=== PATIENT | female | born 1970 | race Caucasian/White ===

== ENCOUNTER → 2019-05-21 09:34 | Outpatient (CLI) | payer OTHER, SELFPAY ==
[2019-05-21 12:57] LABS: Vitamin D,25 Hydroxy 31.2 ng/mL (29.95-100.01)
[2019-05-21 12:58] LABS: Anion Gap 5 (5-15); BUN 10 mg/dL (7-18); BUN/Creat Ratio 13.4 RATIO (10-20); Calcium,Total 8.9 mg/dL (8.5-10.1); Chloride 110 mmol/L (98-107); Cholesterol 126 mg/dL (200); Creatinine, Serum 0.74 mg/dL (0.55-1.02); EST Glomerular Filtration Rate 89 mL/min (>60); Est Glom Filt Rate - Afr Amer 107 mL/min (>60); Glucose 66 mg/dL (74-106); High Density Lipoprotein 37 mg/dL; Potassium 3.6 mmol/L (3.5-5.1); Sodium Level 142 mmol/L (136-145); Triglycerides 97 mg/dL; Very Low Density Lipoprotein 19 mg/dL (5-40)
== END ==
PROVIDERS: Family Provider Family Medicine; PCP Family Medicine; Referring Provider Family Medicine; Visit Provider Family Medicine
DX: Z00.00 Encounter for general adult medical examination without abnormal findings (principal)
CPT/HCPCS: 36415; 80048; 80061; 82306

== ENCOUNTER → 2019-07-19 11:11 | Outpatient (CLI) | payer OTHER, SELFPAY ==
--- NOTE | 2019-07-19 11:14 | BI_ITS ---
MAMMOGRAPHY - BILATERAL SCREENING REASON FOR EXAM: Female, 49 years old. Routine annual screening examination. PERTINENT HISTORY: Grandmother with breast cancer. TECHNIQUE: Digital bilateral breast mo (3D mammographic acquisition) in the CC and MLO projections. 2-D mediolateral oblique (MLO) and craniocaudad (CC) views of both breasts were obtained. CAD: Full Field Digital Mammography with Computer Added Detection was performed. COMPARISON: Comparison is made with prior study dated September 15, 2015 and January 29, 2012. FINDINGS: Breast Composition: The breasts are heterogeneously dense, which may obscure small masses. There are no dominant masses or suspicious calcifications. No other significant abnormalities are identified. There has been no significant change since the prior study. BI/SCREEN MAMM (CAD) W/MO BILAT IMPRESSION: Stable bilateral screening mammogram. Yearly follow-up mammogram recommended. (A) ASSESSMENT CATEGORY: BIRADS Category 1: Negative. A letter regarding these results will be sent to the patient by the facility within 30 days. Approximately 10% of breast cancers are not detected by mammography. A normal mammogram should not delay biopsy of a clinically suspicious abnormality. [id number] Electronically Signed: Yon Delacruz, at 14:24 EDT , Service support ,
== END ==
PROVIDERS: Family Provider Family Medicine; PCP Family Medicine; Referring Provider Family Medicine; Visit Provider Family Medicine
DX: Z12.31 Encounter for screening mammogram for malignant neoplasm of breast (principal)
CPT/HCPCS: 77063; 77067

== ENCOUNTER → 2019-10-20 07:02 | Outpatient (CLI) | payer OTHER, SELFPAY ==
[2019-10-20 10:06] LABS: Absolute Lymphocyte Count 2.42 X10^3/uL (0.83-4.51); Absolute Neutrophil Count 2.6 X10^3/uL (2.0-7.7); Basophil# 0.05 X10^3/uL; Basophil% 0.9 % (0-1); Eosinophil# 0.16 X10^3/uL; Eosinophils% 2.9 % (0-5); Hematocrit 43.7 % (37-47); Hemoglobin 14.1 g/dL (12.0-15.0); Lymphocyte # 2.42 X10^3/ul (4.0); Lymphocyte % 43.2 % (19-41); Mean Corp Hgb Conc 32.3 g/dL (32-36); Mean Corpuscular Hgb 30.4 pg (27.0-32.0); Mean Corpuscular Volume 94.2 fL (81-99); Mean Platelet Vol. 10.8 fl (6.2-12.0); Monocyte# 0.34 X10^3/uL; Monocyte% 6.1 % (0-10); NRBC Flagged by Analyzer 0 % (0-5); Neutrophil # 2.62 X10^3/uL (2.7-7.7); Neutrophil % 46.7 % (47-70); Platelet Count 322 K/mm3 (150-450); RBC Distribution Width CV 12.9 % (11.6-14.6); RBC Distribution Width SD 44.4 fl (35.1-43.9); Red Blood Count 4.64 M/mm3 (4.2-5.4); White Blood Count 5.6 K/mm3 (4.4-11.0)
[2019-10-20 10:33] LABS: AST(SGOT) 20 U/L (15-37); Alanine Aminotransfer ALT/SGPT 34 U/L (13-56); Albumin, Serum 3.8 g/dL (3.2-5.0); Alkaline Phosphatase 80 U/L (45-117); Anion Gap 4 (5-15); BUN 8 mg/dL (7-18); BUN/Creat Ratio 9.6 RATIO (10-20); Calcium,Total 9.1 mg/dL (8.5-10.1); Chloride 109 mmol/L (98-107); Creatinine, Serum 0.83 mg/dL (0.55-1.02); EST Glomerular Filtration Rate 78 mL/min (>60); Est Glom Filt Rate - Afr Amer 94 mL/min (>60); Globulin 3.9 g/dL (2.2-4.2); Glucose 98 mg/dL (74-106); Potassium 3.2 mmol/L (3.5-5.1); Protein, Total 7.7 g/dL (6.4-8.2); Sodium Level 140 mmol/L (136-145)
== END ==
PROVIDERS: Family Provider Family Medicine; PCP Family Medicine; Referring Provider Family Medicine; Visit Provider Family Medicine
DX: K59.00 Constipation, unspecified (principal)
CPT/HCPCS: 36415; 80053; 85025

== ENCOUNTER → 2019-10-25 14:11 | Outpatient (CLI) | payer OTHER, SELFPAY ==
--- NOTE | 2019-10-25 14:13 | CT_ITS ---
STUDY: CT ABDOMEN AND PELVIS WITH CONTRAST REASON FOR EXAM: Female, 49 years old. CONSTIPATION X 2 MONTHS RADIATION DOSAGE (If Supplied By Facility): CTDIvol = ( 9.97 ) mGy, DLP = ( 619.00 ) mGycm TECHNIQUE: Transaxial images were obtained from the dome of the diaphragm to the symphysis pubis without oral contrast. Oral and amp; IV Readi-CAT and amp; 100mL Isovue-300 was administered. Sagittal and coronal images were reconstructed. Individualized dose optimization techniques were used for this CT. COMPARISON: None. FINDINGS: The visualized lung bases are unremarkable. The visualized portions of the heart are within normal limits. Normal liver. There are surgical clips in the gallbladder fossa consistent with a prior cholecystectomy. Normal spleen. Normal pancreas. Normal bilateral adrenal glands. Normal right kidney. Normal left kidney. Normal visualized stomach. Normal small intestine. Increased fecal debris in the colon which may indicate constipation. The appendix is visualized and appears normal. Normal abdominal aorta. Normal inferior vena cava. Normal retroperitoneum. Normal urinary bladder. There is absence of the uterus consistent with a prior hysterectomy. Normal abdominal wall. Degenerative disease at L5-S1. CT/Abdomen/Pelvis WITH Contrast IMPRESSION: Constipation. No acute appendicitis or bowel obstruction. Status post cholecystectomy, remainder of abdominal viscera are unremarkable. Electronically Signed: Reina Stubbs MD at 4:21 EST , Service support ,
== END ==
PROVIDERS: PCP Family Medicine; Referring Provider Family Medicine; Visit Provider Family Medicine
DX: K59.00 Constipation, unspecified (principal)
CPT/HCPCS: 74177; Q9967

== ENCOUNTER → 2019-11-15 16:47 | Outpatient (CLI) | payer OTHER, SELFPAY ==
[2019-11-15 18:45] LABS: Anion Gap 4 (5-15); BUN 7 mg/dL (7-18); BUN/Creat Ratio 8.7 RATIO (10-20); Calcium,Total 9.1 mg/dL (8.5-10.1); Chloride 106 mmol/L (98-107); Creatinine, Serum 0.81 mg/dL (0.55-1.02); EST Glomerular Filtration Rate 81 mL/min (>60); Est Glom Filt Rate - Afr Amer 97 mL/min (>60); Glucose 93 mg/dL (74-106); Potassium 3.7 mmol/L (3.5-5.1); Sodium Level 138 mmol/L (136-145); T4 Total, Thyroxin 5.4 ug/dL (4.8-13.9); Thyroid Stim Hormone (TSH) 1.86 uIU/mL (0.358-3.74)
== END ==
PROVIDERS: PCP Family Medicine; Referring Provider Internal Medicine Gastroenterology; Visit Provider Internal Medicine Gastroenterology
DX: R19.4 Change in bowel habit (principal)
CPT/HCPCS: 36415; 80048; 84436; 84443

== ENCOUNTER → 2019-11-19 14:50 | Outpatient (CLI) | payer OTHER, SELFPAY ==
[2019-11-22 14:41] LABS: HSV 2 IgG 2.96 index (0.00-0.90)
== END ==
PROVIDERS: PCP Family Medicine; Referring Provider Family Medicine; Visit Provider Family Medicine
DX: Z20.828 Contact with and (suspected) exposure to other viral communicable diseases (principal)
CPT/HCPCS: 36415; 86695; 86696

== ENCOUNTER → 2019-11-25 08:03 | Outpatient (CLI) | payer OTHER, SELFPAY ==
--- NOTE | 2019-11-29 08:30 | RAD_ITS ---
STUDY: ABDOMINAL SERIES REASON FOR EXAM: Female, 49 years old. CONSTIPATION. COLONIC TRANSIT EXAM. 3 IMAGES RADIATION DOSAGE (If Supplied By Facility): CTDIvol = ( ) mGy, DLP = ( ) mGycm. Individualized dose optimization techniques were used for this CT.? FLUOROSCOPY TIME (if supplied): ( ) minutes/seconds TECHNIQUE: 3 separate abdominal studies were performed, second performed 10 minutes after the first, third 90 minutes after the first COMPARISON: None. FINDINGS: The initial study at 6:58 AM does not show any evidence of Sitzmarks markers. The bowel gas pattern is unremarkable. No free air or acute abnormalities noted. At 7:08 AM, there are approximately 30 markers along what would be the normal course of the descending colon, and approximately 15 markers along the course of what would be the descending colon, and 2 markers within the pelvis. At 8:31 AM, there are 5 markers left of the L2 vertebral body and approximately 34 markers on the right side of the abdomen likely within the ascending colon and approximately 10 and 6 markers in the pelvis likely within the sigmoid. RAD/Colonic Trans GI/w Mul Image IMPRESSION: No acute abdominal process Markers as described Electronically Signed: Jose Armando Hong MD at 9:29 EST , Service support ,
== END ==
PROVIDERS: PCP Family Medicine; Referring Provider Internal Medicine Gastroenterology; Visit Provider Internal Medicine Gastroenterology
DX: K59.00 Constipation, unspecified (principal)
CPT/HCPCS: 74248

== ENCOUNTER → 2019-11-29 08:17 | Outpatient (CLI) | payer OTHER, SELFPAY | PROVIDERS: PCP Family Medicine; Referring Provider Internal Medicine Gastroenterology; Visit Provider Internal Medicine Gastroenterology | DX: Z00.00 Encounter for general adult medical examination without abnormal findings (principal) ==

== ENCOUNTER → 2019-12-01 06:23 | Outpatient (CLI) | payer OTHER, SELFPAY | PROVIDERS: PCP Family Medicine; Referring Provider Internal Medicine Gastroenterology; Visit Provider Internal Medicine Gastroenterology | DX: Z00.00 Encounter for general adult medical examination without abnormal findings (principal) ==

== ENCOUNTER → 2019-12-03 06:47 | Outpatient (CLI) | payer OTHER, SELFPAY | PROVIDERS: PCP Family Medicine; Referring Provider Internal Medicine Gastroenterology; Visit Provider Internal Medicine Gastroenterology | DX: Z00.00 Encounter for general adult medical examination without abnormal findings (principal) ==

== ENCOUNTER → 2020-07-19 16:22 | Outpatient (CLI) | payer OTHER, SELFPAY ==
--- NOTE | 2020-07-19 16:26 | RAD_ITS ---
STUDY: X-RAY - PELVIS AND BILATERAL HIPS REASON FOR EXAM: Female, 50 years old. Left hip pain TECHNIQUE: AP view of the pelvis.? 2 views of the right hip, and 2 views of the left hip were obtained. COMPARISON: None. FINDINGS: There is a non-specific bowel gas pattern. Normal visualized soft tissue structures. Normal bilateral iliac wings, sacroiliac joints and visualized sacrum. Normal bilateral superior and inferior pubic rami. Normal pubic symphysis. Normal bilateral ischial tuberosities. Normal visualized right femoral head. There is osteoarthritic spur formation of the right acetabular rim. There is mild articular joint space narrowing of the right hip. Normal visualized left femoral head. Normal left acetabulum. Normal left hip joint. RAD/Hips B/L min 2 views w/ Pelvis IMPRESSION: Osteoarthritis of the right hip joint. Electronically Signed: Yon Delacruz, at 15:54 EDT , Service support ,
== END ==
LOC: MTLAB 16:24 → MTRAD 16:24
PROVIDERS: PCP Family Medicine; Referring Provider Family Medicine; Visit Provider Family Medicine
DX: M25.552 Pain in left hip (principal)
CPT/HCPCS: 73521

== ENCOUNTER → 2020-11-20 09:31 | Outpatient (CLI) | payer OTHER, SELFPAY ==
[2020-11-20 12:31] LABS: Vitamin D,25 Hydroxy 22.3 ng/mL
[2020-11-20 12:36] LABS: Anion Gap 6 (5-15); BUN 10 mg/dL (7-18); BUN/Creat Ratio 12.9 RATIO (10-20); Calcium,Total 9.1 mg/dL (8.5-10.1); Chloride 107 mmol/L (98-107); Cholesterol 140 mg/dL (200); Creatinine, Serum 0.78 mg/dL (0.55-1.02); EST Glomerular Filtration Rate 84 mL/min (>60); Est Glom Filt Rate - Afr Amer 102 mL/min (>60); Glucose 74 mg/dL (74-106); High Density Lipoprotein 34 mg/dL; Potassium 3.6 mmol/L (3.5-5.1); Sodium Level 139 mmol/L (136-145); Triglycerides 114 mg/dL; Very Low Density Lipoprotein 23 mg/dL (5-40)
== END ==
PROVIDERS: PCP Family Medicine; Visit Provider Family Medicine
DX: Z00.00 Encounter for general adult medical examination without abnormal findings (principal); R19.7 Diarrhea, unspecified
CPT/HCPCS: 36415; 80048; 80061; 82306

== ENCOUNTER → 2021-04-12 15:22 | Outpatient (CLI) | payer OTHER, SELFPAY ==
--- NOTE | 2021-04-12 15:27 | RAD_ITS ---
STUDY: X-RAY - LEFT CALCANEUS REASON FOR EXAM: Female, 51 years old. HEEL PAIN TECHNIQUE: 2 view(s) of the calcaneus were obtained. COMPARISON: None. FINDINGS: Normal visualized calcaneus. RAD/Calcaneus min 2 Views IMPRESSION: Normal x-ray examination of the calcaneus. Electronically Signed: Yon Delacruz MD at 15:53 EDT , Service support ,
== END ==
PROVIDERS: PCP Family Medicine; Referring Provider Family Medicine; Visit Provider Family Medicine
DX: M79.672 Pain in left foot (principal)
CPT/HCPCS: 73650

== ENCOUNTER → 2021-05-28 16:26 | Outpatient (CLI) | payer OTHER, SELFPAY ==
[2021-05-28 17:44] LABS: Absolute Lymphocyte Count 2.43 X10^3/uL (0.83-4.51); Basophil# 0.03 X10^3/uL; Basophil% 0.4 % (0-1); Eosinophils% 1.4 % (0-5); Hemoglobin 12.4 g/dL (12.0-15.0); Lymphocyte # 2.43 X10^3/ul (0.83-4.51); Lymphocyte % 34.3 % (19-41); Mean Corp Hgb Conc 32.6 g/dL (32-36); Mean Corpuscular Hgb 30.5 pg (27.0-32.0); Mean Corpuscular Volume 93.4 fL (81-99); Mean Platelet Vol. 10.9 fl (6.2-12.0); Monocyte# 0.53 X10^3/uL; Monocyte% 7.5 % (0-10); NRBC Flagged by Analyzer 0 % (0-5); Neutrophil # 3.98 X10^3/uL (2.7-7.7); Neutrophil % 56.1 % (47-70); Platelet Count 292 K/mm3 (150-450); RBC Distribution Width CV 12.5 % (11.6-14.6); Red Blood Count 4.07 M/mm3 (4.2-5.4); White Blood Count 7.1 K/mm3 (4.4-11.0)
[2021-05-28 18:05] LABS: Anion Gap 5 (5-15); BUN 12 mg/dL (7-18); BUN/Creat Ratio 17.5 RATIO (10-20); Calcium,Total 8.8 mg/dL (8.5-10.1); Chloride 105 mmol/L (98-107); Creatinine, Serum 0.68 mg/dL (0.55-1.02); EST Glomerular Filtration Rate 97 mL/min (>60); Est Glom Filt Rate - Afr Amer 117 mL/min (>60); Free T3 2.4 pg/mL (2.18-3.98); Glucose 90 mg/dL (74-106); Potassium 3.3 mmol/L (3.5-5.1); Sodium Level 137 mmol/L (136-145); T4 Total, Thyroxin 5.2 ug/dL (4.8-13.9); Thyroid Stim Hormone (TSH) 2.19 uIU/mL (0.358-3.74)
== END ==
PROVIDERS: PCP Family Medicine; Referring Provider Family Medicine; Visit Provider Family Medicine
DX: L65.9 Nonscarring hair loss, unspecified (principal); R53.83 Other fatigue
CPT/HCPCS: 36415; 80048; 84436; 84443; 84481; 85025

== ENCOUNTER → 2021-07-16 09:40 | Outpatient (CLI) | payer OTHER, SELFPAY ==
--- NOTE | 2021-07-16 09:44 | BI_ITS ---
MAMMOGRAPHY - BILATERAL SCREENING REASON FOR EXAM: Female, 51 years old. Routine annual screening examination. PERTINENT HISTORY: Mother with breast cancer. Grandmother with breast cancer. TECHNIQUE: Digital bilateral breast mo (3D mammographic acquisition) in the CC and MLO projections. 2-D mediolateral oblique (MLO) and craniocaudad (CC) views of both breasts were obtained. CAD: Full Field Digital Mammography with Computer Added Detection was performed. COMPARISON: Comparison is made with prior study 07/19/2019 and 09/15/2015. FINDINGS: Breast Composition: The breasts are heterogeneously dense, which may obscure small masses. There are no dominant masses or suspicious calcifications. Calcified nodules are seen in the upper outer aspect of the left breast. This is suggestive of calcifying fibroadenomas. No other significant abnormalities are identified. There has been no significant change since the prior study. BI/SCRN MAMM (CAD)W/MO BILAT IMPRESSION: Stable bilateral screening mammogram. Yearly follow-up mammogram recommended. (A) ASSESSMENT CATEGORY: BIRADS Category 2: Benign. A letter regarding these results will be sent to the patient by the facility within 30 days. Approximately 10% of breast cancers are not detected by mammography. A normal mammogram should not delay biopsy of a clinically suspicious abnormality. [id number] Electronically Signed: Yon Delacruz MD at 11:01 EDT , Service support ,
== END ==
PROVIDERS: PCP Family Medicine; Referring Provider Family Medicine; Visit Provider Family Medicine
DX: Z12.31 Encounter for screening mammogram for malignant neoplasm of breast (principal); Z80.3 Family history of malignant neoplasm of breast
CPT/HCPCS: 77063; 77067

== ENCOUNTER → 2022-01-25 | Outpatient (CLI) | payer OTHER, SELFPAY ==
--- NOTE | 2022-01-25 14:43 | RAD_ITS ---
INDICATION: PAIN EXAMINATION/TECHNIQUE: X-RAY - LEFT XR Shoulder Min 2 Views 4 VIEWS COMPARISON: None. FINDINGS: SOFT TISSUES: No soft tissue swelling or gas. No radiopaque foreign body. BONES/JOINTS: No acute fracture or subluxation.. Normal alignment. Preservation of the joint space.. No sclerotic or destructive changes observed. RAD/Shoulder min 2 Views IMPRESSION: No evidence of acute osseous abnormality is seen. Electronically Signed: Juan Henry MD at 16:05 EDT ,
[2022-01-25 17:36] LABS: Absolute Lymphocyte Count 2.61 X10^3/uL (0.83-4.51); Absolute Neutrophil Count 3.1 X10^3/uL (2.0-7.7); Basophil# 0.05 X10^3/uL; Basophil% 0.8 % (0-1); Eosinophil# 0.09 X10^3/uL; Eosinophils% 1.4 % (0-5); Hematocrit 40.9 % (37-47); Hemoglobin 13.1 g/dL (12.0-15.0); Lymphocyte # 2.61 X10^3/ul (0.83-4.51); Lymphocyte % 41.5 % (19-41); Mean Corpuscular Hgb 29.7 pg (27.0-32.0); Mean Corpuscular Volume 92.7 fL (81-99); Monocyte# 0.46 X10^3/uL; Monocyte% 7.3 % (0-10); NRBC Flagged by Analyzer 0 % (0-5); Neutrophil # 3.07 X10^3/uL (2.7-7.7); Neutrophil % 48.8 % (47-70); Platelet Count 341 K/mm3 (150-450); RBC Distribution Width CV 13.1 % (11.6-14.6); RBC Distribution Width SD 44.8 fl (35.1-43.9); Red Blood Count 4.41 M/mm3 (4.2-5.4); White Blood Count 6.3 K/mm3 (4.4-11.0)
[2022-01-25 17:52] LABS: Vitamin D,25 Hydroxy 27.3 ng/mL
[2022-01-25 17:56] LABS: ALB/GLOB Ratio 0.9 RATIO (0.9-2.4); AST(SGOT) 20 U/L (15-37); Alanine Aminotransfer ALT/SGPT 31 U/L (13-56); Albumin, Serum 3.9 g/dL (3.2-5.0); Alkaline Phosphatase 74 U/L (45-117); Anion Gap 4 (5-15); BUN 6 mg/dL (7-18); BUN/Creat Ratio 7.5 RATIO (10-20); Calcium,Total 8.8 mg/dL (8.5-10.1); Chloride 107 mmol/L (98-107); EST Glomerular Filtration Rate 81 mL/min (>60); Est Glom Filt Rate - Afr Amer 98 mL/min (>60); Globulin 4.2 g/dL (2.2-4.2); Glucose 85 mg/dL (74-106); Potassium 3.6 mmol/L (3.5-5.1); Protein, Total 8.1 g/dL (6.4-8.2); Sodium Level 139 mmol/L (136-145); Thyroid Stim Hormone (TSH) 1.83 uIU/mL (0.358-3.74)
== END | disposition home or self-care (01) ==
PROVIDERS: PCP Family Medicine; Referring Provider Family Medicine; Visit Provider Family Medicine
DX: R63.5 Abnormal weight gain (principal); R53.83 Other fatigue; M25.512 Pain in left shoulder
CPT/HCPCS: 36415; 73030; 80053; 82306; 84443; 85025

== ENCOUNTER → 2022-05-17 | Outpatient (CLI) | payer OTHER, SELFPAY ==
--- NOTE | 2022-05-17 08:45 | MRI_ITS ---
STUDY: MRI CERVICAL SPINE WITHOUT CONTRAST REASON FOR EXAM: Female, 52 years old. CERVICAL STENOSIS TECHNIQUE: Standardized fat and water weighted pulse sequences were obtained in the sagittal and axial planes. COMPARISON: None FINDINGS: Normal foramen magnum and brainstem-cervical cord junction. Normal craniovertebral junction. Normal anterior atlantoaxial articulation. Normal odontoid process. Normal cervical lordosis. Normal vertebral bodies and posterior osseous elements. C2-3: Normal endplates. Normal disc height, signal and morphology. Normal central canal and intervertebral neural foramina. C3-4: Normal endplates. Normal disc height, signal and morphology. Normal central canal and intervertebral neural foramina. C4-5: Normal endplates. Normal disc height, signal and morphology. Normal central canal and intervertebral neural foramina. C5-6: Normal endplates. Normal disc height, signal and morphology. Normal central canal and intervertebral neural foramina. C6-7: Normal endplates. Normal disc height, signal and morphology. Normal central canal and intervertebral neural foramina. Small perineural cyst in the right intervertebral neural foramen. C7-T1: Normal endplates. Normal disc height, signal and morphology. Normal central canal and intervertebral neural foramina. Small perineural cyst in both intervertebral neural foramina. T1-T2, T2-T3, T3-T4 and T4-T5: (Sagittal only). Normal endplates. Normal disc height, signal and morphology. Normal central canal and intervertebral neural foramina. Small perineural cysts in both T1-T2 intervertebral neural foramina. Small perineural cyst in the Right T2-T3 intervertebral neural foramen and left T4-T5 intervertebral neural foramen. Normal cervical cord. Normal included upper thoracic spinal cord. Normal included brainstem and cerebellum. Normal visualized soft tissue structures. MRI/Spine Cervical (Routine) IMPRESSION: Normal unenhanced MR examination of the cervical spine. Electronically Signed: Nathan Shearer MD at 10:41 EDT ,
== END | disposition home or self-care (01) ==
PROVIDERS: PCP Family Medicine; Referring Provider Family Medicine; Visit Provider Family Medicine
DX: M48.02 Spinal stenosis, cervical region (principal)
CPT/HCPCS: 72141

== ENCOUNTER → 2022-07-16 | Outpatient (CLI) | payer OTHER, SELFPAY ==
--- NOTE | 2022-07-16 10:09 | BI_ITS ---
MAMMOGRAPHY - BILATERAL SCREENING REASON FOR EXAM: Female, 52 years old. Routine annual screening examination. PERTINENT HISTORY: Mother with breast cancer. Grandmother with breast cancer. TECHNIQUE: Digital bilateral breast mo (3D mammographic acquisition) in the CC and MLO projections. 2-D mediolateral oblique (MLO) and craniocaudad (CC) views of both breasts were obtained. CAD: Full Field Digital Mammography with Computer Added Detection was performed. COMPARISON: Comparison is made with prior studies 07/16/2021 and 07/19/2019. FINDINGS: Breast Composition: The breasts are heterogeneously dense, which may obscure small masses. There is a 3 cm x 2.6 cm well-defined nodule in the upper lateral aspect of the left breast. Correlation with ultrasound is recommended. Stable calcified nodules in the upper outer quadrant of the left breast. No other significant abnormalities are identified. BI/SCRN MAMM (CAD)W/MO BILAT IMPRESSION: 3 cm x 2.6 cm well-defined nodule in the upper outer quadrant of the left breast. Correlation with ultrasound is recommended. ASSESSMENT CATEGORY: BIRADS Category 0: Incomplete. Need additional imaging evaluation. A letter regarding these results will be sent to the patient by the facility within 30 days. Approximately 10% of breast cancers are not detected by mammography. A normal mammogram should not delay biopsy of a clinically suspicious abnormality. [id number] Electronically Signed: Yon Delacruz MD at 11:35 EDT ,
== END | disposition home or self-care (01) ==
LOC: OPBI 10:08
PROVIDERS: PCP Family Medicine; Visit Provider Family Medicine
DX: Z12.31 Encounter for screening mammogram for malignant neoplasm of breast (principal); Z80.3 Family history of malignant neoplasm of breast; N63.21 Unspecified lump in the left breast, upper outer quadrant
CPT/HCPCS: 77063; 77067

== ENCOUNTER → 2022-07-17 | Outpatient (CLI) | payer OTHER, SELFPAY ==
--- NOTE | 2022-07-17 09:22 | US_ITS ---
STUDY: ULTRASOUND BREAST - LEFT REASON FOR EXAM: Female, 52 years old. Abnormal screening mammogram. TECHNIQUE: Axial and longitudinal images of the LEFT breast were performed with a high resolution ultrasound transducer. # OF IMAGES: 39 COMPARISON: Comparison is made with prior mammogram dated 07/16/2022. FINDINGS: LEFT Breast: Multiple cysts are seen. The largest cyst is at the 1 o''clock position of the breast at 3 cm from nipple measuring 2.5 cm x 2.9 cm x 1.5 cm. US/Breast Limited Unilateral IMPRESSION: Multiple cysts. ASSESSMENT CATEGORY: BIRADS Category 2: Benign. A letter regarding these results will be sent to the patient by the facility within 30 days. Electronically Signed: Yon Delacruz MD at 15:43 EDT ,
== END | disposition home or self-care (01) ==
LOC: OPUS 09:20
PROVIDERS: PCP Family Medicine; Visit Provider Family Medicine
DX: N63.20 Unspecified lump in the left breast, unspecified quadrant (principal)
CPT/HCPCS: 76642

== ENCOUNTER → 2023-01-03 | Outpatient (CLI) | payer OTHER, SELFPAY ==
[2023-01-03 13:58] LABS: Follicle Stimulating Hormone 42.6 mIU/mL; Luteinizing Hormone 41.9 mIU/mL; Thyroid Stim Hormone (TSH) 1.88 uIU/mL (0.358-3.74)
[2023-01-08 09:49] LABS: Estrogen, Total, Serum 49 pg/mL (.)
== END | disposition home or self-care (01) ==
LOC: MTLAB 10:18
PROVIDERS: PCP Family Medicine; Referring Provider Family Medicine; Visit Provider Family Medicine
DX: Z78.0 Asymptomatic menopausal state (principal)
CPT/HCPCS: 36415; 82672; 83001; 83002; 84443

== ENCOUNTER → 2023-06-25 | Outpatient (CLI) | payer OTHER, SELFPAY ==
[2023-06-25 11:18] LABS: Anion Gap 5 (5-15); BUN 9 mg/dL (7-18); BUN/Creat Ratio 9.8 RATIO (10-20); Calcium,Total 9.9 mg/dL (8.5-10.1); Chloride 99 mmol/L (98-107); Creatinine, Serum 0.92 mg/dL (0.55-1.02); EST Glomerular Filtration Rate 69 mL/min (>60); Est Glom Filt Rate - Afr Amer 83 mL/min (>60); Glucose 98 mg/dL (74-106); Potassium 3.4 mmol/L (3.5-5.1); Sodium Level 137 mmol/L (136-145)
== END | disposition home or self-care (01) ==
LOC: MFPLAB 08:52
PROVIDERS: PCP Family Medicine; Visit Provider Family Medicine
DX: R25.2 Cramp and spasm (principal)
CPT/HCPCS: 36415; 80048

== ENCOUNTER → 2023-09-12 | Outpatient (CLI) | payer OTHER, SELFPAY ==
--- NOTE | 2023-09-12 10:47 | BI_ITS ---
MAMMOGRAPHY - BILATERAL SCREENING REASON FOR EXAM: Female, 53 years old. Routine annual screening examination. PERTINENT HISTORY: Mother with breast cancer. TECHNIQUE: Digital bilateral breast mo (3D mammographic acquisition) in the CC and MLO projections. 2-D mediolateral oblique (MLO) and craniocaudad (CC) views of both breasts were obtained. CAD: Full Field Digital Mammography with Computer Added Detection was performed. COMPARISON: Comparison is made with prior study July 16, 2022 and July 16, 2021. FINDINGS: Breast Composition: The breasts are heterogeneously dense, which may obscure small masses. The previously seen nodular density in the upper outer aspect of the left breast in size. It presently measures 1.3 cm. Stable calcification at that site. No other significant abnormalities are identified. BI/SCRN MAMM (CAD)W/MO BILAT IMPRESSION: Stable bilateral screening mammogram. Yearly follow-up mammogram recommended. (A) ASSESSMENT CATEGORY: BIRADS Category 2: Benign. A letter regarding these results will be sent to the patient by the facility within 30 days. Approximately 10% of breast cancers are not detected by mammography. A normal mammogram should not delay biopsy of a clinically suspicious abnormality. [id number] Electronically Signed: Yon Delacruz MD at 12:33 EST ,
== END | disposition home or self-care (01) ==
LOC: OPBI 10:36
PROVIDERS: PCP Family Medicine; Referring Provider Family Medicine; Visit Provider Family Medicine
DX: Z12.31 Encounter for screening mammogram for malignant neoplasm of breast (principal)
CPT/HCPCS: 77063; 77067

== ENCOUNTER → 2023-11-24 | Outpatient (CLI) | payer BC, SELFPAY ==
[2023-11-24 18:25] LABS: Anion Gap 2 (5-15); BUN 8 mg/dL (7-18); Calcium,Total 8.7 mg/dL (8.5-10.1); Chloride 108 mmol/L (98-107); Creatinine, Serum 0.66 mg/dL (0.55-1.02); EST Glomerular Filtration Rate 99 mL/min (>60); Est Glom Filt Rate - Afr Amer 120 mL/min (>60); Glucose 83 mg/dL (74-106); Potassium 3.1 mmol/L (3.5-5.1); Sodium Level 141 mmol/L (136-145); Thyroid Stim Hormone (TSH) 2.31 uIU/mL (0.358-3.74)
== END | disposition home or self-care (01) ==
LOC: MTLAB 16:59
PROVIDERS: PCP Family Medicine; Referring Provider Family Medicine; Visit Provider Family Medicine
DX: R25.2 Cramp and spasm (principal); E66.9 Obesity, unspecified
CPT/HCPCS: 36415; 80048; 84443

== ENCOUNTER 2024-01-06 13:00 | Emergency (ER) | payer BC, SELFPAY ==
[2024-01-06 13:01] VITALS: BP 148/91; PULSE 79; RESP 16; TEMP 36.2; O2SAT 97; BMI 26.9
--- NOTE | 2024-01-06 13:25 | EDS_ITS ---
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 Patient reports she normally has fullness in her right ear. However she is having episodes of bilateral ear pressure and head pressure for the past 2 days. These episodes occur approximately every 15 minutes lasting for approximately 1 minute associated with nausea. She also has throat pressure associated with these episodes. She reports she does not drink alcohol, smoke, does not consume much caffeine, and limits her sodium intake. She was initially diagnosed in May 2023 with M?ni?re's. She reports she was last seen by Dr. Enrique Saldivar 09/27. At that time she was prescribed triamterene?HCTZ for which she says quit working at the end of October 2023. She also takes Claritin daily at the recommendation of Dr. Enrique Saldivar. She denies exacerbating events. She denies any recent illnesses. Denies recent travel. Prior similar symptoms: No Recent Illness/Hospitalization: No PFSH <Flor Valle RN - Last Filed: 01/06/24 13:41> [facility] Medical History FH: cholecystectomy Gallstones History of back problems IBS (irritable bowel syndrome) Seasonal allergies Home Medications dicyclomine 10 mg capsule 10 mg PO BID 05/24/22 [History Last Taken Unknown] fluticasone propionate 50 mcg/actuation nasal spray,suspension gm intranasal 05/24/22 [History Last Taken Unknown] Saccharomyces boulardii 250 mg capsule (Daily Probiotic (S. boulardii)) 250 mg PO BID 07/22/23 [History Last Taken Unknown] mirtazapine 15 mg tablet (Remeron) 7.5 mg PO DAILY 07/22/23 [History Last Taken Unknown] triamterene 37.5 mg-hydrochlorothiazide 25 mg capsule 1 cap PO DAILY 07/22/23 [History Last Taken Unknown] prednisone 10 mg tablet 10 mg PO UD #33 tabs 01/06/24 [Rx Last Taken Unknown] Allergy/AdvReac Type Severity Reaction Status Date / Time bupropion [From Wellbutrin] Allergy Mild Itching Verified 01/06/24 13:01 Family History Mother Breast cancer Arthritis Depression Hypertension High cholesterol Surgical History History of hysterectomy History of lumbar surgery Hx of section Social History Smoking Status: Former smoker alcohol intake: never substance use type: does not use ROS <Flor Valle RN - Last Filed: 01/06/24 13:41> ROS ED Constitutional Constitutional ED: Denies chills, fever(s) or sweats Eyes Eyes: Denies change in vision ENT ENT ED: Reports ear pain bilateral and other Details: Ear pressure. Also reports pressure in her throat. Cardiovascular Cardiovascular: Denies chest pain, orthopnea, palpitations or racing heartbeat Respiratory/Chest Respiratory/Chest: Denies cough, dyspnea or orthopnea Gastrointestinal Gastrointestinal: Reports nausea; Denies abdominal pain, diarrhea or vomiting Genitourinary Genitourinary ED: Denies dysuria, hematuria or urinary frequency Musculoskeletal Musculoskeletal: Denies arthralgias or myalgias Integumentary Denies rash Neurologic Neurologic: Reports other Details: Head pressure Psychiatric Psychiatric: Denies anxiety or depression EXAM <Flor Valle RN - Last Filed: 01/06/24 13:41> Physical Exam Narrative Exam Narrative: Patient is awake, alert, cooperative, good historian Const Vital Signs: 01/06/24 13:01 Temperature 97.1 F L Temperature Source Temporal Pulse Rate 79 Respiratory Rate 16 Blood Pressure 148/91 H Blood Pressure Mean 110 Pulse Ox 97 Oxygen Delivery Method Room Air Positive well nourished and well developed General Appearance ED: well developed and NAD HEENT Reports TM's clear and moist mucous membranes HEENT Narrative: Bilateral ear exam reveals shiny tympanic membrane. No bulging noted. No drainage noted. Negative for trauma Tympanic Membrane ED: Yes TM's clear bilateral Eyes PERRL and EOMs intact bilaterally Neck no lymphadenopathy, supple and no JVD Chest Wall inspection of chest normal and palpation of chest normal Resp normal respiratory effort and clear to auscultation bilaterally Auscultation: Negative for rales, rhonchi, wheezes or diminished lung sounds Cardio regular rate, regular rhythm, S1 normal heart sound and S2 normal heart sound GI normal to inspection, nondistended, normoactive bowel sounds and non-tender Palpation: soft Narrative: Denies dysuria, hematuria, and urinary frequency Extremity normal to inspection General Extremety ED: Negative for edema or tenderness General Extremity: Negative for edema Neuro oriented x3 Sensorium / Orientation: alert Motor Exam: strength 5/5 throughout Psych mental status grossly normal Skin no rashes or lesions noted, no wounds and skin turgor normal <Dr. Aleksandar Cason MD - Last Filed: 01/06/24 15:18> Physical Exam Const Vital Signs: 01/06/24 13:01 Temperature 97.1 F L Temperature Source Temporal Pulse Rate 79 Respiratory Rate 16 Blood Pressure 148/91 H Blood Pressure Mean 110 Pulse Ox 97 Oxygen Delivery Method Room Air MDM <Flor Valle RN - Last Filed: 01/06/24 13:41> [facility] Narrative Medical decision making narrative: Dr. Enrique Saldivar's office contacted regarding patient. I spoke with Trudi who spoke with Dr. Saldivar who recommended a course of prednisone and follow-up with his office for potential MRI. Patient updated on plan of care and agreeable. Patient to be discharged home. Differential Diagnosis Differential Diagnosis: Otitis media Differential Diagnosis: M?ni?re's disease Management Discussion w/another healthcare provider: Other (Dr. Cason, ED provider.) <Dr. Aleksandar Cason MD - Last Filed: 01/06/24 15:18> [facility] Narrative Medical decision making narrative: Dr. Enrique Saldivar's office contacted regarding patient. I spoke with Trudi who spoke with Dr. Saldivar who recommended a course of prednisone and follow-up with his office for potential MRI. Patient updated on plan of care and agreeable. Patient to be discharged home. I have personally performed a face to face assessment of the patient and have reviewed the JOHNSON Note. I performed a substantive portion of the visit including all aspects of the following. My sin findings include: History is remarkable for cochlear M?ni?re's disease. Patient presents with a pressure-like sensation and throbbing bilaterally. This been going on for some time. She has been following Dr. Enrique Saldivar for months. Patient denies double vision, blurred vision loss of vision. Trouble speech or swallowing. Denies paresthesia, anesthesia medics. 3 days ago she had some trouble with balance. This was transient. She denies cardiac respiratory symptoms. She denies black or maroon-colored stool. She denies urologic symptoms. Exam is unremarkable. Head is atraumatic, cephalic. Ears normal. TMs normal. Nares patent. Uvula midline. No deviation with protrusion. Neck supple. Trachea midline. There is no stridor. There is no carotid bruits. Heart is regular. Rate is normal. There is no murmur, gallop or rub. Lungs with auscultation. New Patient is alert orient x 3. There is no dysmetria. Motor is 5/5. Sensations intact. DTRs are 2+ at the bicep, brachialis, tricep, patella and ankle. There is no clonus Babinski sign noted. Medical Decision Making in light of patient's history and the fact that she is scheduled to see Dr. Enrique Saldivar this month's office was contacted. He agrees with administration of steroids. She is to call the office and he will have her seen this week and order outpatient MRI. Other additions or changes: None Discharge Plan Triage Chief Complaint: Ear Problem Other Complaint: Headache ED Provider: Aleksandar Cason Dx/Rx/DC Orders Clinical Impression: Meniere's disease Instructions: ED Meniere's Disease Prescriptions: New prednisone 10 mg tablet 10 mg PO UD Qty: 33 0RF Rx Instructions: Take 4 tablets daily for 3 days, then 3 daily for 3 days, then 2 daily for 3 days, then 1 a day for 3 days then 1 QOD for 3 doses. No Action dicyclomine 10 mg capsule 10 mg PO BID fluticasone propionate 50 mcg/actuation spray,suspension intranasal Patient Comments: USE 1 SPRAY IN THE NOSTRIL TWICE A DAY triamterene-hydrochlorothiazid 37.5-25 mg capsule 1 cap PO DAILY Saccharomyces boulardii [Daily Probiotic (S. boulardii)] 250 mg capsule 250 mg PO BID mirtazapine [Remeron] 15 mg tablet 7.5 mg PO DAILY Primary Care Provider: Dirk Hayes Referrals: Enrique Saldivar MD [Med Staff - Active Staff] - (Call office for follow-up) Dirk Hayes MD [Primary Care Provider] - Activity Restrictions/Additional Instructions: Take prednisone as prescribed. If feeling dizzy, sit or lay down to avoid injury. Call Dr. Saldivar's office for follow-up including possible MRI. Disposition Disposition: Home, Self Care Discharge Date/Time: 01/06/24 14:07
[2024-01-06] MEDS: predniSONE 20 MG Tablet 60 MG PO (14:00)
== END 2024-01-06 14:07 | disposition home or self-care (01) ==
PROVIDERS: Emergency Provider Emergency Medicine; PCP Family Medicine; Visit Provider Emergency Medicine
DX: H81.03 Meniere's disease, bilateral (principal); Z87.891 Personal history of nicotine dependence
CPT/HCPCS: 99283

== ENCOUNTER → 2024-01-12 | Outpatient (CLI) | payer BC, SELFPAY ==
[2024-01-12 15:43] LABS: Anion Gap 7 (5-15); BUN 13 mg/dL (7-18); BUN/Creat Ratio 12.5 RATIO (10-20); Calcium,Total 9.9 mg/dL (8.5-10.1); Chloride 97 mmol/L (98-107); Creatinine, Serum 1.04 mg/dL (0.55-1.02); EST Glomerular Filtration Rate 59 mL/min (>60); Est Glom Filt Rate - Afr Amer 72 mL/min (>60); Glucose 97 mg/dL (74-106); Potassium 3.2 mmol/L (3.5-5.1); Sodium Level 135 mmol/L (136-145)
== END | disposition home or self-care (01) ==
LOC: MFPLAB 11:23
PROVIDERS: PCP Family Medicine; Visit Provider Family Medicine
DX: E87.6 Hypokalemia (principal)
CPT/HCPCS: 36415; 80048

== ENCOUNTER → 2024-01-24 | Outpatient (CLI) | payer BC, SELFPAY ==
[2024-01-24 11:05] LABS: Anion Gap 7 (5-15); BUN 7 mg/dL (7-18); BUN/Creat Ratio 6.7 RATIO (10-20); Calcium,Total 9.2 mg/dL (8.5-10.1); Chloride 103 mmol/L (98-107); Creatinine, Serum 1.05 mg/dL (0.55-1.02); EST Glomerular Filtration Rate 59 mL/min (>60); Est Glom Filt Rate - Afr Amer 71 mL/min (>60); Glucose 107 mg/dL (74-106); Potassium 3.2 mmol/L (3.5-5.1); Sodium Level 140 mmol/L (136-145)
== END | disposition home or self-care (01) ==
LOC: LAB 10:12
PROVIDERS: PCP Family Medicine; Referring Provider Family Medicine; Visit Provider Family Medicine
DX: E87.6 Hypokalemia (principal)
CPT/HCPCS: 36415; 80048

== ENCOUNTER → 2024-01-29 | Outpatient (CLI) | payer BC, SELFPAY ==
--- NOTE | 2024-01-29 06:36 | MRI_ITS ---
STUDY: MRI BRAIN WITH AND WITHOUT CONTRAST (ATTENTION INTERNAL AUDITORY CANALS - I.A.C.''s) REASON FOR EXAM: Female, 53 years old. ASYMETRIC HEARING LOSS, RT TINNITUS TECHNIQUE: Standardized multiplanar fat and water weighted pulse sequences were obtained. IV 15ml clariscan was administered for the contrast portion of the examination. COMPARISON: None. FINDINGS: Normal bilateral temporal bones. Normal bilateral internal auditory canals. There is no demonstrated intracanalicular or cisternal vestibular schwannoma (acoustic neuroma). There is no enhancement of the bilateral VIIth or VIIIth cranial nerves. Normal bilateral cochlea, vestibules and semicircular canals. Normal size of the ventricles and extra-axial spaces for the patient''s age. Normal white matter tracts of the supratentorial brain. There is no evidence for recent intracranial ischemia or other cause of cytotoxic edema on diffusion weighted imaging (DWI). Normal bilateral basal ganglia. Normal thalami. Normal flow voids within the major intracranial circulation suggesting patency by spin echo criteria. Normal venous enhancement. There is no enhancing intra-axial or extra-axial abnormality. There is no extra-axial fluid accumulation. Normal sella turcica, pituitary gland, infundibular stalk, optic chiasm and hypothalamus. Normal tectal plate and pineal gland. Normal midbrain, arcelia and medulla. Normal cerebellum. Normal basal cisterns. No demonstrated orbital abnormality, within the constraints of a routine brain study. Normal visualized paranasal sinuses. Normal calvarium and skull base. Normal visualized soft tissue structures. Normal visualized upper cervical spine. MRI/Brain W/WO Contrast IMPRESSION: Normal unenhanced and enhanced MRI of the bilateral internal auditory canals (I.A.C''s). Electronically Signed: Juan Harris MD at 21:37 EDT ,
== END | disposition home or self-care (01) ==
PROVIDERS: PCP Family Medicine; Referring Provider Otolaryngology; Visit Provider Otolaryngology
DX: H90.41 Sensorineural hearing loss, unilateral, right ear, with unrestricted hearing on the contralateral side (principal); H93.11 Tinnitus, right ear
CPT/HCPCS: 70553; A9575

== ENCOUNTER → 2024-03-24 | Outpatient (CLI) | payer BC, SELFPAY ==
[2024-03-24 10:33] LABS: Erythrocyte Sedimentation Rate 8 mm/hr (0-30)
[2024-03-24 11:32] LABS: Anion Gap 10 (5-15); BUN 14 mg/dL (7-18); BUN/Creat Ratio 14.4 RATIO (10-20); Chloride 104 mmol/L (98-107); Creatinine, Serum 0.97 mg/dL (0.55-1.02); EST Glomerular Filtration Rate 64 mL/min (>60); Est Glom Filt Rate - Afr Amer 77 mL/min (>60); Glucose 96 mg/dL (74-106); Magnesium 2.3 mg/dL (1.6-2.6); Potassium 3.1 mmol/L (3.5-5.1); Rheumatoid Factor < 10.0 IU/mL (<15); Sodium Level 140 mmol/L (136-145)
[2024-03-25 14:11] LABS: ANTINUCLEAR ANTIBODIES DIRECT Negative (Negative)
== END | disposition home or self-care (01) ==
LOC: MFPLAB 09:01
PROVIDERS: PCP Family Medicine; Visit Provider Family Medicine
DX: H81.09 Meniere's disease, unspecified ear (principal); M25.50 Pain in unspecified joint
CPT/HCPCS: 36415; 80048; 83735; 85652; 86038; 86431

== ENCOUNTER → 2024-04-17 | Outpatient (CLI) | payer BC, SELFPAY ==
[2024-04-17 12:41] LABS: Anion Gap 7 (5-15); BUN 10 mg/dL (7-18); BUN/Creat Ratio 11.1 RATIO (10-20); Calcium,Total 9.6 mg/dL (8.5-10.1); Chloride 104 mmol/L (98-107); EST Glomerular Filtration Rate 70 mL/min (>60); Est Glom Filt Rate - Afr Amer 85 mL/min (>60); Glucose 104 mg/dL (74-106); Potassium 2.8 mmol/L (3.5-5.1); Sodium Level 139 mmol/L (136-145)
== END | disposition home or self-care (01) ==
PROVIDERS: PCP Family Medicine; Referring Provider Family Medicine; Visit Provider Family Medicine
DX: E87.6 Hypokalemia (principal)
CPT/HCPCS: 36415; 80048

== ENCOUNTER → 2024-05-13 | Outpatient (CLI) | payer BC, SELFPAY ==
[2024-05-13 18:11] LABS: Anion Gap 4 (5-15); BUN 7 mg/dL (7-18); Calcium,Total 9.2 mg/dL (8.5-10.1); Chloride 107 mmol/L (98-107); EST Glomerular Filtration Rate 93 mL/min (>60); Est Glom Filt Rate - Afr Amer 112 mL/min (>60); Glucose 92 mg/dL (74-106); Potassium 3.9 mmol/L (3.5-5.1); Sodium Level 139 mmol/L (136-145)
== END | disposition home or self-care (01) ==
LOC: MFPLAB 16:25
PROVIDERS: PCP Family Medicine; Visit Provider Family Medicine
DX: H81.09 Meniere's disease, unspecified ear (principal)
CPT/HCPCS: 36415; 80048

== ENCOUNTER → 2024-06-24 | Outpatient (CLI) | payer BC, SELFPAY ==
[2024-06-24 11:03] LABS: Anion Gap 7 (5-15); BUN 9 mg/dL (7-18); BUN/Creat Ratio 10.8 RATIO (10-20); Calcium,Total 9.6 mg/dL (8.5-10.1); Chloride 108 mmol/L (98-107); Creatinine, Serum 0.83 mg/dL (0.55-1.02); EST Glomerular Filtration Rate 76 mL/min (>60); Est Glom Filt Rate - Afr Amer 92 mL/min (>60); Glucose 84 mg/dL (74-106); Potassium 3.7 mmol/L (3.5-5.1); Sodium Level 141 mmol/L (136-145)
== END | disposition home or self-care (01) ==
LOC: MFPLAB 08:53
PROVIDERS: PCP Family Medicine; Visit Provider Family Medicine
DX: E87.6 Hypokalemia (principal)
CPT/HCPCS: 36415; 80048

== ENCOUNTER 2024-06-28 17:30 | Outpatient (RCR) | payer BC, SELFPAY ==
--- NOTE | 2024-06-09 19:10 | HP.PTEVAL ---
Patient's Visit Information Visit Information Visit Information: MARVIN MARIANO is a 54 year old F referred to Physical Therapy by Dr. Pepe Garcia MD with a diagnosis of L Impingement Syndrome. Date of Evaluation: 06/09/24 Physical Therapist: CARMEN Mcneal Visit Plan Frequency: 2x /Week Duration: 6 Weeks Plan: 2X/ week for 4-6 weeks for AAROM, scapular and RC strength, postural exercises with HEP HEP: mid rows green, supine wand flexion, scapular retraction Subjective Subjective: Pt does not have much pain now since the injection. She still has occ discomfort occ. She was on vacation all last week. She got the injection about 1 month ago. She can lay on that shoulder now. She does find that in the morning she is achy but it goes away. She feels like her L shoulder is weak. She is L handed. She has no N&T. She did an x-ray and it showed nothing. This is her 3rd injection and she gets a year out of them. She will get an MRI once done with PT. She is R handed. 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 R AROM 170 flexion and 180 ABD. Full IR B shoulders B UE MMT: R shoulder flex 9.9 and L 8.9 R shoulder ABD 9.9 and L 8.9 R shoulder ER 12.2 and L 13.6 R shoulder IR 11.7 and L 12.2 +HK on the L Bicep reflex B 2+/3 PROM L shoulder painful at end range Balance/Special Test Scores Quick DASH Score: 11.3625 Goals Goal 1:: I HEP Goal Time Frame: 4-6 Weeks Goal 2:: Full shoulder flexion and abd with no pain Goal Time Frame: 4-6 Weeks Goal 3:: Sit with more upright posture during treatment sessions Rehabilitation Potential Rehabilitation Potential: Good Anticipated Interventions Patient/Client Instruction: Educate patient on: Condition and Plan of Care For the Purpose of:: To decrease pain, To increase ROM, To improve nutrient delivery to tissue, To improve muscle performance and motor function, To improve ability to perform ADL's, To increase tolerance to activity/condition/position, To improve performance and independence with ADL's, To decrease level of supervision to perform tasks, To improve health of tissue, To decrease soft tissue restriction and To increase flexibility/ROM Therapeutic Exercise to Include: Strength training, Postural training, Flexibilty training, Passive ROM, Active ROM and Scapular Strength/Stabilization For the Purpose of:: To decrease pain, To decrease swelling/inflammation, To increase ROM, To improve nutrient delivery to tissue, To increase oxygenation perfusion, To improve muscle performance and motor function, To improve ability to perform ADL's, To increase tolerance to activity/condition/position, To improve performance and independence with ADL's, To decrease level of supervision to perform tasks, To improve ability of physical actions for home/community/work/leisure, To improve gait and locomotor functions, To improve health of tissue, To decrease soft tissue restriction and To increase flexibility/ROM Manual Therapy Techniques to Include: Soft tissue mobilization For the Purpose of:: To increase ROM Cryotherapy (ice pack, ice massage): Yes Thermo therapy (hot pack): Yes Ultrasound (thermal/non thermal): Yes For the Purpose of:: To decrease pain, To decrease swelling/inflammation, To improve muscle performance and motor function and To improve ability to perform ADL's Text: Thank you for the opportunity to evaluate your patient. For Medicare and Medicare HMO plans, please review the plan of care and approve it. It will need to be FAXED BACK to us at [phone] for Medicare purposes. For Medicare only, by signing this I certify the plan of care. Please let me know if there are questions or concerns regarding this plan of care. Physician Signature: Date:
--- NOTE | 2024-08-10 07:24 | HP.PTDCSUM ---
Discharge Summary D/C summary: It has been my pleasure to treat MARVIN MARIANO referred by Dr. Pepe Garcia MD, with the diagnosis of L Impingement Syndrome for a total of 5 visit(s). Discharge Date: 08/10/24 Please see the following information for a summary of their discharge status. Subjective Subjective: Patient reports she reached for something behind her in the car and had sharp pain in her anterior shoulder. Does not feel therapy has been helpful, plans to call Dr about getting a MRI. Pain L shoulder pain: Pain Intensity (Out of 10): 0 Objective Objective/Function: Patient plans to call the Dr tomorrow about lack of improvement and trying to get a MRI scheduled. Progressed a few exercises to HEP wiht pics. Goals Goal 1:: I HEP Goal 2:: Full shoulder flexion and abd with no pain Goal 3:: Sit with more upright posture during treatment sessions Plan Plan: DC PT 2X/ week for 4-6 weeks for AAROM, scapular and RC strength, postural exercises with HEP D/C Information Discharge Comments: DC PT d/c sentence: If there are questions or concerns regarding this patient's physical therapy, please feel free to call me at [phone]. Thank you for the referral of this patient. Sincerely, Shy Miller, MPT Balance/Gait/Functional tests Balance/Special Test Scores Quick DASH Score: 11.3628
== END 2024-06-28 19:00 | disposition home or self-care (01) ==
LOC: PT 17:30
PROVIDERS: PCP Family Medicine; Referring Provider Orthopaedic Surgery Sports Medicine; Visit Provider Orthopaedic Surgery Sports Medicine
DX: M75.42 Impingement syndrome of left shoulder (principal)
CPT/HCPCS: 97110; 97161

== ENCOUNTER → 2024-07-28 | Outpatient (CLI) | payer BC, SELFPAY ==
--- NOTE | 2024-07-28 16:17 | MRI_ITS ---
EXAM: MR LEFT UPPER EXTREMITY WITHOUT INTRAVENOUS CONTRAST, SHOULDER CLINICAL INDICATION: pain TECHNIQUE: Multiplanar and multisequence MR images of the left shoulder without intravenous contrast. COMPARISON: July 27, 2022 FINDINGS: TENDONS: SUPRASPINATUS: Low to moderate grade partial-thickness articular sided tearing of the anterior fibers of supraspinatus tendon with failure at the footprint. INFRASPINATUS: Unremarkable. Intact. SUBSCAPULARIS: Unremarkable. Intact. TERES MINOR: Unremarkable. Intact. BICEPS BRACHII, LONG HEAD: Unremarkable. The extra-articular biceps tendon is in the bicipital groove. The intra-articular biceps tendon is normal. LIGAMENTS: GLENOHUMERAL: Unremarkable. Intact. MUSCLES: Unremarkable. No rotator cuff muscle atrophy. FLUID: Small amount of fluid in the subacromial subdeltoid is compatible with bursitis. No joint effusion. CARTILAGE: Unremarkable. Articular cartilage intact. GLENOID LABRUM: Unremarkable. Intact, limited evaluation on non-arthrographic exam. BONES/JOINTS: Moderate hypertrophic degenerative changes acromioclavicular joint. Type I acromion with flat undersurface. No subacromial enthesophyte or os acromiale. No fracture. No abnormal bone marrow signal. OTHER SOFT TISSUES: Unremarkable. No rotator interval edema. MRI/Upper Ext Joint Only(Routine) IMPRESSION: Low to moderate grade partial-thickness articular sided tearing of the anterior fibers of supraspinatus tendon with failure at the footprint. Subacromial/subdeltoid bursitis. Low-grade partial-thickness tearing involving the supraspinatus tendon. Electronically Signed: Vikram Drew MD at 22:50 EDT ,
== END | disposition home or self-care (01) ==
LOC: MRI 15:18
PROVIDERS: PCP Family Medicine; Referring Provider Orthopaedic Surgery Sports Medicine; Visit Provider Orthopaedic Surgery Sports Medicine
DX: M75.42 Impingement syndrome of left shoulder (principal)
CPT/HCPCS: 73221

== ENCOUNTER → 2024-08-16 | Outpatient (CLI) | payer BC, SELFPAY | END | disposition home or self-care (01) | PROVIDERS: PCP Family Medicine; Referring Provider Family Medicine; Visit Provider Family Medicine | DX: Z00.00 Encounter for general adult medical examination without abnormal findings (principal) ==

== ENCOUNTER → 2024-08-17 | Outpatient (CLI) | payer BC, SELFPAY ==
--- NOTE | 2024-08-16 14:54 | LES_PTH ---
PATIENT: MARVIN MARIANO LOC: [facility] U#:[id number] AGE/SX: 54/F ROOM: RE08/17/[address]: Dr. Dirk Hayes MD : 1970 BED: DIS: 08/17/2024 SPEC #: [id number] RECD: 08/17/24 10:01 STATUS: HARI RYAN #: [id number] JOSE: 08/16/24 14:[address]: Dirk Hayes DEPT: SURGICAL PATHOLOGY RECD BY: Clarice Eng Tissues: Skin of leg, NOS Procedures: Surgery Specimen Level IV HEADER OPERATION: Neoplasm of right inner calf PRE-OP DIAGNOSIS: Right inner calf TISSUE SUBMITTED: Punch biopsy - 4mm MICROSCOPIC DIAGNOSIS Right inner calf lesion, punch biopsy: Suggestive of lentigo. Dermal fibrosis. Negative for malignancy. See comment. 08/18/2024 COMMENT Excision of the lesion is suggested, if clinically indicated. Case has been reviewed in consultation with Dr. Campbell who concurs with the above diagnosis. IDC:AM MICROSCOPIC DESCRIPTION Slides are reviewed. GROSS DESCRIPTION Received is one container labeled with the patient's name and not further designated. The specimen consists of a punch biopsy of santiago-white skin measuring 0.4 cm in diameter and 0.3 cm in length. The entire specimen is submitted in one cassette. 08/17/2024 TC:5 CPT:50351
== END | disposition home or self-care (01) ==
LOC: LABSPEC 09:47
PROVIDERS: PCP Family Medicine; Referring Provider Family Medicine; Visit Provider Family Medicine
DX: D49.9 Neoplasm of unspecified behavior of unspecified site (principal)
CPT/HCPCS: 88305

== ENCOUNTER → 2024-10-25 | Outpatient (CLI) | payer BC, SELFPAY ==
--- NOTE | 2024-10-25 09:11 | BI_ITS ---
MAMMOGRAPHY - BILATERAL SCREENING REASON FOR EXAM: Female, 54 years old. Routine annual screening examination. PERTINENT HISTORY: Mother with breast cancer. TECHNIQUE: Digital bilateral breast mo (3D mammographic acquisition) in the CC and MLO projections. 2-D mediolateral oblique (MLO) and craniocaudad (CC) views of both breasts were obtained. CAD: Full Field Digital Mammography with Computer Added Detection was performed. COMPARISON: Comparison is made with prior study of September 12, 2023 and July 16, 2022. FINDINGS: Breast Composition: The breasts are heterogeneously dense, which may obscure small masses. There are no dominant masses or suspicious calcifications. Stable 1.3 cm calcified nodule in the upper outer aspect of the left breast. No other significant abnormalities are identified. There has been no significant change since the prior study. BI/SCRN MAMM (CAD)W/MO BILAT IMPRESSION: Stable bilateral screening mammogram. Yearly follow-up mammogram recommended. (A) ASSESSMENT CATEGORY: BIRADS Category 2: Benign. A letter regarding these results will be sent to the patient by the facility within 30 days. Approximately 10% of breast cancers are not detected by mammography. A normal mammogram should not delay biopsy of a clinically suspicious abnormality. [id number] Electronically Signed: Yon Delacruz MD at 10:30 EST ,
== END | disposition home or self-care (01) ==
LOC: OPBI 09:10
PROVIDERS: PCP Family Medicine; Referring Provider Family Medicine; Visit Provider Family Medicine
DX: Z12.31 Encounter for screening mammogram for malignant neoplasm of breast (principal)
CPT/HCPCS: 77063; 77067

== ENCOUNTER → 2024-12-22 | Outpatient (CLI) | payer BC, SELFPAY ==
[2024-12-22 19:06] LABS: Anion Gap 12 (5-15); BUN 11 mg/dL (4-19); BUN/Creat Ratio 15.5 RATIO (10-20); Calcium,Total 9.6 mg/dL (7.6-11.0); Carbon Dioxide 22.7 mmol/L (21.0-32.0); Chloride 101 mmol/L (98-108); EST Glomerular Filtration Rate 104 (>60); Glucose 73 mg/dL (70-99); Magnesium 2.1 mg/dL (1.5-2.2); Sodium Level 136 mmol/L (133-145)
== END | disposition home or self-care (01) ==
LOC: MFPLAB 16:50
PROVIDERS: PCP Family Medicine; Referring Provider Family Medicine; Visit Provider Family Medicine
DX: E87.6 Hypokalemia (principal)
CPT/HCPCS: 36415; 80048; 83735

== ENCOUNTER → 2025-06-15 | Outpatient (CLI) | payer BC, SELFPAY ==
--- OUTSIDE RECORDS SUMMARY | 2025-06-15 06:59 | XMS RPT_ITS | CCD ---
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 [address] [place] [address] Result Comment: Vanna mated Glomerular Filtration Rate (eGFR) is calculated using the 2020 CKD-EPI creatinine equation. This equation utilizes serum creatinine, sex, and age as parameters. The creatinine assay has traceable calibration to isotope dilution-mass spectrometry. Refer to KDIGO guidelines for clinical interpretation. In patients with unstable renal function, e.g. those with acute kidney injury, the eGFR may not accurately reflect actual GFR. Performed By: #### 2 4321-2 #### [facility] CLIA [id number] [address] [place] [address] [place] Glucose [Mass/Vol] 73 mg/dL Low 74-99 [facility] Comment on above: Order Comment: Codie waldron Type: BLOOD SPECIMEN Ordering Facility: [facility] Address: [address] [place] [address] Result Comment: The [place] Diabetes [employer] (ADA) provides guidance for cutoff values for fasting glucose and random glucose. The ADA defines fasting as no caloric intake for at least 8 hours. Fasting plasma glucose results between 100 to 125 mg/dL indicate increased risk for diabetes (prediabetes). Fasting plasma glucose results greater than or equal to 126 mg/dL meet the criteria for diagnosis of diabetes. In the absence of unequivocal hyperglycemia, results should be confirmed by repeat testing. In a patient with classic symptoms of hyperglycemia or hyperglycemic crisis, random plasma glucose results greater than or equal to 200 mg/dL meet the criteria for diagnosis of diabetes. Reference: Standards of Medical Care in Diabetes 2016, [place] [employer] Association. Diabetes Care. 2016.39(Suppl 1). Performed By: #### 2 4321-2 #### [facility] CLIA [id number] [address] [place] [address] [place] Potassium [Moles/Vol] 4.4 mmol/L Normal 3.7-5.1 [facility] Comment on above: Order Comment: Codie waldron Type: BLOOD SPECIMEN Ordering Facility: [facility] Address: [address] [place] [address] Performed By: #### 2 4321-2 #### [facility] CLIA [id number] [address] [place] [address] [place] Sodium [Moles/Vol] 137 mmol/L Normal 136-144 [facility] Comment on above: Order Comment: Codie waldron Type: BLOOD SPECIMEN Ordering Facility: [facility] Address: [address] [place] [address] Performed By: #### 2 4321-2 #### [facility] CLIA [id number] [address] [place] [address] [place] Urea nitrogen [Mass/Vol] 9 mg/dL Normal 7-21 [facility] Comment on above: Order Comment: Codie waldron Type: BLOOD SPECIMEN Ordering Facility: [facility] Address: [address] [place] [address] Performed By: #### 2 4321-2 #### [facility] CLIA [id number] [address] [place] [address] OF [place]ET Pedro 03-21-2025 JIMY Telephone (OTFGFL) MARVIN MARIANO ([id number]) 1970 F Date Time Provider Department 03/21/25 CIPRIANO WONG OTFGFL During your visit today, we recorded the following information about you: Faizan Zheng MA 03/21/2025 9:24 AM Signed Patient called in stating that she has been having cramping in her legs since increasing her spironolactone medication, she is not sure if her potassium is dropping, she states she has noticed a little improvement with the Meniere's but not much. ASHLEY Ocampo Bruce M, MD 03/21/2025 11:24 AM Signed She may drop back to the 75 mg spironolactone daily. I ordered a BMP so that we can check to see if her potassium is low. Ideally she can get that before she drops the spironolactone dose. Faizan Zheng MA 03/21/2025 11:29 AM Signed Relayed message to patient. She voiced verbal understanding and had no further questions or concerns at this time. ASHLEY Ocampo Nancy 03/22/2025 9:02 AM Signed March 22, 2025 9:00 AM Patient advised that BMP is within normal results. Patient will continue higher dose of rx for another week as her Meniere's symptoms are improving at higher dose. Then she will try to reduce rx doseage and see how she does and if leg cramping continues or comes back She will call and update us in one week Velma Moore Allergies As of Date: 03/21/2025 Noted Allergy Reaction BUPROPION HCL 12/22/2018 9 - Itching Date Reviewed: 03/02/2025 Reviewed by: Cipriano Wong MD - Fully Assessed Reason for Visit: Patient Update [1234] Visit Diagnosis:Hypokalemia [E87.6] Order(s):BASIC METABOLIC PANEL [SQBMP] Order #: [id number] FUTURE Prescriptions as of 03/22/2025 - spironolactone (ALDACTONE) 50 mg tablet Take 1.5 tablets by mouth once daily. - zolpidem (AMBIEN) 5 mg tablet - potassium chloride 20 mEq TbER - meclizine (ANTIVERT) 25 mg tab - ALLERGY RELIEF D-24HR 10-240 mg Tb24 Take 1 tablet by mouth every afternoon. Problem List As Of Date 03/21/2025 Noted Resolved Meniere's disease, right [H81.01] 04/26/2023 Encounter Status:Closed by FAIZAN ZHENG on 03/21/25 [facility] Orthopedic Visit Reporton Orthopedic Visit Report [facility] [address] [place] [address] [address] [place] [address] OFFICE VISIT Date of Service: 03/03/25 MR#: [id number] Acct: [id number] Name: MARVIN MARIANO Rep #: [id number] : 1970 Provider: Dr. Pepe chinchilla MD Age/Sex: 55/F Location: [facility] Status: Signed with Addenda ADDENDUM by ASHLEY Ortiz on 03/03/25 at 1137 Office Procedure Documentation entered by Tess Ortiz MA 03/03/25 11:37: Ortho Injections Injections Yes Subacromial Injection Left Is this a patient provided medication?: No Details: Obtained consent for injection. Under sterile conditions, injected the patients left shoulder with 2cc Kenalog, and 4cc Bupivacaine. The patient tolerated the injection well without any noted complication. Patient should call our office if redness develops, pain worsens or if they have any concerns. Office Meds Kenalog 40 mg/mL suspension for injection Performing Provider: Pepe Garcia MD Performing Location: [facility] Administered by: Pepe Garcia MD on 03/03/25 11:35 Dose Route Admin Location Dispensed Lot Number Expiration Date NDC Man ufacturer 40 mg intra-articular Left Shoulder 1 mL [id number] 05/06/27 1247-4256-83 [facility] Date cc: * Signed Intake Vital Signs 01/06/24 13:01 Height 5 ft 6 in Intake Visit Reasons: LEFT SHOULDER Chief Complaint: left shoulder Accompanied by: Self Is patient in pain?: Yes (aching pain) Pain scale (1-10): 4 Allergies bupropion (From Wellbutrin) Allergy (Mild, Verified 03/03/25 10:57) Itching Medications ???Medication ???Instructions ???Recorded ???Confirmed ???Type fluticasone propionate 50 gm intranasal 05/24/22 03/03/25 Hi story mcg/actuation nasal spray,suspension prednisone 10 mg tablet 10 mg PO UD #33 tabs 01/06/2402/04 Rx zolpidem 5 mg tablet 5 mg PO DAILY Insomnia 05/20/24 History potassium chloride 20 mEq 20 meq PO ONCE Hypokalemia 4 03/03/25 History tablet,extended release 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 0 03/03/25 03/03/25 History PFSH Medical History Left rotator cuff tear FH: cholecystectomy IBS (irritable bowel syndrome) Gallstones History of back problems Seasonal allergies Surgical History History of lumbar surgery Hx of section History of hysterectomy Family History Mother Breast cancer Arthritis Depression Hypertension High cholesterol Social History Smoking Status: Former smoker alcohol intake: never substance use type: does not use HPI LEFT SHOULDER Details: This documentation accurately reflects the service provided and the decisions made by me, Dr. Pepe Garcia MD 03/03/25 0894. Part of today???s visit was documented by [ ], acting as scribe. MARVIN MARIANO is a 55 year old F here today for follow-up left shoulder pain and rotator cuff tear had a cortisone injection 6 months ago. 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 Coding Level of Care Code Attention Piotr Diagnoses Left rotator cuff tear M75.102 Impingement syndrome, shoulder, left M75.42 Comment 63877 and CPT inject major joint Assessment and Plan Assessment and Plan (1) Left rotator cuff tear: Status: Acute Plan: MARVIN MARIANO is a 55 year old F here today for follow-up left shoulder pain and rotator cuff tear had a cortisone injection 6 months ago. MRI shows Low to moderate grade partial-thickness articular sided tearing of the anterior fibers of supraspinatus tendon with failure at the footprint. Patient does not want go ahead with surgery but would like to delay that until July asked the patient to see me about 2 months prior to when they want to go ahead with surgery. In the meantime wishes to proceed with a repeat injection. Pros and cons risks and benefits of left shoulder subacromial steroid injection were discussed. Patient wished to proceed. Risks include but not limited to infection, pain, stiffness, damage to other structures, neurovascular injury, wear further tear of the tendon and other structures such as the skin, bleeding, allergic reaction, acute flare reaction and other risks. Obtained informed consent for injection. Posterior lateral aspect of the shoulder was prepped with chlorhexidine solution allowed to thoroughly dry over 3 minutes. Used [employer] (more content not included)... Normal [facility] CNOVon 03-02-2025 CNOV Office Visit (OTFGFL ) MARVIN MARIANO ([id number]) 1970 F Date Time Provider Department 03/02/25 3:00 PM JULIEN BECERRA OTFGFL During your visit today, we recorded the following information about you: Julien Becerra, AUD 03/02/2025 3:20 PM Signed [facility] March 02, 2025 Marvin Mariano was seen today for audiometric testing as part of her appointment today with Dr. Wong. The patient reports she is having a flareup of her Meniere's disease with decreased hearing and pressure in the right ear. Previous audiometric testing was completed on 10/14/2024 PHYSICAL EXAMINATION: Otoscopic inspection revealed ear canals free of cerumen bilaterally TEST RESULTS: Audiometric testing revealed decreased right pure-tone thresholds at 250Hz through 1000Hz and at 4000Hz since previous testing. Left ear pure-tone thresholds are stable. Mild sensorineural hearing loss in the left ear at 6000 Hz, and a moderate sensorineural hearing loss in the right ear at 250 Hz and 500Hz rising to normal hearing at 1000Hz and above. Speech jewelry internship thresholds agree with pure tone thresholds bilaterally. Speech discrimination testing revealed excellent speech understanding ability bilaterally. Tympanometry revealed normal tympanic membrane mobility and middle ear pressure bilaterally. AUDIOGRAM MAY BE VIEWED IN PROCEDURES RECOMMENDATIONS/PLAN: Dr. Wong will review audiometric test results with the patient. Julien Becerra, FILEMON Allergies As of Date: 03/02/2025 Noted Allergy Reaction BUPROPION HCL 12/22/2018 9 - Itching Date Reviewed: 03/02/2025 Reviewed by: Cipriano Wong MD - Fully Assessed Reason for Visit: Ear Pain [817] Pressure In Ear(s) [1122] Hearing Loss [1119] Vertigo [3853] Primary Visit Diagnosis:Asymmetrical sensorineural hearing loss [H90.3] Other Visit Diagnosis:Meniere's disease, right [H81.01] Order(s):HEARING TEST/AUDIOGRAM [2409952] Order #: [id number]: 1 Prescriptions as of 03/02/2025 - spironolactone (ALDACTONE) 50 mg tablet Take 1.5 tablets by mouth once daily. - zolpidem (AMBIEN) 5 mg tablet - potassium chloride 20 mEq TbER - meclizine (ANTIVERT) 25 mg tab - ALLERGY RELIEF D-24HR 10-240 mg Tb24 Take 1 tablet by mouth every afternoon. Problem List As Of Date 03/02/2025 Noted Resolved Meniere's disease, right [H81.01] 04/26/2023 Encounter Status:Closed by JULIEN BECERRA on 03/02/25 [facility] CNOV Office Visit (OTFGFL ) MARVIN MARIANO ([id number]) 1970 F Date Time Provider Department 03/02/25 1:45 PM CIPRIANO WONG OTFGFL During your visit today, we recorded the following information about you: Pulse Respiration Blood pressure Weight 84/minute 16/minute 118/70 78.9 kg Height 1.676 m Cipriano Wong MD 03/02/2025 3:28 PM Signed Try spironolactone 100 mg a day for 1 week or 2. If this is not helpful go back to the 75 mg a day. Let us know either way. Cipriano Wong MD 03/13/2025 5:21 PM Signed [place]TH[place]AY: Marvin Mariano is a 55 year old, White, female who returns, I am here about my right ear. She has a history of a right cochlear hydrops. She was doing well with spironolactone 75 mg/day. Then she got vertigo in December for a few days and again 2 weeks ago. The prednisone and meclizine that was ordered helped. She has right ear pressure/pain that goes down into the neck for the last 2 weeks. Her right hearing gets worse with the pain. Her right tinnitus is stable. Ibuprofen helps if she has a headache. Claritin-D is not helping. SUBJECTIVE: I reviewed the allergies, medications, problem list, PMH/PSH, FmHx and SocHx as documented in Epic chart. PHYSICAL EXAM: VS: height is 167.6 cm (5' 6) and weight is 78.9 kg (174 lb). Her blood pressure is 118/70 and her pulse is 84. Her respiration is 16. H/F/N: The facial motion is overall normal. There are no palpable salivary gland, thyroid or neck masses. Ears: The external ears and canals are without lesions. Each TM is intact and mobile on pneumatic otoscopy. There is slight tenderness in the right mastoid area. OBJECTIVE: I reviewed with the patient that the audiogram done today shows the right low-frequency hearing has dropped since October and is now moderate SNHL. It then goes up to meet the left in the normal range. Word scores 100. The tympanograms have normal peaks. ASSESSMENT AND PLAN: I counseled the patient about the differential diagnosis, natural course, treatment options and answered their questions for all diagnoses and orders: 1. Meniere's disease, right - ICD9: 386.00, ICD10: H81.01 2. Otalgia, right - ICD9: 388.70, ICD10: H92.01 3. Ear pressure, right - ICD9: 388.8, ICD10: H93.8X1 4. Tinnitus, right - ICD9: 388.30, ICD10: H93.11 5. Sensorineural hearing loss (SNHL) of right ear with unrestricted hearing of left ear - ICD9: 389.15, ICD10: H90.41 She was counseled that now that she has some dizziness as well she has cochleovestibular hydrops which is Meniere's disease. She was counseled to increase her spironolactone to 100 mg a day for a week or 2 and see if that helps her symptoms. If it does not help, she may go back to 75 mg a day. She was counseled to let us know either way. Return in about 3 months (around 06/16/2025) for Ears. Cipriano Wong MD 35 minutes Total time including preparation, obtaining/reviewing history, exam, interpreting results, ordering, counseling/education, referring/communicatin g and documentation. Created using voice recognition software, some errors may have occurred. Corrections may be performed at a later date. Allergies As of Date: 03/02/2025 Noted Allergy Reaction BUPROPION HCL 12/22/2018 9 - Itching Date Reviewed: 03/02/2025 Reviewed by: Cipriano Wong MD - Fully Assessed Reason for Visit: Follow Up [171] Cmt: Right ear, pressure, pain in mastoid, jaw and down neck Visit Diagnoses:Meniere's disease, right [H81.01] Otalgia, right [H92.01] Ear pressure, right [H93.8X1] Tinnitus, right [H93.11] Sensorineural hearing loss (SNHL) of right ear with unrestricted hearing of left ear [H90.41] Prescriptions as of 03/13/2025 - spironolactone (ALDACTONE) 50 mg tablet Take 1.5 tablets by mouth once daily. - zolpidem (AMBIEN) 5 mg tablet - potassium chloride 20 mEq TbER - meclizine (ANTIVERT) 25 mg tab - ALLERGY RELIEF D-24HR 10-240 mg Tb24 Take 1 tablet by mouth every afternoon. Problem List As Of Date 03/02/2025 Noted Resolved Meniere's disease, right [H81.01] 04/26/2023 Other instructions from your clinician: Try spironolactone 100 mg a day for 1 week or 2. If this is not helpful go back to the 75 mg a day. Let us know either way. Medications Discontinued During This Encounter Prescriptions - Sodium Fluoride-Pot Nitrate 1.1-5 % (Discontinued) as directed. - predniSONE (DELTASONE) 20 mg tablet (Discontinued) Take 3 tablets by mouth once daily as needed. Disposition: Return in about 3 months (around 06/16/2025) for Ears. Follow-up and Disposition History for Encounter Date Provider Department Center 03/02/2025 [id number] WONG [facility] Encounter Status:Closed by CIPRIANO WONG on 03/13/25 [facility] HEARING TEST/AUDIOGRAMon TEST RESULTS: Audiometric testing revealed decreased right pure-tone thresholds at 250Hz through 1000Hz and at 4000Hz since previous testing. Left ear pure-tone thresholds are stable. Mild sensorineural hearing loss in the left ear at 6000 Hz, and a moderate sensorineural hearing loss in the right ear at 250 Hz and 500Hz rising to normal hearing at 1000Hz and above. Speech jewelry internship thresholds agree with pure tone thresholds bilaterally. Speech discrimination testing revealed excellent speech understanding ability bilaterally. Tympanometry revealed normal tympanic membrane mobility and middle ear pressure bilaterally. [facility] Pedro 02-18-2025 [facility] MARVIN MARIANO ([id number]) 1970 F Date Time Provider Department 02/18/25 CIPRIANO WONG OTFGFL During your visit today, we recorded the following information about you: Rosaura Topete MA 02/18/2025 9:26 AM Signed Pt called and LM on my VM stating her Meniere's and vertigo has been acting up recently. She does not have an appt with you until June. She would like to come in sooner but wondered if she will need an audiogram prior to the visit? ASHLEY Jimenez Jill, MA 02/18/2025 9:56 AM Signed Called and told Marvin that Dr Wong said he could send in a prescription for Prednisone, if she would like to try that. Pt stated she is okay with this. Pharmacy is [facility] in [place]. Marvin also wanted you to know that since December, she has had two bouts of vertigo. Normally she takes spironolactone 75mg but last week, for a couple days, she took 100mg. It helped but did not keep the vertigo at bay. ASHLEY Jimenez Bruce M, MD 02/18/2025 10:07 AM Signed Noted. Prednisone 20 mg #30, 3 every morning with food, NRF prescription sent. Allergies As of Date: 02/18/2025 Noted Allergy Reaction BUPROPION HCL 12/22/2018 9 - Itching Date Reviewed: 12/16/2024 Reviewed by: Cipriano Wong MD - Fully Assessed Reason for Visit: Patient Question [4767] Order(s):predniSONE (DELTASONE) 20 mg tabletTake 3 tablets by mouth once daily as needed.Disp: 30 tabletRfl: 0 Prescriptions as of 02/18/2025 - predniSONE (DELTASONE) 20 mg tablet Take 3 tablets by mouth once daily as needed. - spironolactone (ALDACTONE) 50 mg tablet Take 1.5 tablets by mouth once daily. - zolpidem (AMBIEN) 5 mg tablet - Sodium Fluoride-Pot Nitrate 1.1-5 % as directed. - potassium chloride 20 mEq TbER - meclizine (ANTIVERT) 25 mg tab - ALLERGY RELIEF D-24HR 10-240 mg Tb24 Take 1 tablet by mouth every afternoon. Problem List As Of Date 02/18/2025 Noted Resolved Cochlear hydrops of right ear [H81.01] 04/26/2023 Prescriptions ordered this encounter Disp Refills Start End PREDNISONE 20 MG TABLET 30 t* 0 02/18/2025 Route: ORAL Sig: Take 3 tablets by mouth once daily as needed. Medications Discontinued During This Encounter Prescriptions - methylPREDNISolone (METHYLPRED DP) 4 mg Dose-Pack (Discontinued) Encounter Status:Closed by CIPRIANO WONG on 02/18/25 [facility] 02-09-2025 [facility] Telephone (OTFGFL) MARVIN MARIANO ([id number]) 1970 F Date Time Provider Department 02/09/25 [facility]ONG [facility] During your visit today, we recorded the following information about you: Velma Moore 02/09/2025 8:16 AM Signed February 09, 2025 8:12 AM Needs refill on Spiralactone Patient does take 1 1/2 pills per dose--since October as prescribed Last refill only lasted 45 days Last refill was not ordered as 1 1/2 per day Pharmacy [facility]. Please call patient and advise. Also started flare of Meneires and did start on meclizinex one day. And predisone also Cipriano Che MD 02/09/2025 9:17 AM Signed Spironolactone refill sent. Allergies As of Date: 02/09/2025 Noted Allergy Reaction BUPROPION HCL 12/22/2018 9 - Itching Date Reviewed: 12/16/2024 Reviewed by: Cipriano Wong MD - Fully Assessed Order(s):spironolacton e (ALDACTONE) 50 mg tabletTake 1.5 tablets by mouth once daily.Disp: 130 tabletRfl: 1 Prescriptions as of 02/09/2025 - spironolactone (ALDACTONE) 50 mg tablet Take 1.5 tablets by mouth once daily. - zolpidem (AMBIEN) 5 mg tablet - Sodium Fluoride-Pot Nitrate 1.1-5 % as directed. - potassium chloride 20 mEq TbER - methylPREDNISolone (METHYLPRED DP) 4 mg Dose-Pack - meclizine (ANTIVERT) 25 mg tab - ALLERGY RELIEF D-24HR 10-240 mg Tb24 Take 1 tablet by mouth every afternoon. Problem List As Of Date 02/09/2025 Noted Resolved Cochlear hydrops of right ear [H81.01] 04/26/2023 Prescriptions ordered this encounter Disp Refills Start End SPIRONOLACTONE 50 MG TABLET 130 * 1 02/09/2025 Route: ORAL Sig: Take 1.5 tablets by mouth once daily. Medications Discontinued During This Encounter Prescriptions - spironolactone (ALDACTONE) 50 mg tablet (Discontinued) Take 1 tablet by mouth once daily. Encounter Status:Closed by CIPRIANO WONG on 02/09/25 [facility] Anion gap in Serum or Plasma Ordered By: Dirk Delgado on 12-22-2024 Anion gap [Moles/Vol] 12 mmol/L 02-17 [facility] BUN/creatinine ratioOrdered By: Dirk Delgado on 12-22-2024 Urea nitrogen/Creatinine [Mass ratio] 15.5 mg/mg 07-25 [facility] Basic Metabolic Profile (BMP )on 12-22-2024 BUN/CRE 15.5 RATIO Normal - [facility] Comment on above: Performed By: #### L 501.5200, L500.2500 #### [facility] [address] [place], [address] Calcium [Mass/Vol] 9.6 mg/dL Normal 7.6-11.0 [facility] Comment on above: Performed By: #### L 501.5200, L500.2500 #### [facility] [address] [place], [address] Chloride [Moles/Vol] 101 mmol/L Normal 98-108 [facility] Comment on above: Performed By: #### L 501.5200, L500.2500 #### [facility] [address] [place], [address] CO2 [Moles/Vol] 22.7 mmol/L Normal 21.0-32.0 [facility] Comment on above: Performed By: #### L 501.5200, L500.2500 #### [facility] [address] [place], [address] Creatinine [Mass/Vol] 0.70 mg/dL Normal 0.70-1.20 [facility] Comment on above: Performed By: #### L 501.5200, L500.2500 #### [facility] [address] [place], [address] GAP 12 Normal 5-15 [facility] Comment on above: Performed By: #### L 501.5200, L500.2500 #### [facility] [address] [place], [address] GFR/1.73 sq M.predicted among non-blacks MDRD (S/P/Bld) [Vol rate/Area] 104 mL/min/{1.73_m2} Normal >60 [facility] Comment on above: Result Comment: mL/m in/1.73m2 CKD-EPI Creatinine Equation (2020) Performed By: #### L 501.5200, L500.2500 #### [facility] [address] [place], [address] Glucose [Mass/Vol] 73 mg/dL Normal 70-99 [facility] Comment on above: Performed By: #### L 501.5200, L500.2500 #### [facility] [address] [place], [address] Potassium [Moles/Vol] 4.0 mmol/L Normal 3.3-5.1 [facility] Comment on above: Performed By: #### L 501.5200, L500.2500 #### [facility] [address] [place], [address] Sodium [Moles/Vol] 136 mmol/L Normal 133-145 [facility] Comment on above: Performed By: #### L 501.5200, L500.2500 #### [facility] [address] [place], [address] Urea nitrogen [Mass/Vol] 11 mg/dL Normal 4-19 [facility] Comment on above: Performed By: #### L 501.5200, L500.2500 #### [facility] [address] [place], [address] Carbon dioxide, total [Moles /volume] in Central venous bloodOrdered By: Dirk Delgado on 12-22-2024 CO2 [Moles/Vol] 22.7 mmol/L 21.0-32.0 [facility] Chloride assayOrdered By: Rnaulfo Delgado on 12-22-2024 Chloride [Moles/Vol] 101 mmol/L 98-108 [facility] GFR/1.73 sq M.predicted felix g non-blacks MDRD (S/P/Bld) [Vol rate/Area]Ordered By: Dirk Delgado on 12-22-2024 Estimated GFR (MDRD) Non-Af Amer 104 >60 [facility] Comment on above: mL/min/1.73m2 CKD-EP I Creatinine Equation (2020) Glomerular filtration rate ( GFR) estimation/1.73 sq m using serum, plasma, or whole bOrdered By: Dirk Delgado on 12-22-2024 GFR/1.73 sq M.predicted among non-blacks MDRD (S/P/Bld) [Vol rate/Area] 104 mL/min/{1.73_m2} >60 [facility] Comment on above: mL/min/1.73m2 CKD-EP I Creatinine Equation (2020) Magnesiumon 12-22-2024 Magnesium [Mass/Vol] 2.1 mg/dL Normal 1.5-2.2 [facility] Comment on above: Performed By: #### L 501.5200, L500.2500 #### [facility] [address] [place], [address] Magnesium (Unsp spec) [Mass/ Vol]Ordered By: Dirk Delgado on 12-22-2024 Magnesium [Mass/Vol] 2.1 mg/dL 1.5-2.2 [facility] Magnesium measurement (mass/ volume)Ordered By: Dirk Delgado on 12-22-2024 Magnesium (Unsp spec) [Mass/Vol] 2.1 mg/dL 1.5-2.2 [facility] Potassium (Unsp spec) [Mass/ Vol]Ordered By: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 send in a prescription for this and told her about getting the blood work done too. I also told her he did not refill the prednisone because since it wasn't really helping he wanted to see if the increase in dose of the Spironolactone might help. Pt stated she understood. Rosaura Topete MA Allergies As of Date: 10/18/2024 Noted Allergy Reaction BUPROPION HCL 12/22/2018 9 - Itching Date Reviewed: 10/14/2024 Reviewed by: Cipriano Wong MD - Fully Assessed Reason for Visit: Results, Lab [1201] Visit Diagnoses:Cochlear hydrops of right ear [H81.01] Hypokalemia [E87.6] Order(s):BASIC METABOLIC PANEL [SQBMP] Order #: [id number] FUTURE spironolactone (ALDACTONE) 50 mg tabletTake 1.5 tablets by mouth once daily.Disp: 45 tabletRfl: 1 Prescriptions as of 10/18/2024 - spironolactone (ALDACTONE) 50 mg tablet Take 1.5 tablets by mouth once daily. - zolpidem (AMBIEN) 5 mg tablet - Sodium Fluoride-Pot Nitrate 1.1-5 % as directed. - potassium chloride 20 mEq TbER - methylPREDNISolone (METHYLPRED DP) 4 mg Dose-Pack - meclizine (ANTIVERT) 25 mg tab - ALLERGY RELIEF D-24HR 10-240 mg Tb24 Take 1 tablet by mouth every afternoon. Problem List As Of Date: 10/18/2024 (None) Prescriptions ordered this encounter Disp Refills Start End SPIRONOLACTONE 50 MG TABLET 45 t* 1 10/18/2024 Route: ORAL Sig: Take 1.5 tablets by mouth once daily. Medications Discontinued During This Encounter Prescriptions - spironolactone (ALDACTONE) 50 mg tablet (Discontinued) TAKE 1 TABLET BY MOUTH EVERY DAY Encounter Status:Closed by ROSAURA TOPETE on 10/18/24 Normal [facility] Basic metabolic 2000 panelon 10-16-2024 Anion gap [Moles/Vol] 14 mmol/L 8 - 15 mmol/L [facility] Calcium [Mass/Vol] 10.2 mg/dL 8.5 - 10. 2 mg/dL [facility] Chloride [Moles/Vol] 101 mmol/L 98 - 10 7 mmol/L [facility] CO2 [Moles/Vol] 27 mmol/L 22 - 30 mmol/L [facility] Creatinine [Mass/Vol] 0.82 mg/dL 0.58 - 0.96 mg/dL [facility] GFR/1.73 sq M.predicted among non-blacks MDRD (S/P/Bld) [Vol rate/Area] 86 mL/min/{1.73_m2} - PINF [facility] Comment on above: Estimated Glomerular Filtration Rate (eGFR) is calculated using the 2020 CKD-EPI creatinine equation. This equation utilizes serum creatinine, sex, and age as parameters. The creatinine assay has traceable calibration to isotope dilution-mass spectrometry. Refer to KDIGO guidelines for clinical interpretation. In patients with unstable renal function, e.g. those with acute kidney injury, the eGFR may not accurately reflect actual GFR. Glucose [Mass/Vol] 84 mg/dL 74 - 99 mg/dL [facility] Comment on above: The [place] Diab[employer] s Association (ADA) provides guidance for cutoff values for fasting glucose and random glucose. The ADA defines fasting as no caloric intake for at least 8 hours. Fasting plasma glucose results between 100 to 125 mg/dL indicate increased risk for diabetes (prediabetes). Fasting plasma glucose results greater than or equal to 126 mg/dL meet the criteria for diagnosis of diabetes. In the absence of unequivocal hyperglycemia, results should be confirmed by repeat testing. In a patient with classic symptoms of hyperglycemia or hyperglycemic crisis, random plasma glucose results greater than or equal to 200 mg/dL meet the criteria for diagnosis of diabetes. Reference: Standards of Medical Care in Diabetes 2016, [place] Diabetes Association. Diabetes Care. 2016.39(Suppl 1). Interpretation and review of laboratory results Normal [facility] Potassium [Moles/Vol] 4.0 mmol/L 3.7 - 5.1 mmol/L [facility] Sodium [Moles/Vol] 142 mmol/L 136 - 144 mmol/L [facility] Urea nitrogen [Mass/Vol] 11 mg/dL 7 - 21 mg/dL [facility] Anion gap [Moles/Vol] 14 mmol/L Normal 8-15 [facility] Comment on above: Order Comment: Speci men Type: BLOOD SPECIMEN Ordering Facility: [facility] Address: [address] [place] [address] Performed By: #### 2 4321-2 #### [facility] CLIA [id number] [address] [place] [address] [place] Calcium [Mass/Vol] 10.2 mg/dL Normal 8.5-10.2 [facility] Comment on above: Order Comment: Speci men Type: BLOOD SPECIMEN Ordering Facility: [facility] Address: [address] [place] [address] Performed By: #### 2 4321-2 #### [facility] CLIA [id number] [address] [place] [address] [place] Chloride [Moles/Vol] 101 mmol/L Normal 98-[address] [facility] Comment on above: Order Comment: Speci men Type: BLOOD SPECIMEN Ordering Facility: [facility] Address: [address] [place] [address] Performed By: #### 2 4321-2 #### [facility] CLIA [id number] [address] [place] [address] [place] CO2 [Moles/Vol] 27 mmol/L Normal 22-30 [facility] Comment on above: Order Comment: Speci men Type: BLOOD SPECIMEN Ordering Facility: [facility] Address: [address] [place] [address] Performed By: #### 2 4321-2 #### [facility] CLIA [id number] [address] [place] [address] [place] Creatinine [Mass/Vol] 0.82 mg/dL Normal 0.58-0.96 [facility] Comment on above: Order Comment: Codie waldron Type: BLOOD SPECIMEN Ordering Facility: [facility] Address: [address] [place] [address] Performed By: #### 2 4321-2 #### [facility] CLIA [id number] [address] [place] [address] [place] Creatinine and Glomerular filtration rate.predicted panel (S/P/Bld) 86 mL/min/1.73m??? Normal >=60 [facility] Comment on above: Order Comment: Codie waldron Type: BLOOD SPECIMEN Ordering Facility: [facility] Address: [address] [place] [address] Result Comment: Vanna mated Glomerular Filtration Rate (eGFR) is calculated using the 2020 CKD-EPI creatinine equation. This equation utilizes serum creatinine, sex, and age as parameters. The creatinine assay has traceable calibration to isotope dilution-mass spectrometry. Refer to KDIGO guidelines for clinical interpretation. In patients with unstable renal function, e.g. those with acute kidney injury, the eGFR may not accurately reflect actual GFR. Performed By: #### 2 4321-2 #### [facility] CLIA [id number] [address] [place] [address] [place] Glucose [Mass/Vol] 84 mg/dL Normal 74-99 [facility] Comment on above: Order Comment: Codie waldron Type: BLOOD SPECIMEN Ordering Facility: [facility] Address: [address] [place] [address] Result Comment: The [place] Diabetes Association (ADA) provides guidance for cutoff values for fasting glucose and random glucose. The ADA defines fasting as no caloric intake for at least 8 hours. Fasting plasma glucose results between 100 to 125 mg/dL indicate increased risk for diabetes (prediabetes). Fasting plasma glucose results greater than or equal to 126 mg/dL meet the criteria for diagnosis of diabetes. In the absence of unequivocal hyperglycemia, results should be confirmed by repeat testing. In a patient with classic symptoms of hyperglycemia or hyperglycemic crisis, random plasma glucose results greater than or equal to 200 mg/dL meet the criteria for diagnosis of diabetes. Reference: Standards of Medical Care in Diabetes 2016, [place] Diabetes Association. Diabetes Care. 2016.39(Suppl 1). Performed By: #### 2 4321-2 #### [facility] CLIA [id number] [address] [place] [address] [place] Potassium [Moles/Vol] 4.0 mmol/L Normal 3.7-5.1 [facility] Comment on above: Order Comment: Codie waldron Type: BLOOD SPECIMEN Ordering Facility: [facility] Address: [address] [place] [address] Performed By: #### 2 4321-2 #### [facility] CLIA [id number] [address] [place] [address] [place] Sodium [Moles/Vol] 142 mmol/L Normal 136-144 [facility] Comment on above: Order Comment: Codie waldron Type: BLOOD SPECIMEN Ordering Facility: [facility] Address: [address] [place] [address] Performed By: #### 2 4321-2 #### [facility] CLIA [id number] [address] [place] [address] [place] Urea nitrogen [Mass/Vol] 11 mg/dL Normal 7-21 [facility] Comment on above: Order Comment: Codie waldron Type: BLOOD SPECIMEN Ordering Facility: [facility] Address: [address] [place] [address] Performed By: #### 2 4321-2 #### [facility] CLIA [id number] [address] [place] [address] [place] CNOVon 10-14-2024 CNOV Office Visit (OTFGFL ) MARVIN MARIANO ([id number]) 1970 F Date Time Provider Department 10/14/24 3:45 PM CIPRIANO WONG [facility] During your visit today, we recorded the following information about you: Pulse Respiration Blood pressure Weight 99/minute 18/minute 127/82 79.8 kg Height 1.676 m Cipriano Wong MD 10/14/2024 4:35 PM Signed Finish the prednisone. Continue the spironolactone 50 mg daily. Get the lab work now. Cipriano Wong MD 10/24/2024 3:31 PM Signed [place]: Marvin Mariano is a 54 year old, White, female who returns, I am here about my right ear. She was doing well with the spironolactone 50 mg daily. 3 days ago she got right ear fullness, decreased hearing, high-frequency ringing tinnitus and headache. 2 days ago her PCP started her on 40 mg of prednisone for 5 days. She is not better yet. 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 SUBJECTIVE: I reviewed the allergies, medications, problem list, PMH/PSH, FmHx and SocHx as documented in Epic chart. PHYSICAL EXAM: VS: BP 127/82 Pulse 99 Resp 18 Ht 167.6 cm (5' 6) Wt 79.8 kg (176 lb) BMI 28.41 kg/m? H/F/N: The facial motion is overall normal. There are no palpable salivary gland, thyroid or neck masses. Ears: The external ears and canals are without lesions. Each TM is intact and mobile on pneumatic otoscopy. OBJECTIVE: I reviewed with the patient the audiogram and tympanograms done today. The left hearing is normal while the right has low-frequency mild SNHL with the middle and high frequencies normal. Word scores 100. The tympanograms have normal peaks. ASSESSMENT AND PLAN: I counseled the patient about the differential diagnosis, natural course, treatment options and answered their questions for all diagnoses and orders: 1. 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 Ear pressure, right - ICD9: 388.8, ICD10: H93.8X1 3. Sensorineural hearing loss (SNHL) of right ear with restricted hearing of left ear - ICD9: 389.22, ICD10: H90.A21 4. Hypokalemia - ICD9: 276.8, ICD10: E87.6 She was counseled to finish the prednisone. She was counseled to continue the spironolactone 50 mg daily. If her symptoms stay elevated we will consider an increase to 75 mg daily. We decided to do this instead of considering Diamox. She was counseled to get a BMP now so we can assess her kidney function on the spironolactone. Return in about 2 months (around 12/12/2024) for Ears. Cipriano Wong MD 35 minutes Total time including preparation, obtaining/reviewing history, exam, interpreting results, ordering, counseling/education, referring/communicatin g and documentation. Created using voice recognition software, some errors may have occurred. Corrections may be performed at a later date. Allergies As of Date: 10/14/2024 Noted Allergy Reaction BUPROPION HCL 12/22/2018 9 - Itching Date Reviewed: 10/14/2024 Reviewed by: Cipriano Wong MD - Fully Assessed Reason for Visit: Follow Up [171] Cmt: Right ear Visit Diagnoses:Cochlear hydrops of right ear [H81.01] Ear pressure, right [H93.8X1] Sensorineural hearing loss (SNHL) of right ear with restricted hearing of left ear [H90.A21] Hypokalemia [E87.6] Order(s):BASIC METABOLIC PANEL [SQBMP] Order #: [id number] FUTURE Prescriptions as of 10/24/2024 - spironolactone (ALDACTONE) 50 mg tablet Take 1.5 tablets by mouth once daily. - zolpidem (AMBIEN) 5 mg tablet - Sodium Fluoride-Pot Nitrate 1.1-5 % as directed. - potassium chloride 20 mEq TbER - methylPREDNISolone (METHYLPRED DP) 4 mg Dose-Pack - meclizine (ANTIVERT) 25 mg tab - ALLERGY RELIEF D-24HR 10-240 mg Tb24 Take 1 tablet by mouth every afternoon. Problem List As Of Date: 10/14/2024 (None) Other instructions from your clinician: Finish the prednisone. Continue the spironolactone 50 mg daily. Get the lab work now. Disposition: Return in about 2 months (around 12/12/2024) for Ears. 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 Wong. 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 She feels fullness and pressure in her right ear. PHYSICAL EXAMINATION: Otoscopic inspection revealed ear canals free of cerumen bilaterally TEST RESULTS: Audiometric testing revealed left pure tone thresholds within normal limits and a mild sensorineural hearing loss at 250Hz and 500Hz, rising to normal at 1000Hz and above in the right ear. Speech jewelry internship thresholds agree with pure tone thresholds bilaterally. Speech discrimination testing revealed excellent speech understanding ability bilaterally. Tympanometry revealed normal tympanic membrane mobility and middle ear pressure bilaterally. AUDIOGRAM MAY BE VIEWED IN PROCEDURES RECOMMENDATIONS/PLAN: Dr. Wong will review audiometric test results with the patient. FILEMON Webb Allergies As of Date: 10/14/2024 Noted Allergy Reaction BUPROPION HCL 12/22/2018 9 - Itching Date Reviewed: 10/14/2024 Reviewed by: Margaret Patrick MA - Fully Assessed Reason for Visit: Pressure In Ear(s) [1122] Fullness In Ear(s) [1117] Primary Visit Diagnosis:Sensorineura l hearing loss (SNHL) of right ear with unrestricted hearing of left ear [H90.41] Order(s):HEARING TEST/AUDIOGRAM [[id number]] Order #: [id number]: 1 Prescriptions as of 10/14/2024 - spironolactone (ALDACTONE) 50 mg tablet TAKE 1 TABLET BY MOUTH EVERY DAY - zolpidem (AMBIEN) 5 mg tablet - Sodium Fluoride-Pot Nitrate 1.1-5 % as directed. - potassium chloride 20 mEq TbER - methylPREDNISolone (METHYLPRED DP) 4 mg Dose-Pack - meclizine (ANTIVERT) 25 mg tab - ALLERGY RELIEF D-24HR 10-240 mg Tb24 Take 1 tablet by mouth every afternoon. Problem List As Of Date: 10/14/2024 (None) Encounter Status:Closed by JULIEN BECERRA on 10/14/24 Normal [facility] HEARING TEST/AUDIOGRAMon TEST RESULTS: Audiometric testing revealed left pure tone thresholds within normal limits and a mild sensorineural hearing loss at 250Hz and 500Hz, rising to normal at 1000Hz and above in the right ear. Speech jewelry internship thresholds agree with pure tone thresholds bilaterally. Speech discrimination testing revealed excellent speech understanding ability bilaterally. Tympanometry revealed normal tympanic membrane mobility and middle ear pressure bilaterally. [facility] Basic metabolic 2000 panelon 09-04-2024 Anion gap [Moles/Vol] 14 mmol/L Normal 8-15 [facility] Comment on above: Order Comment: Speci men Type: BLOOD SPECIMEN Ordering Facility: [facility] Address: [address] [place] [address] Performed By: #### 2 4321-2 #### [facility] CLIA [id number] [address] [place] [address] [place] [address] [place] Calcium [Mass/Vol] 9.9 mg/dL Normal 8.5-10.2 [facility] Comment on above: Order Comment: Speci men Type: BLOOD SPECIMEN Ordering Facility: [facility] Address: [address] [place] [address] Performed By: #### 2 4321-2 #### [facility] CLIA [id number] [address] [place] [address] [place] Chloride [Moles/Vol] 101 mmol/L Normal 98-[address] [facility] Comment on above: Order Comment: Speci men Type: BLOOD SPECIMEN Ordering Facility: [facility] Address: [address] [place] [address] Performed By: #### 2 4321-2 #### [facility] CLIA [id number] [address] [place] [address] [place] CO2 [Moles/Vol] 24 mmol/L Normal 22-30 [facility] Comment on above: Order Comment: Speci men Type: BLOOD SPECIMEN Ordering Facility: [facility] Address: [address] [place] [address] Performed By: #### 2 4321-2 #### [facility] CLIA [id number] [address] [place] [address] [place] Creatinine [Mass/Vol] 0.98 mg/dL High 0.58-0.96 [facility] Comment on above: Order Comment: Speci men Type: BLOOD SPECIMEN Ordering Facility: [facility] Address: [address] [place] [address] Performed By: #### 2 4321-2 #### [facility] CLIA [id number] [address] [place] [address] [place] Creatinine and Glomerular filtration rate.predicted panel (S/P/Bld) 70 mL/min/1.73m??? Normal >=60 [facility] Comment on above: Order Comment: Speci men Type: BLOOD SPECIMEN Ordering Facility: [facility] Address: [address] [place] [address] Result Comment: Vanna mated Glomerular Filtration Rate (eGFR) is calculated using the 2020 CKD-EPI creatinine equation. This equation utilizes serum creatinine, sex, and age as parameters. The creatinine assay has traceable calibration to isotope dilution-mass spectrometry. Refer to KDIGO guidelines for clinical interpretation. In patients with unstable renal function, e.g. those with acute kidney injury, the eGFR may not accurately reflect actual GFR. Performed By: #### 2 4321-2 #### [facility] CLIA [id number] [address] [place] [address] [place] Glucose [Mass/Vol] 77 mg/dL Normal 74-99 [facility] Comment on above: Order Comment: Codie waldron Type: BLOOD SPECIMEN Ordering Facility: [facility] Address: [address] [place] [address] Result Comment: The [place] Diabetes Association (ADA) provides guidance for cutoff values for fasting glucose and random glucose. The ADA defines fasting as no caloric intake for at least 8 hours. Fasting plasma glucose results between 100 to 125 mg/dL indicate increased risk for diabetes (prediabetes). Fasting plasma glucose results greater than or equal to 126 mg/dL meet the criteria for diagnosis of diabetes. In the absence of unequivocal hyperglycemia, results should be confirmed by repeat testing. In a patient with classic symptoms of hyperglycemia or hyperglycemic crisis, random plasma glucose results greater than or equal to 200 mg/dL meet the criteria for diagnosis of diabetes. Reference: Standards of Medical Care in Diabetes 2016, [place] [employer] Association. Diabetes Care. 2016.39(Suppl 1). Performed By: #### 2 4321-2 #### [facility] CLIA [id number] [address] [place] [address] [place] Potassium [Moles/Vol] 3.8 mmol/L Normal 3.7-5.1 [facility] Comment on above: Order Comment: Codie waldron Type: BLOOD SPECIMEN Ordering Facility: [facility] Address: [address] [place] [address] Performed By: #### 2 4321-2 #### [facility] CLIA [id number] [address] [place] [address] [place] Sodium [Moles/Vol] 139 mmol/L Normal 136-144 [facility] Comment on above: Order Comment: Speci men Type: BLOOD SPECIMEN Ordering Facility: [facility] Address: [address] [place], [place] [address] Performed By: #### 2 4321-2 #### [facility] CLIA [id number] [address] [place], [place] [address] [place] Urea nitrogen [Mass/Vol] 8 mg/dL Normal 7-21 [facility] Comment on above: Order Comment: Speci men Type: BLOOD SPECIMEN Ordering Facility: [facility] Address: [address] [place], [place] [address] Performed By: #### 2 4321-2 #### [facility] CLIA [id number] [address] [place] [address] [place] Orthopedic Visit Reporton Orthopedic Visit Report [facility] [address] [place] [address] OFFICE VISIT Date of Service: 08/16/24 MR#: [id number] Acct: [id number] Name: MARVIN MARIANO Rep #: [id number] : 1970 Provider: Dr. Pepe chinchilla MD Age/Sex: 54/F Location: [facility] Status: Signed with Addenda ADDENDUM by Ciara Sanders on 08/16/24 at 1512 Office Procedure Documentation entered by Ciara Sanders 08/16/24 15:12: Ortho Injections Injections Yes Subacromial Injection Left Is this a patient provided medication?: No Details: Obtained consent for injection. Under sterile conditions, injected the patients left shoulder with 2cc Kenalog 4cc bupivacaine. The patient tolerated the injection well without any noted complication. Patient should call our office if redness develops, pain worsens or if they have any concerns. Office Meds Kenalog 40 mg/mL suspension for injection Performing Provider: Pepe Garcia MD Performing Location: [facility] Administered by: Pepe Garcia MD on 08/16/24 15:10 Dose Route Admin Location Dispensed Lot Number Expiration Date [facility] Man ufacturer 80 mg intra-articular left shoulder 2 mL [id number] 02/03/26 6987-6125-75 [employer] [facility] Date cc: * Signed Intake Vital Signs 01/06/24 13:01 Height 5 ft 6 in Intake Visit Reasons: LEFT SHOULDER Chief Complaint: left shoulder Accompanied by: Self Is patient in pain?: Yes Pain scale (1-10): 6 Allergies bupropion (From Wellbutrin) Allergy (Mild, Verified 08/16/24 13:22) Itching Medications ???Medication ???Instructions ???Recorded ???Confirmed ???Type fluticasone propionate 50 gm intranasal 05/24/22 08/16/24 History mcg/actuation nasal spray,suspension prednisone 10 mg tablet 10 mg PO UD #33 tabs 01/06/24 08/16/24 Rx zolpidem 5 mg tablet 5 mg PO DAILY Insomnia 05/20/24 08/16/24 History potassium chloride 20 mEq 20 meq PO ONCE Hypokalemia 08/16/24 08/16/24 History tablet,extended release spironolactone 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 08/16/24 08/16/24 History PFSH Medical History (Updated 08/16/24 @ 13:27 by Pepe Garcia MD) Left rotator cuff tear FH: cholecystectomy IBS (irritable bowel syndrome) Gallstones History of back problems Seasonal allergies Surgical History History of lumbar surgery Hx of section History of hysterectomy Family History Mother Breast cancer Arthritis Depression Hypertension High cholesterol Social History Smoking Status: Former smoker alcohol intake: never substance use type: does not use HPI LEFT SHOULDER Details: This documentation accurately reflects the service provided and the decisions made by me, Dr. Pepe Garcia MD 08/16/24 9309. Part of today???s visit was documented by [ ], acting as scribe. MARVIN MARIANO is a 54 year old F here today for follow-up left shoulder MRI results. Patient now has had 2 cortisone injections last 1 being about 3 months ago. The patient did get good relief with the pain has returned. 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 Ortho Exam General General: Yes no acute distress Neurologic: Yes alert and Yes oriented x3 Psychologic: Yes reasonable and appropriate Left Shoulder Skin/Wound: Yes CDI, No ecchymosis, No erythema and No swelling Testing: Yes Hawkin's, Yes Neer's, No TTP Biceps, No TTP AC Joint, Yes AROM-Forward Elevation 0-180, Yes AROM-External Rotation at 90 0-60, Yes AROM-External Rotation at side 0-60 and Yes empty can Supplemental Info [facility] Imaging Services [address] [place], [place] [address] Upper Ext Joint Only(Routine) MR#: [id number] Acct: [id number] Name: MARVIN MARIANO Rep #: [id number] : 1970 F 54 From: Vikram Drew MD PCP: Dr. Dirk Delgado MD Status: REG CLI Study: Upper Ext Joint Only(Routine) Date of Exam: 07/28/24 Exam# [id number] Ordering Dr: Pepe Garcia MD [id number] EXAM: MR LEFT UPPER EXTREMITY WITHOUT INTRAVENOUS CONTRAST, SHOULDER CLINICAL INDICATION: pain TECHNIQUE: Multiplanar and multisequence MR images of the left shoulder without intravenous contrast. COMPARISON: July 27, 2022 FINDINGS: TENDONS: SUPRASPINATUS: Low to moderate grade partial-thickne (more content not included)... Normal [facility] Surgery Specimen Level Shahnaz 08-16-2024 Surgery Specimen Level IV ---- Patient Age/Sex Location Account Attending Physician ---- MARVIN MARIANO 54/F [facility] [id number] Dr. Dirk Delgado MD ---- Specimen: [id number] Received: 08/17/24 Status: HARI Calderon Num: [id number] Spec Type: Lesion Subm Dr: Dr. Dirk Delgado MD HEADER OPERATION: Neoplasm of right inner calf PRE-OP DIAGNOSIS: Right inner calf TISSUE SUBMITTED: Punch biopsy - 4mm ---- MICROSCOPIC DIAGNOSIS Right inner calf lesion, punch biopsy: Suggestive of lentigo. Dermal fibrosis. Negative for malignancy. See comment. 08/18/2024 COMMENT Excision of the lesion is suggested, if clinically indicated. Case has been reviewed in consultation with Dr. Campbell who concurs with the above diagnosis. IDC:AM MICROSCOPIC DESCRIPTION Slides are reviewed. GROSS DESCRIPTION Received is one container labeled with the patient's name and not further designated. The specimen consists of a punch biopsy of santiago-white skin measuring 0.4 cm in diameter and 0.3 cm in length. The entire specimen is submitted in one cassette. 08/17/2024 TC:5 CPT:25991 ---- Patient Age/Sex Location Account Attending Physician ---- MARVIN MARIANO 54/F [facility] [id number] Dr. Dirk Delgado MD ---- Signed (signature on file) Dr. Anupam Umana MD 08/18/24 1335 ---- [facility] Comment on above: Performed By: #### P FREEMAN #### [facility] Laboratory [address] [place], [address] PT D/C Summary (1)on 024 PT D/C Summary (1) [facility] Physical Therapy [facility] [address] [place] [address] / REHABILITATION SERVICES DISCHARGE SUMMARY MR#: [id number] Acct: [id number] Name: MARVIN MARIANO Rep #: [id number] : 1970 54 From: Shy MORALES Referring Dr.: Dr. Pepe Garcia MD Status: R EG RCR Insurance: [employer] SELF PAY INSURANCE Discharge Summary D/C summary: It has been my pleasure to treat MARVIN MARIANO referred by Dr. Pepe Garcia MD, with the diagnosis of L Impingement Syndrome for a total of 5 visit(s). Discharge Date: 08/10/24 Please see the following information for a summary of their discharge status. Subjective Subjective: Patient reports she reached for something behind her in the car and had sharp pain in her anterior shoulder. Does not feel therapy has been helpful, plans to call Dr about getting a MRI. Pain L shoulder pain: Pain Intensity (Out of 10): 0 Objective Objective/Function: Patient plans to call the Dr tomorrow about lack of improvement and trying to get a MRI scheduled. Progressed a few exercises to HEP wiht pics. Goals Goal 1:: I HEP Goal 2:: Full shoulder flexion and abd with no pain Goal 3:: Sit with more upright posture during treatment sessions Plan Plan: DC PT 2X/ week for 4-6 weeks for AAROM, scapular and RC strength, postural exercises with HEP D/C Information Discharge Comments: DC PT d/c sentence: If there are questions or concerns regarding this patient's physical therapy, please feel free to call me at [phone]. Thank you for the referral of this patient. Sincerely, CARMEN Mcneal Balance/Gait/Functiona l tests Balance/Special Test Scores Quick DASH Score: 11.3625 08/10/24 0724 CC: Dr. Dirk Delgado MD; Dr. Pepe Garcia MD Signed Normal [facility] Basic metabolic 2000 panelon 08-07-2024 Anion gap [Moles/Vol] 11 mmol/L Normal 8-15 [facility] Comment on above: Order Comment: Speci men Type: BLOOD SPECIMEN Ordering Facility: [facility] Address: [address] [place] [address] Performed By: #### 2 4321-2 #### [facility] CLIA [id number] [address] [place] [address] [place] Calcium [Mass/Vol] 9.9 mg/dL Normal 8.5-10.2 [facility] Comment on above: Order Comment: Speci men Type: BLOOD SPECIMEN Ordering Facility: [facility] Address: [address] [place] [address] Performed By: #### 2 4321-2 #### [facility] CLIA [id number] [address] [place] [address] [place] Chloride [Moles/Vol] 105 mmol/L Normal 98-[address] [facility] Comment on above: Order Comment: Speci men Type: BLOOD SPECIMEN Ordering Facility: [facility] Address: [address] [place] [address] Performed By: #### 2 4321-2 #### [facility] CLIA [id number] [address] [place] [address] [place] CO2 [Moles/Vol] 25 mmol/L Normal 22-30 [facility] Comment on above: Order Comment: Speci men Type: BLOOD SPECIMEN Ordering Facility: [facility] Address: [address] [place] [address] Performed By: #### 2 4321-2 #### [facility] CLIA [id number] [address] [place] [address] [place] Creatinine [Mass/Vol] 0.86 mg/dL Normal 0.58-0.96 [facility] Comment on above: Order Comment: Speci men Type: BLOOD SPECIMEN Ordering Facility: [facility] Address: [address] [place] [address] Performed By: #### 2 4321-2 #### [facility] CLIA [id number] [address] [place] [address] [place] Creatinine and Glomerular filtration rate.predicted panel (S/P/Bld) 81 mL/min/1.73m??? Normal >=60 [facility] Comment on above: Order Comment: Codie waldron Type: BLOOD SPECIMEN Ordering Facility: [facility] Address: [address] [place] [address] Result Comment: Vanna mated Glomerular Filtration Rate (eGFR) is calculated using the 2020 CKD-EPI creatinine equation. This equation utilizes serum creatinine, sex, and age as parameters. The creatinine assay has traceable calibration to isotope dilution-mass spectrometry. Refer to KDIGO guidelines for clinical interpretation. In patients with unstable renal function, e.g. those with acute kidney injury, the eGFR may not accurately reflect actual GFR. Performed By: #### 2 4321-2 #### [facility] CLIA [id number] [address] [place] [address] [place] Glucose [Mass/Vol] 104 mg/dL High 74-99 [facility] Comment on above: Order Comment: Codie waldron Type: BLOOD SPECIMEN Ordering Facility: [facility] Address: [address] [place] [address] Result Comment: The [place] Diabetes Association (ADA) provides guidance for cutoff values for fasting glucose and random glucose. The ADA defines fasting as no caloric intake for at least 8 hours. Fasting plasma glucose results between 100 to 125 mg/dL indicate increased risk for diabetes (prediabetes). Fasting plasma glucose results greater than or equal to 126 mg/dL meet the criteria for diagnosis of diabetes. In the absence of unequivocal hyperglycemia, results should be confirmed by repeat testing. In a patient with classic symptoms of hyperglycemia or hyperglycemic crisis, random plasma glucose results greater than or equal to 200 mg/dL meet the criteria for diagnosis of diabetes. Reference: Standards of Medical Care in Diabetes 2016, [place] [employer]. Diabetes Care. 2016.39(Suppl 1). Performed By: #### 2 4321-2 #### [facility] CLIA [id number] [address] [place] [address] [place] Potassium [Moles/Vol] 4.1 mmol/L Normal 3.7-5.1 [facility] Comment on above: Order Comment: Speci men Type: BLOOD SPECIMEN Ordering Facility: [facility] Address: [address] [place] [address] Performed By: #### 2 4321-2 #### [facility] CLIA [id number] [address] [place] [address] [place] Sodium [Moles/Vol] 141 mmol/L Normal 136-144 [facility] Comment on above: Order Comment: Speci men Type: BLOOD SPECIMEN Ordering Facility: [facility] Address: [address] [place] [address] Performed By: #### 2 4321-2 #### [facility] CLIA [id number] [address] [place] [address] [place] Urea nitrogen [Mass/Vol] 12 mg/dL Normal 7-21 [facility] Comment on above: Order Comment: Speci men Type: BLOOD SPECIMEN Ordering Facility: [facility] Address: [address] [place] [address] Performed By: #### 2 4321-2 #### [facility] CLIA [id number] [address] [place] [address] [place] Upper Ext Joint Only(Routine )on 07-28-2024 Upper Ext Joint Only(Routine) [facility] Imaging Services [address] [place], [place] [id number] Upper Ext Joint Only(Routine) MR#: [id number] Acct: [id number] Name: MARVIN MARIANO Rep #: [id number] : 1970 F 54 From: Vikram Drew MD PCP: Dr. Dirk Delgado MD Status: REG CLI Study: Upper Ext Joint Only(Routine) Date of Exam: Exam# [id number] Ordering Dr: Pepe Garcia [place] [id number] EXAM: MR LEFT UPPER EXTREMITY WITHOUT INTRAVENOUS CONTRAST, SHOULDER CLINICAL INDICATION: pain TECHNIQUE: Multiplanar and multisequence MR images of the left shoulder without intravenous contrast. COMPARISON: July 27, 2022 FINDINGS: TENDONS: SUPRASPINATUS: Low to moderate grade partial-thickness articular sided tearing of the anterior fibers of supraspinatus tendon with failure at the footprint. INFRASPINATUS: Unremarkable. Intact. SUBSCAPULARIS: Unremarkable. Intact. TERES MINOR: Unremarkable. Intact. BICEPS BRACHII, LONG HEAD: Unremarkable. The extra-articular biceps tendon is in the bicipital groove. The intra-articular biceps tendon is normal. LIGAMENTS: GLENOHUMERAL: Unremarkable. Intact. MUSCLES: Unremarkable. No rotator cuff muscle atrophy. FLUID: Small amount of fluid in the subacromial subdeltoid is compatible with bursitis. No joint effusion. CARTILAGE: Unremarkable. Articular cartilage intact. GLENOID LABRUM: Unremarkable. Intact, limited evaluation on non-arthrographic exam. BONES/JOINTS: Moderate hypertrophic degenerative changes acromioclavicular joint. Type I acromion with flat undersurface. No subacromial enthesophyte or os acromiale. No fracture. No abnormal bone marrow signal. OTHER SOFT TISSUES: Unremarkable. No rotator interval edema. MRI/Upper Ext Joint Only(Routine) IMPRESSION: Low to moderate grade partial-thickness articular sided tearing of the anterior fibers of supraspinatus tendon with failure at the footprint. Subacromial/subdeltoid bursitis. Low-grade partial-thickness tearing involving the supraspinatus tendon. Electronically Signed: Vikram Drew MD at 22:50 EDT , CC: Dr. Dirk Delgado MD; Dr. Pepe Garcia MD Fruit Grading Supervisor: Signed [facility] 07-13-2024 [facility] Office Visit (OTFGFL ) MARVIN MARIANO ([id number]) 1970 F Date Time Provider Department 07/13/24 3:00 PM [facility] During your visit today, we recorded the following information about you: Pulse Respiration Blood pressure Weight 68/minute 16/minute 110/60 79.8 kg Height 1.676 m Cipriano Wong MD 07/13/2024 4:12 PM Addendum Continue diet changes and eating high potassium food. Get lab work in a couple of weeks. Let us know if the higher dose of spironolactone is helping or not. We might consider changing to a different diuretic. Cipriano Wong MD 07/25/2024 11:47 AM Signed [place]: Marvin Mariano is a 54 year old, White, female who presents, I am here about my Meniere's/hydrops. A year ago April she had a URI which resolved. She then noticed a sense of right ear fullness and mild right hearing loss. She also has intermittent right HF tone tinnitus. She does not have actual dizziness but she does have a lot of motion sickness. She saw [facility] and was diagnosed with cochlear hydrops. She was treated with oral steroids, antibiotics, and Claritin-D. This did not change her symptoms. She tried Maxzide but needed potassium supplementation. She felt like it helped for the first month or so but then she had a symptom flare. She went to the ED and was treated with oral prednisone which helped for a short time but her symptoms returned. She tried hydrochlorothiazide which also significantly lowered her potassium. She was changed to spironolactone 25 mg daily and potassium 20 mill equivalents/day 04/17/2024. She still has symptoms. She did have an MRI which was negative. She went on vacation and had no symptoms while on vacation but her symptoms returned when she got back. She does do a low caffeine/low salt diet. SUBJECTIVE: I reviewed the allergies, medications, problem list, PMH/PSH, FmHx and SocHx as documented in Epic chart. PHYSICAL EXAM: VS: BP 110/60 Pulse 68 Resp 16 Ht 167.6 cm (5' 6) Wt 79.8 kg (176 lb) BMI 28.41 kg/m? CONST/MS: The patient appears to be in NAD and has a normal voice quality. H/F/N: The facial motion is overall normal. There are no palpable salivary gland, thyroid or neck masses. Ears: The external ears and canals are without lesions. Each TM is intact and mobile on pneumatic otoscopy. Nose: The external nose has a left alar piercing. The nasal mucosa appears healthy on nasal speculum exam. The septum has right deviation. The IT are not hypertrophic. OC/OP: The lips and gums are without lesions. The tongue/oral mucosa is healthy. The hard/soft palate, tonsil fossa and posterior pharynx are without lesions. The teeth have some crowns and fillings. DELI CUTTER SLICER: The mirror exam is without obvious lesions. HP/LX: The mirror exam is without obvious lesion hypopharynx but the epiglottis blocked view of the larynx. OBJECTIVE: I reviewed an outside audiogram 05/29/2023 which showed the left side normal and the right side mild SNHL at 250 and 500 Hz. Word scores 100. Tympanograms normal peaks. I reviewed an outside audiogram 05/28/2024 which showed left mild SNHL and right LF moderate sloping up to HF mild SNHL. I reviewed a brain MRI report 01/29/2024 which showed no tumor. ASSESSMENT AND PLAN: I counseled the patient about the differential diagnosis, natural course, treatment options and answered their questions for all diagnoses and orders: 1. 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 Ear pressure, right - ICD9: 388.8, ICD10: H93.8X1 3. Sensorineural hearing loss (SNHL) of right ear with restricted hearing of left ear - ICD9: 389.22, ICD10: H90.A21 4. Hypokalemia - ICD9: 276.8, ICD10: E87.6 I counseled her we could increase his spironolactone dose. A prescription for spironolactone 50 mg #30, 1 RF was sent. She was counseled to get a BMP in 2 weeks as we may need to increase her potassium dose. We could consider Diamox. She was counseled to come in sooner if there are problems. Return in about 3 months (around 10/13/2024) for Ears, cochlear hydrops. Cipriano Wong MD 50 minutes Total time including preparation, obtaining/reviewing history, exam, interpreting results, ordering, counseling/education, referring/communicatin g and documentation. Created using voice recognition software, some errors may have occurred. Corrections may be performed at a later date. Allergies As of Date: 07/13/2024 Noted Allergy Reaction BUPROPION HCL 12/22/2018 9 - Itching Date Reviewed: 07/13/2024 Reviewed by: Cipriano Wong MD - Fully Assessed Reason for Visit: Ear Problem [38] Cmt: Cochlear hydrops--right ear fullness, pressure in mastoid bone Visit Diagnoses:Cochlear hydrops of right ear [H81.01] Ear pressure, right [H93.8X1] Sensorineural hearing loss (SNHL) of right ear with restricted hearing of left ear [H90.A (more content not included)... Normal [facility] Basic Metabolic Profile (BMP )on 06-24-2024 BUN/CRE 10.8 RATIO Normal 10-20 [facility] Comment on above: Performed By: #### L 500.2500 #### [facility] [address] [place], [address] CA,Total 9.6 mg/dL Normal 8.5-10.1 [facility] Comment on above: Performed By: #### L 500.2500 #### [facility] [address] [place], [address] Chloride [Moles/Vol] 108 mmol/L High 98-107 [facility] Comment on above: Performed By: #### L 500.2500 #### [facility] [address] [place], [address] CO2 [Moles/Vol] 26.0 mmol/L Normal 21.0-32.0 [facility] Comment on above: Performed By: #### L 500.2500 #### [facility] [address] [place], [address] Creatinine [Mass/Vol] 0.83 mg/dL Normal 0.55-1.02 [facility] Comment on above: Result Comment: The validity of the calculated GFR GFRAA in patients over 70 years has not been determined. Clinical correlation is essential. Performed By: #### L 500.2500 #### [facility] [address] [place], [address] EST GFR - AA 92 mL/min Normal >60 [facility] Comment on above: Result Comment: Afri can [place] GFR Calc Performed By: #### L 500.2500 #### [facility] [address] [place], [address] GAP 7 Normal 5-15 [facility] Comment on above: Performed By: #### L 500.2500 #### [facility] [address] [place], [address] GFR/1.73 sq M.predicted among non-blacks MDRD (S/P/Bld) [Vol rate/Area] 76 mL/min/{1.73_m2} Normal >60 [facility] Comment on above: Result Comment: Non- GFR Calc Performed By: #### L 500.2500 #### [facility] [address] [place], [address] Glucose [Mass/Vol] 84 mg/dL Normal 74-106 [facility] Comment on above: Performed By: #### L 500.2500 #### [facility] [address] [place], [address] Potassium [Moles/Vol] 3.7 mmol/L Normal 3.5-5.1 [facility] Comment on above: Performed By: #### L 500.2500 #### [facility] [address] [place], [address] Sodium [Moles/Vol] 141 mmol/L Normal 136-145 [facility] Comment on above: Performed By: #### L 500.2500 #### [facility] [address] [place], [place], [address] Urea nitrogen [Mass/Vol] 9 mg/dL Normal 7-18 [facility] Comment on above: Performed By: #### L 500.2500 #### [facility] [address] [place], [place], [address] Inital Evaluation (1) - PTon 06-09-2024 Inital Evaluation (1) - PT [facility] Physical Therapy [facility] [address] [place] [address] / REHABILITATION SERVICES INITIAL EVALUATION MR#: [id number] Acct: [id number] Name: MARVIN MARIANO Rep #: [id number] : 1970 54 From: Shy MORALES Referring Dr.: Dr. Pepe Garcia MD Status: R EG RCR Insurance: [employer] SELF PAY INSURANCE Patient's Visit Information Visit Information Visit Information: MARVIN MARIANO is a 54 year old F referred to Physical Therapy by Dr. Pepe Garcia MD with a diagnosis of L Impingement Syndrome. Date of Evaluation: 06/09/24 Physical Therapist: CARMEN Mcneal Visit Plan Frequency: 2x /Week Duration: 6 Weeks Plan: 2X/ week for 4-6 weeks for AAROM, scapular and RC strength, postural exercises with HEP HEP: mid rows green, supine wand flexion, scapular retraction Subjective Subjective: Pt does not have much pain now since the injection. She still has occ discomfort occ. She was on vacation all last week. She got the injection about 1 month ago. She can lay on that shoulder now. She does find that in the morning she is achy but it goes away. She feels like her L shoulder is weak. She is L handed. She has no N T. She did an x-ray and it showed nothing. This is her 3rd injection and she gets a year out of them. She will get an MRI once done with PT. She is R handed. Pain L shoulder pain: Pain Intensity (Out of 10): 0 Pain Intensity Range: 2 Objective Objective: R handed: R foreign languages department chair 65 and L 63 pounds C-spine AROM: Full AROM in all plans UE AROM: flex and abd on the L approx 150 degrees with pain at end range of both. R AROM 170 flexion and 180 ABD. Full IR B shoulders B UE MMT: R shoulder flex 9.9 and L 8.9 R shoulder ABD 9.9 and L 8.9 R shoulder ER 12.2 and L 13.6 R shoulder IR 11.7 and L 12.2 +HK on the L Bicep reflex B 2+/3 PROM L shoulder painful at end range Balance/Special Test Scores Quick DASH Score: 11.3625 Goals Goal 1:: I HEP Goal Time Frame: 4-6 Weeks Goal 2:: Full shoulder flexion and abd with no pain Goal Time Frame: 4-6 Weeks Goal 3:: Sit with more upright posture during treatment sessions Rehabilitation Potential Rehabilitation Potential: Good Anticipated Interventions Patient/Client Instruction: Educate patient on: Condition and Plan of Care For the Purpose of:: To decrease pain, To increase ROM, To improve nutrient delivery to tissue, To improve muscle performance and motor function, To improve ability to perform ADL's, To increase tolerance to activity/condition/pos ition, To improve performance and independence with ADL's, To decrease level of supervision to perform tasks, To improve health of tissue, To decrease soft tissue restriction and To increase flexibility/ROM Therapeutic Exercise to Include: Strength training, Postural training, Flexibilty training, Passive ROM, Active ROM and Scapular Strength/Stabilization For the Purpose of:: To decrease pain, To decrease swelling/inflammation, To increase ROM, To improve nutrient delivery to tissue, To increase oxygenation perfusion, To improve muscle performance and motor function, To improve ability to perform ADL's, To increase tolerance to activity/condition/pos ition, To improve performance and independence with ADL's, To decrease level of supervision to perform tasks, To improve ability of physical actions for home/community/work/le isure, To improve gait and locomotor functions, To improve health of tissue, To decrease soft tissue restriction and To increase flexibility/ROM Manual Therapy Techniques to Include: Soft tissue mobilization For the Purpose of:: To increase ROM Cryotherapy (ice pack, ice massage): Yes Thermo therapy (hot pack): Yes Ultrasound (thermal/non thermal): Yes For the Purpose of:: To decrease pain, To decrease swelling/inflammation, To improve muscle performance and motor function and To improve ability to perform ADL's Text: Thank you for the opportunity to evaluate your patient. For Medicare and Medicare HMO plans, please review the plan of care and approve it. It will need to be FAXED BACK to us at [phone] for Medicare purposes. For Medicare only, by signing this I certify the plan of care. Please let me know if there are questions or concerns regarding this plan of care. Physician Signature: Date:__ 06/09/24 1910 CC: Dr. Dirk Delgado MD; Dr. Pepe Garcia MD Signed Normal [facility] Orthopedic Visit Reporton Orthopedic Visit Report [facility] [address] [place] [address] OFFICE VISIT Date of Service: 05/20/24 MR#: [id number] Acct: [id number] Name: MARVIN MARIANO Rep #: [id number] : 1970 Provider: Dr. Pepe chinchilla MD Age/Sex: 54/F Location: [facility] Status: Signed with Addenda ADDENDUM by Ciara Sanders on 05/20/24 at 1634 Office Procedure Documentation entered by Ciara Sanders 05/20/24 16:34: Ortho Injections Injections Yes Subacromial Injection Left Is this a patient provided medication?: No Details: Obtained consent for injection. Under sterile conditions, injected the patients left shoulder with 2cc Kenalog 4cc bupivacaine. The patient tolerated the injection well without any noted complication. Patient should call our office if redness develops, pain worsens or if they have any concerns. Office Meds Kenalog 40 mg/mL suspension for injection Performing Provider: Pepe Garcia MD Performing Location: [facility] Administered by: Pepe Garcia MD on 05/20/24 16:32 Dose Route Admin Location Dispensed Lot Number Expiration Date [facility] More[employer] ufacturer 80 mg intra-articular left shoulder 2 mL [id number] 01/04/26 9174-1748-01 [facility] Comments: Bupivacaine 0.25% 4cc lot : [id number] exp : 12/04/24 [facility] : 2644-4432-02 Date cc: * Signed Intake Vital Signs 01/06/24 13:01 Height 5 ft 6 in Intake Visit Reasons: left shoulder Chief Complaint: left shoulder Accompanied by: Self Is patient in pain?: Yes Pain scale (1-10): 4 Allergies bupropion (From Wellbutrin) Allergy (Mild, Verified 05/20/24 15:31) Itching Medications ???Medication ???Instructions ???Recorded ???Confirmed ???Type dicyclomine 10 mg capsule 10 mg PO BID 05/24/22 05/20/24 History fluticasone propionate 50 gm intranasal 05/24/22 05/20/24 History mcg/actuation nasal spray,suspension Saccharomyces boulardii 250 mg 250 mg PO BID 07/22/23 05/20/24 History capsule (Daily Probiotic (S. boulardii)) mirtazapine 15 mg tablet (Remeron) 7.5 mg PO DAILY 07/22/23 05/20/24 History triamterene 37.5 1 cap PO DAILY 07/22/23 05/20/24 History mg-hydrochlorothiazide 25 mg capsule prednisone 10 mg tablet 10 mg PO UD #33 tabs 01/06/24 05/20/24 Rx potassium chloride 20 mEq 20 meq PO TID Hypokalemia 05/20/24 05/20/24 History tablet,extended release spironolactone 25 mg tablet 25 mg PO DAILY Menieres disease 05/20/24 05/20/24 History zolpidem 5 mg tablet 5 mg PO DAILY Insomnia 05/20/24 05/20/24 History PFSH Medical History FH: cholecystectomy Gallstones History of back problems IBS (irritable bowel syndrome) Seasonal allergies Surgical History History of hysterectomy History of lumbar surgery Hx of section Family History Mother Breast cancer Arthritis Depression Hypertension High cholesterol Social History Smoking Status: Former smoker alcohol intake: never substance use type: does not use HPI left shoulder Details: This documentation accurately reflects the service provided and the decisions made by me, Dr. Pepe Garcia MD 05/20/24 3193. Part of today???s visit was documented by [ ], acting as scribe. MARVIN MARIANO is a 54 year old F here today for 10 months following up left shoulder pain and subacromial cortisone injection at last visit. I did order an MRI but the patient has not had that. L shoulder pain, anterior and lateral. Patient has not yet tried physical therapy but they are interested in that. We did order the MRI but that was denied by the insurance company for lack of physical therapy. The pain is worse with overhead lifting and any sort of range of motion of the shoulder. The injections do seem to be effective for the patient and she is interested for repeat cortisone shot today. Ortho Exam General General: Yes no acute distress Neurologic: Yes alert and Yes oriented x3 Psychologic: Yes reasonable and appropriate Left Shoulder Skin/Wound: Yes CDI, No ecchymosis, No erythema and No swelling Testing: Yes Hawkin's, Yes Neer's, No TTP Biceps, No TTP AC Joint, Yes AROM-Forward Elevation 0-180, Yes AROM-External Rotation at 90 0-60, Yes AROM-External Rotation at side 0-60, Yes PROM-Forward Elevation 0-180, Yes PROM-External Rotation at side 0-60, No Apprehension Test, No Sulcus Sign, Yes empty can, No Load and Shift and No cross arm Internal Rotation: L3 Coding Level of Care Code Attention Respiratory Supervisor Diagnoses Impingement synd (more content not included)... Normal [facility] Basophil percentageOrdered B y: Dirk Delgado on 01-24-2024 Chloride [Moles/Vol] 103 mmol/L 98-107 [facility] Glucose [Mass/Vol] 107 mg/dL 74-106 [facility] Comment on above: Fasting Glucose resu lt from 100 to 125 mg/dL suggests IMPAIRED HOMEOSTASIS per A.D.A. criteria. Potassium [Moles/Vol] 3.2 mmol/L 3.5-5.1 [facility] Sodium [Moles/Vol] 140 mmol/L 136-145 [facility] - Chemistry and C hemistry - challengeOrdered By: Dirk Delgado on 01-24-2024 CO2 [Moles/Vol] 30.0 mmol/L 21.0-32.0 [facility] Urea nitrogen/Creatinine [Mass ratio] 6.7 mg/mg 10- [facility] No Panel InformationOrdered By: Dirk Delgado on 01-24-2024 Estimated GFR (MDRD) Amer 71 mL/min >60 [facility] Comment on above: GFR Calc Estimated GFR (MDRD) Non-Af Amer 59 mL/min >60 [facility] Comment on above: Non- GFR Calc Serum or plasma calcium prateek urement (mass/volume)Ordered By: Dirk Delgado on 01-24-2024 Calcium [Mass/Vol] 9.2 mg/dL 8.5-10.1 [facility] Serum or plasma creatinine m easurement (mass/volume)Ordered By: Dirk Delgado on 01-24-2024 Creatinine [Mass/Vol] 1.05 mg/dL 0.55-1.02 [facility] Comment on above: The validity of the calculated GFR & GFRAA in patients over 70 years has not been determined. Clinical correlation is essential. Serum or plasma urea nitroge n measurement (mass/volume)Ordered By: Dirk Delgado on 01-24-2024 Urea nitrogen [Mass/Vol] 7 mg/dL 7-18 [facility] Thin prep Papanicolaou smear with manual screeningOrdered By: Dirk Delgado on 01-24-2024 Thin prep Papanicolaou smear with manual screening 7 5-15 [facility] Basophil percentageOrdered B y: Dirk Delgado on 01-12-2024 Chloride [Moles/Vol] 97 mmol/L 98-107 [facility] Glucose [Mass/Vol] 97 mg/dL 74-106 [facility] Potassium [Moles/Vol] 3.2 mmol/L 3.5-5.1 [facility] Sodium [Moles/Vol] 135 mmol/L 136-145 [facility] - Chemistry and C hemistry - challengeOrdered By: Dirk Delgado on 01-12-2024 CO2 [Moles/Vol] 31.0 mmol/L 21.0-32.0 [facility] Urea nitrogen/Creatinine [Mass ratio] 12.5 mg/mg 10-20 [facility] No Panel InformationOrdered By: Dirk Delgado on 01-12-2024 Estimated GFR (MDRD) Amer 72 mL/min >60 [facility] Comment on above: GFR Calc Estimated GFR (MDRD) Non-Af Amer 59 mL/min >60 [facility] Comment on above: Non- GFR Calc Serum or plasma calcium prateek urement (mass/volume)Ordered By: Dirk Delgado on 01-12-2024 Calcium [Mass/Vol] 9.9 mg/dL 8.5-10.1 [facility] Serum or plasma creatinine m easurement (mass/volume)Ordered By: Dirk Delgado on 01-12-2024 Creatinine [Mass/Vol] 1.04 mg/dL 0.55-1.02 [facility] Comment on above: The validity of the calculated GFR & GFRAA in patients over 70 years has not been determined. Clinical correlation is essential. Serum or plasma urea nitroge n measurement (mass/volume)Ordered By: Dirk Delgado on 01-12-2024 Urea nitrogen [Mass/Vol] 13 mg/dL 7-18 [facility] Thin prep Papanicolaou smear with manual screeningOrdered By: Dirk Delgado on 01-12-2024 Thin prep Papanicolaou smear with manual screening 7 5-15 [facility] Basophil percentageOrdered B y: Dirk Delgado on 11-24-2023 Chloride [Moles/Vol] 108 mmol/L 98-107 [facility] Glucose [Mass/Vol] 83 mg/dL 74-106 [facility] Potassium [Moles/Vol] 3.1 mmol/L 3.5-5.1 [facility] Sodium [Moles/Vol] 141 mmol/L 136-145 [facility] - Chemistry and C hemistry - challengeOrdered By: Dirk Delgado on 11-24-2023 CO2 [Moles/Vol] 31.0 mmol/L 21.0-32.0 [facility] Urea nitrogen/Creatinine [Mass ratio] 12.0 mg/mg 10-20 [facility] No Panel InformationOrdered By: Dirk Delgado on 11-24-2023 Estimated GFR (MDRD) Amer 120 mL/min >60 [facility] Comment on above: GFR Calc Estimated GFR (MDRD) Non-Af Amer 99 mL/min >60 [facility] Comment on above: Non- GFR Calc Serum or plasma calcium prateek urement (mass/volume)Ordered By: Dirk Delgado on 11-24-2023 Calcium [Mass/Vol] 8.7 mg/dL 8.5-10.1 [facility] Serum or plasma creatinine m easurement (mass/volume)Ordered By: Dirk Delgado on 11-24-2023 Creatinine [Mass/Vol] 0.66 mg/dL 0.55-1.02 [facility] Comment on above: The validity of the calculated GFR & GFRAA in patients over 70 years has not been determined. Clinical correlation is essential. Serum or plasma thyroid stim ulating hormone (TSH) measurement (units/volume)Ordered By: Dirk Delgado on 11-24-2023 TSH Qn 2.31 uIU/mL 0.358-3.74 [facility] Serum or plasma urea nitroge n measurement (mass/volume)Ordered By: Dirk Delgado on 11-24-2023 Urea nitrogen [Mass/Vol] 8 mg/dL 7-18 [facility] Thin prep Papanicolaou smear with manual screeningOrdered By: Dirk Delgado on 11-24-2023 Thin prep Papanicolaou smear with manual screening 2 5-15 [facility] Basophil percentageOrdered B y: Dirk Delgado on 06-25-2023 Chloride [Moles/Vol] 99 mmol/L 98-107 [facility] Glucose [Mass/Vol] 98 mg/dL 74-106 [facility] Potassium [Moles/Vol] 3.4 mmol/L 3.5-5.1 [facility] Sodium [Moles/Vol] 137 mmol/L 136-145 [facility] - Chemistry and C hemistry - challengeOrdered By: Dirk Delgado on 06-25-2023 CO2 [Moles/Vol] 33.0 mmol/L 21.0-32.0 [facility] Urea nitrogen/Creatinine [Mass ratio] 9.8 mg/mg 10 [facility] No Panel InformationOrdered By: Dirk Delgado on 06-25-2023 Estimated GFR (MDRD) Amer 83 mL/min >60 [facility] Comment on above: GFR Calc Estimated GFR (MDRD) Non-Af Amer 69 mL/min >60 [facility] Comment on above: Non- GFR Calc Serum or plasma calcium prateek urement (mass/volume)Ordered By: Dirk Delgado on 06-25-2023 Calcium [Mass/Vol] 9.9 mg/dL 8.5-10.1 [facility] Serum or plasma creatinine m easurement (mass/volume)Ordered By: Dirk Delgado on 06-25-2023 Creatinine [Mass/Vol] 0.92 mg/dL 0.55-1.02 [facility] Comment on above: The validity of the calculated GFR & GFRAA in patients over 70 years has not been determined. Clinical correlation is essential. Serum or plasma urea nitroge n measurement (mass/volume)Ordered By: Dirk Delgado on 06-25-2023 Urea nitrogen [Mass/Vol] 9 mg/dL 7-18 [facility] Thin prep Papanicolaou smear with manual screeningOrdered By: Dirk Delgado on 06-25-2023 Thin prep Papanicolaou smear with manual screening 5 5-15 [facility] No Panel InformationOrdered By: Dr. Delgado on 01-03-2023 Follicle Stimulating Hormone 42.6 mIU/mL [facility] Comment on above: NORMAL REFERENCE RAN GES FEMALE FOLLICULAR 2.3 - 12.6 mIU/mL MID-CYCLE PEAK 5.2 - 17.5 mIU/mL LUTEAL 1.7 - 12.9 mIU/mL POST-MENOPAUSAL ON MHT 5.9 - 72.8 mIU/mL NOT ON MHT 12.7 - 132.2 mlU/mL MALE 0.7 - 10.8 mIU/mL Luteinizing Hormone 41.9 mIU/mL [facility] Comment on above: NORMAL REFERENCE RAN GES FEMALE FOLLICULAR 1.9 - 26.2 mIU/mL MID-CYCLE PEAK 22.8 - 76.1 mIU/mL LUTEAL 0.6 - 16.6 mIU/mL POST-MENOPAUSAL ON MHT 1.1 - 52.4 mIU/mL NOT ON MHT 8.6 - 61.8 mIU/mL MALE 1.2 - 10.6 mIU/mL Thyroid Stimulating Hormone (TSH) 1.88 uIU/mL 0.358-3.74 [facility] Serum or plasma estrogen luciano surement (mass/volume)Ordered By: Dr. Delgado on 01-03-2023 Estrogen [Mass/Vol] 49 pg/mL . [facility] Comment on above: Prepubertal < 40 Fem monserrat Cycle: 1-10 Days 16 - 328 11-20 Days 34 - 501 21-30 Days 48 - 350 Post-Menopausal 40 - 244Performed at: [facility] [id number] Director: Theodora Nicholas MD, Phone: [phone] Absolute lymphocyte counton 01-25-2022 Lymphocytes Auto (Unsp spec) [#/Vol] 2.61 10*3/uL 0.83-4.51 [facility] Work Phone: Basophil percentageon 2021 Basophils/100 WBC (Bld) 0.8 % 0-1 [facility] Work Phone: Bilirubin [Mass/Vol] 0.30 mg/dL 0.20-1.00 [facility] Work Phone: Comment on above: For patients on eltr ombopag therapy, use of Dimension Newberg TBIL is not recommended. Chloride [Moles/Vol] 107 mmol/L 98-107 [facility] Work Phone: Eosinophils/100 WBC (Bld) 1.4 % 0-5 [facility] Work Phone: Glucose [Mass/Vol] 85 mg/dL 74-106 [facility] Work Phone: [phone] Neutrophils (Bld) [#/Vol] 3.1 10*3/uL 2.0-7.7 [facility] Work Phone: [phone] Neutrophils/100 WBC (Bld) 48.8 % 47-70 [facility] Work Phone: Potassium [Moles/Vol] 3.6 mmol/L 3.5-5.1 [facility] Work Phone: [phone] Protein [Mass/Vol] 8.1 g/dL 6.4-8.2 [facility] Work Phone: [phone] Sodium [Moles/Vol] 139 mmol/L 136-145 [facility] Work Phone: WBC (Bld) [#/Vol] 6.3 10*3/uL 4.4-11.0 [facility] Work Phone: Blood erythrocytes count (nu mber/volume)on 01-25-2022 RBC (Bld) [#/Vol] 4.41 10*6/uL 4.2-5.4 [facility] Work Phone: Blood hemoglobin measurement (mass/volume)on 01-25-2022 Hemoglobin (Bld) [Mass/Vol] 13.1 g/dL 12.0-15.0 [facility] Work Phone: Blood lymphocytes/100 leukoc yteson 01-25-2022 Lymphocytes/100 WBC (Bld) 41.5 % 19-41 [facility] Work Phone: Blood monocytes/100 leukocyt eson 01-25-2022 Monocytes/100 WBC (Bld) 7.3 % 0-10 [facility] Work Phone: Blood platelet mean volumeon 01-25-2022 Platelet mean volume (Bld) [Entitic vol] 11.0 fL 6.2-12.0 [facility] Work Phone: Determination of erythrocyte mean corpuscular volume (MCV)on 01-25-2022 MCV (RBC) [Entitic vol] 92.7 fL 81-99 [facility] Work Phone: [phone] Hematocrit Auto (Bld) [Volum e fraction]on 01-25-2022 Hematocrit (Bld) [Volume fraction] 40.9 % 37-47 [facility] Work Phone: Laboratory - Chemistry and C hemistry - challengeon 01-25-2022 ALP [Catalytic activity/Vol] 74 U/L 45-117 [facility] Work Phone: ALT [Catalytic activity/Vol] 31 U/L 13-56 [facility] Work Phone: [phone] CO2 [Moles/Vol] 28.0 mmol/L 21.0-32.0 [facility] Work Phone: [phone] Globulin (S) [Mass/Vol] 4.2 g/dL 2.2-4.2 [facility] Work Phone: [phone] Urea nitrogen/Creatinine [Mass ratio] 7.5 mg/mg 10-20 [facility] Work Phone: [phone] Laboratory - Hematology and Cell countson 01-25-2022 Erythrocyte distribution width (RBC) [Entitic vol] 44.8 fL 35.1-43.9 [facility] Work Phone: [phone] Erythrocyte distribution width (RBC) [Ratio] 13.1 % 11.6-14.6 [facility] Work Phone: [phone] Immature granulocytes/100 WBC (Bld) 0.200 % 0.0-0.9 [facility] Work Phone: Comment on above: IG% - Immature Granu locytes (promyelocytes, myelocytes and metamyelocytes) > 1% indicates that a LEFT SHIFT is Present. MCH (RBC) [Entitic mass] 29.7 pg 27.0-32.0 [facility] Work Phone: [phone] Nucleated RBC/100 WBC (Bld) [Ratio] 0 % 0-5 [facility] Work Phone: MCHC Auto (RBC) [Mass/Vol]on 01-25-2022 MCHC (RBC) [Mass/Vol] 32.0 g/dL 32-36 [facility] Work Phone: No Panel Informationon 01-25 Estimated GFR (MDRD) Amer 98 mL/min >60 [facility] [facility] Work Phone: Comment on above: GFR Calc Estimated GFR (MDRD) Non-Af Amer 81 mL/min >60 [facility] Work Phone: Comment on above: Non- GFR Calc Thyroid Stimulating Hormone (TSH) 1.83 uIU/mL 0.358-3.74 [facility] Work Phone: Vitamin D 25-Hydroxy 27.3 ng/mL [facility] Work Phone: Comment on above: Vitamin D 25(OH) Sta tus Range Deficiency <20 ng/mL (50nmol/L) Insufficiency 20 - 30 ng/mL (50 - 75 nmol/L) Sufficiency 30 - 100 ng/mL (75 - 250 nmol/L) Toxicity >100 ng/mL (>250 nmol/L) Platelets bldon 01-25-2022 Platelets (Bld) [#/Vol] 341 10*3/uL 150-450 [facility] Work Phone: Serum or plasma albumin prateek urement (mass/volume)on 01-25-2022 Albumin [Mass/Vol] 3.9 g/dL 3.2-5.0 [facility] Work Phone: Serum or plasma albumin/glob ulin mass ratioon 01-25-2022 Albumin/Globulin [Mass ratio] 0.9 {ratio} 0.9-2.4 [facility] Work Phone: Serum or plasma calcium prateek urement (mass/volume)on 01-25-2022 Calcium [Mass/Vol] 8.8 mg/dL 8.5-10.1 [facility] Work Phone: Serum or plasma creatinine m easurement (mass/volume)on 01-25-2022 Creatinine [Mass/Vol] 0.80 mg/dL 0.55-1.02 [facility] Work Phone: Comment on above: The validity of the calculated GFR & GFRAA in patients over 70 years has not been determined. Clinical correlation is essential. Serum or plasma urea nitroge n measurement (mass/volume)on 01-25-2022 Urea nitrogen [Mass/Vol] 6 mg/dL 7-18 [facility] Work Phone: Thin prep Papanicolaou smear with manual screeningon 01-25-2022 Thin prep Papanicolaou smear with manual screening 20 U/L 15-37 [facility] Work Phone: Thin prep Papanicolaou smear with manual screening 4 5-15 [facility] Work Phone: PT Progress Noteon 9 Protein mass conc Insurance Insurance reviewed Visit number: 2 Approved number of visits: 30 Subjective Patient reports: No pain currently. She states that she has not had much pain at all including the in the calf. No longer taking the Naproxen. Sleeping is not disturbed. Patient rates current pain 0/10. Home program performing as directed: Yes. Objective Ortho Improved lumbar ROM. Minimal restriction in extension. Treatment Updated HEP TE, NMR 2. Time in clinic: She started at 3:35, total time is 40 minutes, total timed code time is 39 minutes. Provided today: a personalized home program (Scanned). Assessment Attempted hip flexion isometric however this produced feeling of hip popping out. Thus, modification to SLR was performed. Pt is doing well with her HEP and has made good progress. She did very well today with exercises including good pace and form. Plan Pt to continue with HEP with focus still on initial exercises issued. She is doing well independently managing her symptoms. Pt has no more visits scheduled. I will keep her chart active for 2-3 weeks at which point i will D/C her if she does not need to come in. Signatures Electronically signed by : Carola Franks PT; Nov 11 2018 4:19PM EST (Author) [facility] PT Initial Evaluationon 10-07 PT Initial Evaluation Reason For Visit Initial Evaluation . Sciatica/L radic. Referred by: Dirk Delgado Subjective Current Episode of Functional Impairment and/or Pain Date of onset: 09/05/18 Mechanism of Injury:. C/o L glute symptoms that radiates into lateral aspect of calf and ankle. Symptoms skip the thigh. Hx of microdiscectomy in L4-5 2008, L5-S1 2010. Residual numbness in lateral L calf since surgery. No change in numbness. Initially she was diagnosed with bursitis and had an injection and was prescribed Gabapentin without relief. Cramping in calf that will not let up. -Cough, sneeze, strain. Initially experienced weakness in LLE with drop foot like symptoms. Can not recall anything to cause her symptoms. Notes pain left LB after moving exam table at work in March however symptoms improved. She later noted that her hips pop out of place and have done so for years. Pain: Patient rates pain 0/10 . Least severe: 0/10. Most Severe: 10/10. Her pain is constant and improving . Constant in calf and ankle. Exacerbating Factors:. Standing, sitting. Relieving Factors:. Combination of prescribed medications, heat, sitting on tennis ball, laying down, stretches. Medical Screening: No signs of domestic/child or elder abuse . Fall risk no . Medical screening assessed. Functional Assessment and Medical Management Prior level of function: No limitations. Functional limitations: work related responsibilities intially . Leisure activities: reading. 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 Current Status: improving. Current Medical Management:. No imaging. Patient stated goal(s) for treatment include: relieving pain and reducing symptoms . Living Environment:. Denies issues with stairs. Stairs present in home. Sleep Habits: She reports episodes of disturbed sleep No recently however pt reports that it has . Sleep Posture: left side, right side. Exercise: She does not exercise. Personal Factors That May Impact Care: language Confirmed Angolan. Objective Ortho +Slump L (noted symptoms produced just when asked to do a LAQ) +SLR L pt noted tightness from glute to calf Hamstring flexibility: R 25 degrees, L 35 degrees with pain. Strength Hip: (Morel: P! Denotes Pain with Movement) Extension: 4+/5 on right and 4/5 on left. Flexion: 4+/5 on right and 4+/5 on left. Abduction: 4/5 on right and 4+/5 on left. Adduction: 4+/5 on right and 4/5 on left. Calera Lumbar Assessment Sitting Posture: fair. Negative deficits for myotomes or dermatomes. Flexion: no restriction observed and end range pain pulling in LLE. Extension: moderate restriction observed and end range pain noted tightness . Side Bend R: moderate restriction observed. Side Bend L: moderate restriction observed. Mechanical Lumbar Testing Pretest Symptoms Standing: No pain RFIS Testin REPS. Symptoms with RFIS testing are:. At first she noted pulling in LLE, however no pain after she was completed reps. KAILA Testin REPS. Symptoms with KAILA testing are:. No pain. Noted tightness in LB. REIL Testinx REPS. REIL testing: has no effect on symptoms. Symptoms with REIL testing are:. 10 times with sag: NE. Assessment Pt presents with c/o L radic in lateral calf and ankle. She initially experienced glute/hip pain that has subsided She has negative red flags, santiago/dermatomal deficits however she does have positive neural tension tests. Her symptoms are consistent with possible derangement with lateral component. She responded well to sagittal plane movement today and lateral movements were not explored as a result. Pt will benefit from Physical Therapy to improve overall function and learn self-management techniques. Clinical Presentation: Stable and/or uncomplicated characteristics. Level of Complexity: low Problem List: pain, range of motion/joint mobility, strength and Oswestry: 18%. Therapy Diagnosis Assessed Left lumbar radiculopathy (724.4) (M54.16) Treatment Treatment Performed Today:. Today's treatment: Initial evaluation completed. Issued/reviewed HEP with patient that included repeated lumbar extension in lying and in standing (for instances when lying position isn't possible). Discussed use of lumbar roll for seated positions and the importance of monitoring symptoms with all activity. Response to treatment: improved knowledge and understanding of condition. Patient was able to complete today's treatment with ease. Evaluation Code: 76185 PT Eval: Low Complexity. Timed: 69289 Therapeutic Exercises. Time in clinic: Treatment started at 4:00, total treatment time: 50 minutes, total timed code time: 10 minutes. Resources provided today: home program (scanned) Plan of Care Planned interventions include: cryotherapy, dry needling, education/instruction, electrical stimulation, home program, hot pack, manual therapy, neuromuscular re-education and therapeutic exercises. Goals: Goals set and discussed today. By discharge MARVIN RATLIFF will achieve the following goals: Pain: Decrease to 0-3 with all functional, recreational and work related activity. Range of Motion/Joint Mobility: Increase by > or = 25% without increased pain to decrease stress on spine to perform bathing/dressing and grooming tasks. Strength: Increase by > or = 1/2 mm grade to improve postural awareness and mechanics without increased pain/compensation to lift/carry groceries, perform household duties. Sit with proper posture > or = to 15 minutes without increased pain or VCs to perform job duties and drive. Decrease Oswestry score by greater than or = to 6 points Pt to be independent in HEP for self management and prevention Frequency and duration:. 1 time in 2-3 weeks to determine if modifications are needed to HEP. Potential to achieve rehab goals is good Plan of care was developed with input and agreement by the patient. 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 Electronically Signed Out by ALBERT ANGULO M.D. Electronically SignedOut By ALBERT ANGULO MD/[facility] Microscopic Description:Microscopi c analysis shows a symmetric, papular proliferation of blandmelanocytes in dermis. Dermal melanocytes mature with increasing depth indermis and show no cytologic atypia. Clinical History:Benign skin lesion of lower back L98.9. DP Shave Biopsy. Specimens Submitted As:A: SKIN, LEFT LOWER BACK Gross Description:Received in formalin is a santiago piece of skin measuring [id number]. The specimen isinked and embedded in toto.dcp/10/02/[address] [facility] Comment on above: Performed By: #### D ####Dermatopathology Vital Signs Date Time Vital Sign Value Performing Clinician Facility 05-16-2025 10:52-0400 Body height 167.[address] Dirk Delgado MD Work Phone: [facility] 05-16-2025 10:52-0400 Body mass index (BMI) [Ratio] 27.4 kg/m2 Dr. Dirk Delgado MD Work Phone: [facility] 05-16-2025 10:52-0400 Body weight 77.[address] Dirk Delgado MD Work Phone: [facility] 03-02-2025 14:18-0400 Body height 167.6 cm Cipriano Wong MD Work Phone: [facility] 03-02-2025 14:18-0400 Body mass index (BMI) [Ratio] 28.08 kg/m2 Cipriano Wong MD Work Phone: [facility] 03-02-2025 14:18-0400 Body weight 78.93 kg Cipriano Wong MD Work Phone: [facility] 03-02-2025 14:18-0400 Diastolic blood pressure 70 mm[Hg] Cipriano Wong MD Work Phone: [facility] 03-02-2025 14:18-0400 Heart rate 84 /min Cipriano Wong MD Work Phone: [facility] 03-02-2025 14:18-0400 Respiratory rate 16 /min Cipriano Wong MD Work Phone: [facility] 03-02-2025 14:18-0400 Systolic blood pressure 118 mm[Hg] Cipriano Wong MD Work Phone: [facility] 11-16-2024 22:28-0500 Diastolic Blood Pressure Non-Invasive 68 mm[Hg] DR VONNIE BROWNING MD [facility] 11-16-2024 22:28-0500 Heart rate 81 /min DR VONNIE BROWNING MD [facility] 11-16-2024 22:28-0500 Respiratory rate 16 /min DR VONNIE BROWNING MD [facility] 11-16-2024 22:28-0500 Systolic Blood Pressure Non-Invasive 104 mm[Hg] DR VONNIE BROWNING MD [facility] 11-16-2024 18:38-0500 Body height 167.[address] VONNIE BROWNING MD [facility] 11-16-2024 18:38-0500 Body temperature 98.24 [degF] DR VONNIE BROWNING MD [facility] 11-16-2024 18:38-0500 Body weight [address] VONNIE BROWNING MD [facility] 11-16-2024 18:38-0500 Diastolic Blood Pressure Non-Invasive 75 mm[Hg] DR VONNIE BROWNING MD [facility] 11-16-2024 18:38-0500 Heart rate 85 /min DR VONNIE BROWNING MD [facility] 11-16-2024 18:38-0500 Respiratory rate 16 /min DR VONNIE BROWNING MD [facility] 11-16-2024 18:38-0500 Systolic Blood Pressure Non-Invasive 119 mm[Hg] DR VONNIE BROWNING MD [facility] 10-14-2024 15:52-0500 Body height 167.6 cm Cipriano Wong MD Work Phone: [facility] 10-14-2024 15:52-0500 Body mass index (BMI) [Ratio] 28.41 kg/m2 Cipriano Wong MD Work Phone: [facility] 10-14-2024 15:52-0500 Body weight 79.83 kg Cipriano Wong MD Work Phone: [facility] 10-14-2024 15:52-0500 Diastolic blood pressure 82 mm[Hg] Cipriano Wong MD Work Phone: [facility] 10-14-2024 15:52-0500 Heart rate 99 /min Cipriano Wong MD Work Phone: [facility] 10-14-2024 15:52-0500 Respiratory rate 18 /min Cipriano Wong MD Work Phone: [facility] 10-14-2024 15:52-0500 Systolic blood pressure 127 mm[Hg] Cipriano Wong MD Work Phone: [facility] 07-13-2024 15:36-0400 Body height 167.6 cm Cipriano Wong MD Work Phone: [facility] 07-13-2024 15:36-0400 Body mass index (BMI) [Ratio] 28.41 kg/m2 Cipriano Wong MD Work Phone: [facility] 07-13-2024 15:36-0400 Body weight 79.83 kg Cipriano Wong MD Work Phone: [facility] 07-13-2024 15:36-0400 Diastolic blood pressure 60 mm[Hg] Cipriano Wong MD Work Phone: [facility] 07-13-2024 15:36-0400 Heart rate 68 /min Cipriano Wong MD Work Phone: [facility] 07-13-2024 15:36-0400 Respiratory rate 16 /min Cipriano Wong MD Work Phone: [facility] 07-13-2024 15:36-0400 Systolic blood pressure 110 mm[Hg] Cipriano Wong MD Work Phone: [facility] 01-06-2024 13:01-0400 Body height 167.64 cm [facility] 01-06-2024 13:01-0400 Body mass index (BMI) [Ratio] 26.9 kg/m2 [facility] 01-06-2024 13:01-0400 Body temperature 97.1 [degF] [facility] 01-06-2024 13:01-0400 Body weight 75.6 kg [facility] 01-06-2024 13:01-0400 Diastolic blood pressure 91 mm[Hg] [facility] 01-06-2024 13:01-0400 Heart rate 79 /min [facility] 01-06-2024 13:01-0400 Respiratory rate 16 /min [facility] 01-06-2024 13:01-0400 SaO2% (BldA) [Mass fraction] 97 % [facility] 01-06-2024 13:01-0400 Systolic blood pressure 148 mm[Hg] [facility] Encounters Encounter Date Encounter Type Care Provider Facility Start: 07-20-2025 ambulatory Dirk Delgado Facility:[facility] Start: 05-16-2025 End: 05-16-[address] Pepe Garcia MD -[facility] Work Phone: Start: 05-16-2025 End: 05-16-[address] Dirk Delgado MD Work Phone: -[facility] Start: 04-15-2025 End: 04-15-2025 ambulatory Cipriano Wong MD Work Phone: [facility] Start: 04-15-2025 End: 04-15-2025 Patient encounter procedure Cipriano Wong MD Work Phone: [facility] ([facility]) Comment on above: Vertigo Start: 04-07-2025 End: 04-07-2025 Telephone encounter Cipriano Wong MD Work Phone: [facility] ([facility]) Comment on above: Medication Request; Patient Update Start: 03-21-2025 End: 03-21-2025 Telephone encounter Cipriano Wong MD Work Phone: [facility] ([facility]) Comment on above: Patient Update Start: 03-21-2025 End: 03-21-2025 ambulatory CIPRIANO WONG Facility:[facility] Start: 03-03-2025 End: 03-03-[address] Pepe Garcia MD -[facility] Work Phone: Start: 03-03-2025 End: 03-03-[address] Dirk Delgado MD Work Phone: [facility] Work Phone: Start: 03-02-2025 End: 03-02-2025 ambulatory JULIEN BECERRA Facility:[facility] Start: 03-02-2025 End: 03-02-2025 Patient encounter procedure Julien Becerra [facility] Work Phone: [facility] ([facility]) Comment on above: Asymmetrical sensori neural hearing loss (Primary Dx); Meniere's disease, right Meniere's disease, r ight; Otalgia, right; Ear pressure, right; Tinnitus, right; Sensorineural hearing loss (SNHL) of right ear with unrestricted hearing of left ear Start: 02-18-2025 End: 02-18-2025 Telephone encounter Cipriano Wong MD Work Phone: [facility] (ENT) Comment on above: Patient Question Start: 02-09-2025 End: 02-09-2025 Telephone encounter Cipriano Wong MD Work Phone: [facility] ([facility]) Start: 12-28-2024 End: 12-28-2024 ambulatory Cipriano Wong MD Work Phone: [facility] ([facility]) Start: 12-28-2024 End: 12-28-2024 Patient encounter procedure Cipriano Wong MD Work Phone: [facility] ([facility]) Comment on above: Vertigo Start: 12-22-2024 End: 12-22-[address] Dirk Delgado MD Work Phone: [facility] Work Phone: Start: 12-22-2024 End: 12-22-[address] Dirk Delgado MD -Laboratory, [facility] Start: 12-22-2024 End: 12-22-2024 ambulatory Dirk Delgado Facility:[facility] Start: 12-16-2024 End: 12-16-2024 Patient encounter procedure Cipriano Wong MD Work Phone: [facility] ([facility]) Comment on above: Cochlear hydrops of right ear; Sensorineural hearing loss (SNHL) of right ear with unrestricted hearing of left ear; Ear pressure, right; Tinnitus, right Start: 12-16-2024 End: 12-16-2024 ambulatory CIPRIANO WONG Facility:[facility] Start: 11-20-2024 End: 11-20-2024 ambulatory CIPRIANO WONG Facility:[facility] Start: 11-16-2024 End: 11-16-2024 Emergency department patient visit DR VONNIE BROWNING MD [facility] Start: 10-25-2024 End: 10-25-[address] Dirk Delgado MD -[facility] Work Phone: Start: 10-25-2024 End: 10-25-2024 ambulatory Dirk Delgado Facility:[facility] Start: 10-18-2024 End: 10-18-2024 Telephone encounter Cipriano Wong MD Work Phone: [facility] (ENT) Comment on above: Results, Lab Start: 10-16-2024 End: 10-16-2024 ambulatory CIPRIANO WONG Facility:[facility] Start: 10-14-2024 End: 10-14-2024 ambulatory CIPRIANO WONG Facility:[facility] Start: 10-14-2024 End: 10-14-2024 Patient encounter procedure Julien Becerra [facility] Work Phone: [facility] (ENT) Comment on above: Sensorineural hearin g loss (SNHL) of right ear with unrestricted hearing of left ear (Primary Dx) Cochlear hydrops of right ear; Ear pressure, right; Sensorineural hearing loss (SNHL) of right ear with restricted hearing of left ear; Hypokalemia Start: 09-14-2024 Encounter for genera l adult medical examination without abnormal findings Dirk Delgado [facility] Start: 09-04-2024 End: 09-04-2024 ambulatory CIPRIANO WONG Facility:[facility] Start: 08-16-2024 End: 08-17-2024 ambulatory Dirk Delgado Facility:[facility] Start: 08-16-2024 End: 08-16-2024 ambulatory Dirk Delgado Facility:[facility] Start: 08-07-2024 End: 08-07-2024 ambulatory CIPRIANO WONG Facility:[facility] Start: 08-05-2024 End: 08-09-2024 Refill Cipriano Wong MD Work Phone: [facility] (ENT) Comment on above: Med Change Request Start: 07-28-2024 End: 07-28-2024 ambulatory Dirk Delgado Facility:[facility] Start: 07-13-2024 End: 07-13-2024 Patient encounter procedure Cipriano Wong MD Work Phone: [facility] ([facility]) Comment on above: Cochlear hydrops of right ear; Ear pressure, right; Sensorineural hearing loss (SNHL) of right ear with restricted hearing of left ear; Hypokalemia Start: 07-13-2024 End: 07-13-2024 ambulatory CIPRIANO WONG Facility:[facility] Start: 06-28-2024 End: 06-28-2024 ambulatory Dirk Delgado Facility:[facility] Start: 06-24-2024 End: 06-24-2024 ambulatory Dirk Delgado Facility:[facility] Start: 05-20-2024 End: 05-20-2024 ambulatory Dirk Delgado Facility:[facility] Start: 01-29-2024 End: 01-29-2024 ambulatory [facility] Work Phone: Start: 01-29-2024 End: 01-29-2024 Patient encounter procedure [facility]MRI - [facility] Work Phone: Start: 01-24-2024 End: 01-24-2024 ambulatory [facility] Work Phone: Start: 01-24-2024 End: 01-24-2024 Patient encounter procedure [facility]-Laboratory Work Phone: Start: 01-12-2024 End: 01-12-2024 ambulatory [facility] Work Phone: Start: 01-12-2024 End: 01-12-2024 Patient encounter procedure [facility] Start: 01-06-2024 End: 01-06-2024 Emergency department patient visit [facility]-Emergency Department Work Phone: Start: 11-24-2023 End: 11-24-2023 ambulatory [facility] Work Phone: Start: 11-24-2023 End: 11-24-2023 [facility] Start: 09-12-2023 End: 09-12-[address] Dirk Delgado Work Phone: [facility] Work Phone: Start: 09-12-2023 End: 09-12-[address] Dirk Delgado Work Phone: [facility]-Outpatient Breast Imaging Work Phone: Start: 07-22-2023 End: 07-22-[address] Dirk Delgado Work Phone: [facility] Work Phone: Start: 06-25-2023 End: 06-25-2023 ambulatory [facility] Work Phone: Start: 06-25-2023 End: 06-25-2023 Patient encounter procedure [facility] Start: 01-03-2023 End: 01-03-2023 ambulatory [facility] Work Phone: Start: 01-03-2023 End: 01-03-2023 Patient encounter procedure [facility] Start: 07-17-2022 End: 07-17-[address] Dirk Delgado Work Phone: [facility] Work Phone: Start: 07-17-2022 End: 07-17-[address] Dirk Delgado Work Phone: [facility] Ultrasound Start: 07-16-2022 End: 07-16-[address] [facility] Delgado [facility] - [facility] Work Phone: Start: 07-16-2022 End: 07-16-[address] Dirk Delgado Work Phone: [facility] Start: 07-05-2022 End: 07-05-[address] Dirk Delgado Work Phone: [facility] Start: 05-24-2022 End: 05-24-[address] Dirk Delgado Work Phone: [facility] Start: 05-17-2022 End: 05-17-[address] Dirk Delgado Work Phone: [facility] Start: 01-25-2022 End: 01-25-2022 Patient encounter procedure [facility] Start: 11-11-2018 Patient encounter procedure Dirk Delgado Facility:[id number] Start: 10-26-2018 Patient encounter procedure Dirk Delgado Facility:[id number] Start: 09-30-2017 Ambulatory [facility] Huddleston ty:[id number] Procedures Date Procedure Procedure Detail Performing Clinician Start: 03-02-2025 HEARING TEST/AUDIOGRAM Julien Foy Mariam AUD Work Phone: Start: 10-25-2024 Screening mammography Dayne Delgado MD Work Phone: Start: 10-14-2024 HEARING TEST/AUDIOGRAM Julien Foy Mariam AUD Work Phone: Start: 01-29-2024 MRI of brain with contrast Start: 09-12-2023 Screening mammography Dayne Delgado Work Phone: Start: 07-17-[address] Dirk Delgado Work Phone: Start: 07-16-2022 Screening mammography Dayne Delgado Work Phone: Start: 05-17-2022 MRI of cervical spine Dayne Delgado Work Phone: Start: 01-25-2022 Plain X-ray of shoulder Plan of Treatment Date Care Activity Detail Author Start: 02-05-2029 Urine microalbumin profile DTaP,Tdap,Td Vaccine (2 - Td or Tdap) [facility] Start: 03-21-2028 Diabetes Screening Diabetes Screenin g [facility] Start: 11-20-2027 Diabetes Screening Diabetes Screenin [facility] Start: 10-16-2027 Diabetes Screening Diabetes Screenin [facility] Start: 09-04-2027 Diabetes Screening Diabetes Screenin g [facility] Start: 08-07-2027 Diabetes Screening Diabetes Screenin g [facility] Start: 06-16-2025 End: 06-16-2025 Patient encounter procedure 06/16/2025 2:45 PM EDT Office Visit [facility] Th[facility] (ENT) [address] [place] [address] Cipriano Wong MD [address] [place] [address] f/u ears [facility] Ear, Nose, and Throat (ENT) Comment on above: f/u ears Start: 06-06-[address] [facility] Start: 03-21-2025 End: 06-20-2025 Basic metabolic 2000 panel - Serum or Plasma [facility] Work Phone: Comment on above: Expected: 03/21/2025 , Expires: 06/20/2025 Start: 12-16-2024 End: 12-16-2024 Patient encounter procedure 12/16/2024 2:30 PM EDT Office Visit [facility] Ear, Nose, and Throat (ENT) [address] [place] [address] Cipriano Wong MD [address] [place] [address] 2 mn f/u for ears [facility] Ear, Nose, and Throat (ENT) Comment on above: 2 mn f/u for ears Start: 10-18-2024 End: 01-17-2025 Basic metabolic 2000 panel - Serum or Plasma BASIC METABOLIC PANEL Lab Routine Hypokalemia Expected: 10/18/2024, Expires: 01/17/2025 [facility] Work Phone: Comment on above: Expected: 10/18/2024 , Expires: 01/17/2025 Start: 10-14-2024 End: 10-14-2024 Patient encounter procedure [facility] Ear, Nose, and Throat (ENT) Comment on above: F/U Ears/Cochlear hy drops pre hearing test for BMS Start: 08-09-2024 End: 11-08-2024 Basic metabolic 2000 panel - Serum or Plasma BASIC METABOLIC PANEL Lab Routine Hypokalemia Expected: 08/09/2024, Expires: 11/08/2024 [facility] Work Phone: Comment on above: Expected: 08/09/2024 , Expires: 11/08/2024 Start: 07-13-2024 End: 10-12-2024 Basic metabolic 2000 panel - Serum or Plasma BASIC METABOLIC PANEL Lab Routine Hypokalemia Expected: 07/13/2024, Expires: 10/12/2024 [facility] Work Phone: Comment on above: Expected: 07/13/2024 , Expires: 10/12/2024 Start: 06-06-2024 Covid-19 Vaccine () Covid-19 Vaccine () [facility] Start: 06-06-2024 Influenza vaccination Influenza Vacc ine (#1) [facility] Start: 01-06-2024 [facility] Start: 02-15-2022 Pneumococcal Vaccine : 50+ (1 of 1 - PCV) Pneumococcal Vaccine: 50+ (1 of 1 - PCV) [facility] Start: 02-15-2022 Shingrix Vaccine (1 of 2) Shingrix Vaccine (1 of 2) [facility] Start: 02-15-2017 Diabetes Screening Diabetes Screenin g [facility] Start: 02-15-2017 Lipid panel Lipid Screening [facility] Start: 02-15-2017 Screening for malign ant neoplasm of colon [facility] Start: 2012 Screening for malign ant neoplasm of breast Mammogram Screening [facility] Start: 02-15-1993 Screening for malign ant neoplasm of cervix Cervical Cancer Screening [facility] Start: 02-15-1991 Hepatitis B Vaccine (1 of 3 - 19+ 3-dose series) Hepatitis B Vaccine (1 of 3 - 19+ 3-dose series) [facility] Start: 02-15-1990 Anxiety Screening Anxiety Screening [facility] Start: 02-15-1990 Depression Screening Depression Scre ening [facility] Start: 02-15-1990 Hepatitis C screening Hepatitis C Sc josr [facility] Start: 02-15-1990 HIV screening HIV Screening [facility] MR Lower Extremity Joint [facility] Work Phone: MR Lower Extremity Joint [facility] Patient Education ED Meniere's Disease [facility] Work Phone: Patient referral [facility] Work Phone: Immunizations Immunization Date Immunization Notes Care Provider Galina marcos 07-15-2013 influenza virus vacc ine, unspecified formulation Cipriano Wong MD Work Phone: [facility] Payers Date Payer Category Payer Unknown [id number] 2024 Self-pay [id number] 2023 [employer] [facility] BS FEP PPO [id number] 2023 Unknown [id number] 2023 Unknown [id number] 1970 Unknown [id number] .[id number] 1972 Unknown [id number] .356 1972 Unknown [id number] .[id number] Unknown [id number] Unknown [id number] Unknown [id number] Unknown [id number] Unknown [id number] .462 Unknown [id number] [id number] .462 Unknown [id number] .462 Unknown [id number] .462 Unknown [id number] [id number] .462 Unknown [id number] [id number] .462 Unknown [id number] [id number] .462 Unknown [id number] [id number] .462 Unknown [id number] .462 Unknown [id number] [id number] .462 Unknown [id number] .462 Social History Date Type Detail Facility Tobacco smoking stat [facility] Unknown if ever smoked [facility] Work Phone: Start: 1970 Sex Assigned At Female W [facility] Start: 07-05-2022 End: 01-06-2024 Tobacco smoking status MOIS Unknown if ever smoked [facility] Start: 01-06-2024 End: 07-13-2024 Tobacco smoking status NHIS Ex-smoker [facility] History of tobacco use Current smoker [facility] History of tobacco use Cigarette Smoker C [facility] Start: 07-13-2024 Tobacco use and exposure Smokeless tobacco non-user [facility] Start: 07-13-2024 End: 03-02-2025 Alcoholic beverage intake Ex-drinker (finding) [facility] Start: 07-13-2024 End: 03-02-2025 History of Social function [facility] Start: 07-13-2024 End: 03-02-2025 Tobacco use panel [facility] National Score (1-10 0), lower number is lower risk 66 [facility] Start: 07-09-2024 Gender identity Identifies as female gender (finding) [facility] Start: 07-09-2024 Sexual orientation Heterosexual (fin ding) [facility] Start: 12-29-2024 Sex Female (finding) [facility] Functional Status Date Assessment Result Facility 11-16-2024 Functional Status ID band on, Call device within reach, Bed in low position [facility] 11-16-2024 Functional Status [facility] Mental Status Date Assessment Result Facility 11-16-2024 Mental Status Orientation Oriented x 4 [facility] 11-16-2024 Mental Status [facility] 01-06-2024 Cognitive function Level Of Cons ciousness Awake;Alert;Appropriate;Follow s Commands [facility] Work Phone: Clinical Notes 07-13-2024 to 05-16-2025 Note Date & Type Note Facility 05-16-2025 Progress note [facility] 05-16-2025 Progress note Note Date/Time May 16, 2025 11:07am [facility] [place] [address] OFFICE VISIT Date of Service: 05/16/25 MR#: [id number] Acct: [id number] Name: MARVIN MARIANO Rep # : [id number] : 1970 Provider: Dr. Geremias Garcia MD Age/Sex: 55/F Location: [facility] Status: Signed Intake Vital Signs 01/06/24 13:01 05/16/25 10:52 Height 5 ft 6 in 5 ft 6 in Weight: 170 lb BMI 27.4 Intake Visit Reasons: LEFT SHOULDER Chief Complaint: left shoulder discuss about surgery Accompanied by: Self Is patient in pain?: No Allergies bupropion (From Wellbutrin) Allergy (Mild, Verified 05/16/25 10:55) Itching Medications ?Medication ?Instructions ?Recorded ?Confirmed ?Type fluticasone propionate 50 gm intranasal 05/24/2205/16 History mcg/actuation nasal spray,suspension prednisone 10 mg tablet 10 mg PO UD #33 tabs 4 05/16/25 Rx zolpidem 5 mg tablet 5 mg PO DAILY Insomnia 05/2005/16/25 History potassium chloride 20 mEq 20 meq PO ONCE Hypokalemia 1 10/16/23 05/16/25 History tablet,extended release spironolactone 25 mg tablet 100 mg PO DAILY Menieres d isease 03/03/25 05/16/25 History betahistine (bulk) 100 % powder ea miscellaneous 05/1605/16/25 History Have you fallen in the past year?: No PFSH Medical History Left rotator cuff tear FH: cholecystectomy IBS (irritable bowel syndrome) Gallstones History of back problems Seasonal allergies Surgical History History of lumbar surgery Hx of section History of hysterectomy Family History Mother Breast cancer Arthritis Depression Hypertension High cholesterol Social History Smoking Status: Former smoker alcohol intake: never substance use type: does not use HPI LEFT SHOULDER Details: This documentation accurately reflects the service provided and the decisions made by me, Dr. Pepe Garcia MD 05/16/25 1018. Part of today?s visit was documented by [ ], acting as scribe. MARVIN MARIANO is a 55 year old F here today for FU L shoulder pain. 2 injections now, last one 2 months ago. Has PASTA SS tear. injection still working well. Supplemental Info MRI/Upper Ext Joint Only(Routine) IMPRESSION: Low to moderate grade partial-thickness articular sided tearing of the anterior fibers of supraspinatus tendon with failure at the footprint. Subacromial/subdeltoid bursitis. Low-grade partial-thickness tearing involving the supraspinatus tendon. Electronically Signed: Vikram Drew MD at 22:50 EDT Coding Level of Care Code Off vis,est,level 4 Diagnoses Left rotator cuff tear M75.102 Impingement syndrome, shoulder, left M75.42 Assessment and Plan Assessment and Plan (1) Left rotator cuff tear: Status: Acute Plan: MARVIN MARIANO is a 55 year old F here today for FU L shoulder pain. 2 injections now, last one 2 months ago. Has PASTA SS tear. Patient would like to proceed with surgery we have discussed this prior. Recovery 2 weeks in a sling 6 weeks gentle range of motion and after 3 to 6 months before going back to heavy lifting pushing and pulling. Patient understands wants to go ahead with left shoulder arthroscopy, subacromial decompression, rotator cuff repair. Pros and cons risks and benefits were discussed with the patient including but not limited to infection, pain, stiffness, bleeding, damage to surrounding structures, neurovascular injury, recurrence or retear, failure or wear of hardware or fixation, instability, fracture, deep vein thrombosis and pulmonary embolism, anesthetic risks, , patient dissatisfaction, need for further surgery and other risks. Patient understood and wished to proceed with surgery,and signed the informed consent documentation. Patient counselled on non-operative and operative means of treating shoulder pain. Conservative options include but not limited to: 1. Rest and Activity Modification: Giving your shoulder time to heal by avoidingmovements that cause pain can help. This may involve limiting overhead activities or heavy lifting. 2. Physical Therapy: A physical therapist can guide you through exercises that strengthen the muscles around the shoulder, improve flexibility, and reduce strain on the rotator cuff tendon. 3. Ice and Heat Therapy: Applying ice to the shoulder can help reduce swelling and pain, especially after activity. Heat can be helpful to relax tense muscles and improve blood flow before exercises. 4. Anti-Inflammatory Medications: Ngve-gwz-txcajpn medications like ibuprofen ornaproxen can help reduce pain and inflammation in the tendon. 5. Corticosteroid Injections: If the pain is more severe, a steroid injection can reduce inflammation in the shoulder and provide relief for a longer period. 6. Platelet-Rich Plasma (PRP) Injection: This treatment involves using your own blood to promote healing in the tendon. The plasma is rich in growth factors that can encourage tissue repair. 7. TENS (Transcutaneous Electrical Nerve Stimulation): This therapy uses a smallelectrical current to help manage pain and promote healing by stimulating nerves. (2) Impingement syndrome, shoulder, left: Status: Acute Clinical Quality Measures Falls Risk Screening/Assistive Devices Have you fallen in the past year?: No Ortho Exam General General: Yes no acute distress Neurologic: Yes alert and Yes oriented x3 Psychologic: Yes reasonable and appropriate Left Shoulder Skin/Wound: Yes CDI, No ecchymosis, No erythema and No swelling Testing: Yes Hawkin's, Yes Neer's, No TTP Biceps, No TTP AC Joint, Yes AROM-Forward Elevation 0-180, Yes AROM-External Rotation at 90 0-60, Yes AROM-External Rotation at side 0-60 and Yes empty can 05/16/25 1108 <Electronically signed by Pepe olivas MD> Date _ Pepe Garcia MD Cosigner Signature: Date (if applicable) CC: ~ [facility] Work Phone: [phone] 818-686907-11-2025 Telephone encounter Note* Telephone Encounter - Cipriano Wong MD - 04/15/2025 8:40 AM EDT Noted. [facility]07-11-2025 Miscellaneous Notes* Telephone Encounter - Cipriano Wong MD - 04/15/2025 8:40 AM EDT Noted. documented in [facility] Telephone encounter Note * Telephone Encounter - Cipriano Wong MD - 04/07/2025 6:38 PM EDT Betahistine prescription sent to [facility] [place] [facility]. [facility]07-03-2025 Miscellaneous Notes* Telephone Encounter - Cipriano Wong MD - 04/07/2025 6:38 PM EDT Betahistine prescription sent to [facility] [place] pharmacy. * Telephone Encounter - Rosaura Topete MA - 04/07/2025 5:44 PM EDT Called Marvin and told her that the spironolactone 100mg prescription has been sent to her pharmacy. She said she was taking the spironolactone 100mg when she had the blood work. She had started thaton 03/03/2025. She would like to try the betahistine. She would prefer the [facility] pharm so that way they will mail itto her. Rosaura Topete MA * Telephone Encounter - Cipriano Wong MD - 04/07/2025 5:13 PM EDT Spironolactone 100 mg prescription sent. * Telephone Encounter - Susana Wayne - 04/07/2025 1:49 PM EDT Patient called in wanting to give you an update. Patient states that she increased spironolactone to 100mg like you suggested. She states it took about 3-4 weeks and she dropped it back down to 75 but says that was no good. She states it headed her back into a flare up so she upped it back to 100mgsays its better but not great. Patient would like to know what you want her to do and a new prescription of the spironolactone will be needed. Susana Wayne documented in [facility] Telephone encounter Note * Telephone Encounter - Rosaura Topete MA - 04/07/2025 5:44 PM EDT Called Marvin and told her that the spironolactone 100mg prescription has been sent to her pharmacy. She said she was taking the spironolactone 100mg when she had the blood work. She had started thaton 03/03/2025. She would like to try the betahistine. She would prefer the [facility] pharm so that way they will mail itto her. Rosaura Topete MA [facility]07-03-2025 Telephone encounter Note* Telephone Encounter - Cipriano Wong MD - 04/07/2025 5:13 PM EDT Spironolactone 100 mg prescription sent. [facility]07-03-2025 Telephone encounter Note* Telephone Encounter - Susana Wayne - 04/07/2025 1:49 PM EDT Patient called in wanting to give you an update. Patient states that she increased spironolactone to 100mg like you suggested. She states it took about 3-4 weeks and she dropped it back down to 75 but says that was no good. She states it headed her back into a flare up so she upped it back to 100mgsays its better but not great. Patient would like to know what you want her to do and a new prescription of the spironolactone will be needed. Susana Wayne [facility]06-16-2025 Telephone encounter Note* Telephone Encounter - Faizan Zheng MA - 03/21/2025 11:29 AM EDT Relayed message to patient. She voiced verbal understanding and had no further questions or concerns at this time. Faizan Zheng MA [facility]06-16-2025 Miscellaneous Notes* Telephone Encounter - Faizan Zheng MA - 03/21/2025 11:29 AM EDT Relayed message to patient. She voiced verbal understanding and had no further questions or concerns at this time. Faizan Zheng MA * Telephone Encounter - Cipriano Wong MD - 03/21/2025 11:23 AM EDT She may drop back to the 75 mg spironolactone daily. I ordered a BMP so that we can check to see ifher potassium is low. Ideally she can get that before she drops the spironolactone dose. * Telephone Encounter - Faizan Zheng MA - 03/21/2025 9:22 AM EDT Patient called in stating that she has been having cramping in her legs since increasing her spironolactone medication, she is not sure if her potassium is dropping, she states she has noticed a little improvement with the Meniere's but not much. Faizan Zheng MA documented in this encounterMari[facility]06-[facility]-2025 Telephone encounter Note * Telephone Encounter - Cipriano Wong MD - 03/21/2025 11:23 AM EDT She may drop back to the 75 mg spironolactone daily. I ordered a BMP so that we can check to see ifher potassium is low. Ideally she can get that before she drops the spironolactone dose. [facility]06-16-2025 Telephone encounter Note* Telephone Encounter - Faizan Zheng MA - 03/21/2025 9:22 AM EDT Patient called in stating that she has been having cramping in her legs since increasing her spironolactone medication, she is not sure if her potassium is dropping, she states she has noticed a little improvement with the Meniere's but not much. Faizan Zheng MA [facility]06-08-2025 NoteHNO ID: [id number] Author: CIPRIANO WONG MD Service: ? Author Type: Physician Type: Progress Notes Filed: 03/13/2025 17:21 Note Text: [place]TH[place]AY: Marvin Mariano is a 55 year old, White, female who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 Mariano was seen today for audiometric testing as part of her appointment today with . 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 She feels fullness and pressure in her right ear. PHYSICAL EXAMINATION: Otoscopic inspection revealed ear canals free of cerumen bilaterally TEST RESULTS: Audiometric testing revealed left pure tone thresholds within normal limits and a mild sensorineural hearing loss at 250Hz and 500Hz, rising to normal at 1000Hz and above in the right ear. Speech jewelry internship thresholds agree with pure tone thresholds bilaterally. Speech discrimination testing revealed excellent speech understanding ability bilaterally. Tympanometry revealed normal tympanic membrane mobility and middle ear pressure bilaterally. AUDIOGRAM MAY BE VIEWED IN PROCEDURES RECOMMENDATIONS/PLAN: Dr. Wong will review audiometric test results with the patient. FILEMON Webb documented in this encounterMari[facility]11-04-[facility]24 Telephone encounter Note * Telephone Encounter - Faizan Zheng MA - 08/09/2024 4:43 PM EST Relayed message to patient. She voiced verbal understanding and had no further questions or concerns at this time. Faizan Zheng MA [facility]11-04-2024 Miscellaneous Notes* Telephone Encounter - Faizan Zheng MA - 08/09/2024 4:43 PM EST Relayed message to patient. She voiced verbal understanding and had no further questions or concerns at this time. Faizan Zheng MA * Telephone Encounter - Faizan Zheng MA - 08/09/2024 2:28 PM EST Pt called in stating that she still has two weeks left of the medication and it has one refill remaining. She states that she is doing better on the higher dose, but does still have some of the tinnitus and intermittent ear pressure, but over all its better. States she did have her blood work done on Friday. Faizan Zheng MA * Telephone Encounter - Rosaura Topete MA - 08/05/2024 5:01 PM EDT LM for pt to return my call regarding the refill request for spironolactone. Dr Wong would like to know if the pt would like the refill, does she feel the medicine is working? Rosaura Topete MA * Telephone Encounter - Rashmi Leal - 08/05/2024 1:36 PM EDT Pharmacy requesting 90 day supply. Rashmi Leal documented in this encounterM[facility]11-04-2024 Telephone encounter Note * Telephone Encounter - Faizan Zheng MA - 08/09/2024 2:28 PM EST Pt called in stating that she still has two weeks left of the medication and it has one refill remaining. She states that she is doing better on the higher dose, but does still have some of the tinnitus and intermittent ear pressure, but over all its better. States she did have her blood work done on Friday. Faizan Zheng MA [facility]10-31-2024 Telephone encounter Note* Telephone Encounter - Rosaura Topete MA - 08/05/2024 5:01 PM EDT LM for pt to return my call regarding the refill request for spironolactone. Dr Wong would like to know if the pt would like the refill, does she feel the medicine is working? Rosaura Topete MA [facility]10-31-2024 Telephone encounter Note* Telephone Encounter - Rashmi Leal - 08/05/2024 1:36 PM EDT Pharmacy requesting 90 day supply. Rashmi Leal [facility]10-20-2024 NoteHNO ID: [id number] Author: CIPRIANO WONG MD Service: ? Author Type: Physician Type: Progress Notes Filed: 07/25/2024 11:47 Note Text: [place]: Marvin Mariano is a 54 year old, White, female who presents, I am here about my Meniere's/hydrops. A year ago April she had a URI which resolved. She then noticed a sense of right ear fullness and mild right hearing loss. She also has intermittent right HF tone tinnitus. She does not have actual dizziness but she does have a lot of motion sickness. She saw [facility] and was diagnosed with cochlear hydrops. She was treated with oral steroids, antibiotics, and Claritin-D. This did not change her symptoms. She tried Maxzide but needed potassium supplementation. She felt like it helped for the first month or so but then she had a symptom flare. She went to the ED and was treated with oral prednisone which helped for a short time but her symptoms returned. She tried hydrochlorothiazide which also significantly lowered her potassium. She was changed to spironolactone 25 mg daily and potassium 20 mill equivalents/day 04/17/2024. She still has symptoms. She did have an MRI which was negative. She went on vacation and had no symptoms while on vacation but her symptoms returned when she got back. She does do a low caffeine/low salt diet. SUBJECTIVE: I reviewed the allergies, medications, problem list, PMH/PSH, FmHx and SocHx as documented in Epic chart. PHYSICAL EXAM: VS: BP 110/60 Pulse 68 Resp 16 Ht 167.6 cm (5' 6) Wt 79.8 kg (176 lb) BMI 28.41 kg/m? CONST/MS: The patient appears to be in NAD and has a normal voice quality. H/F/N: The facial motion is overall normal. There are no palpable salivary gland, thyroid or neck masses. Ears: The external ears and canals are without lesions. Each TM is intact and mobile on pneumatic otoscopy. Nose: The external nose has a left alar piercing. The nasal mucosa appears healthy on nasal speculum exam. The septum has right deviation. The IT are not hypertrophic. OC/OP: The lips and gums are without lesions. The tongue/oral mucosa is healthy. The hard/soft palate, tonsil fossa and posterior pharynx are without lesions. The teeth have some crowns and fillings. DELI CUTTER SLICER: The mirror exam is without obvious lesions. HP/LX: The mirror exam is without obvious lesion hypopharynx but the epiglottis blocked view of the larynx. OBJECTIVE: I reviewed an outside audiogram 05/29/2023 which showed the left side normal and the right side mild SNHL at 250 and 500 Hz. Word scores 100. Tympanograms normal peaks. I reviewed an outside audiogram 05/28/2024 which showed left mild SNHL and right LF moderate sloping up to HF mild SNHL. I reviewed a brain MRI report 01/29/2024 which showed no tumor. ASSESSMENT AND PLAN: I counseled the patient about the differential diagnosis, natural course, treatment options and answered their questions for all diagnoses and orders: 1. 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 Ear pressure, right - ICD9: 388.8, ICD10: H93.8X1 3. Sensorineural hearing loss (SNHL) of right ear with restricted hearing of left ear - ICD9: 389.22, ICD10: H90.A21 4. Hypokalemia - ICD9: 276.8, ICD10: E87.6 I counseled her we could increase his spironolactone dose. A prescription for spironolactone 50 mg #30, 1 RF was sent. She was counseled to get a BMP in 2 weeks as we may need to increase her potassium dose. We could consider Diamox. She was counseled to come in sooner if there are problems. Return in about 3 months (around 10/13/2024) for Ears, cochlear hydrops. Cipriano Wong MD 50 minutes Total time including preparation, obtaining/reviewing history, exam, interpreting results, ordering, counseling/education, referring/communicating and documentation. Created using voice recognition software, some errors may have occurred. Corrections may be performed at a later date.[facility] 07-25-2024 History of Present illness Narrative* Cipriano Wong MD - 07/25/2024 11:39 AM EDT [place]: Marvin Mariano is a 54 year old, White, female who presents, I am here about my M ni re's/hydrops. A year ago April she had a URI which resolved. She then noticed a sense of right ear fullness and mild right hearing loss. She also has intermittent right HF tone tinnitus. She does not have actual dizziness but she does have a lot of motion sickness. She saw [facility] and was diagnosed with c ochlear hydrops. She was treated with oral steroids, antibiotics, and Claritin- D. This did not change her symptoms. She tried Maxzide but needed potassium supplementation. She felt like it helped forthe first month or so but then she had a symptom flare. She went to the ED and was treated with oral prednisone which helped for a short time but her symptoms returned. She tried hydrochlorothiazide which also significantly lowered her potassium. She was changed to spironolactone 25 mg daily and potassium 20 mill equivalents/day 04/17/2024. She still has symptoms. She did have an MRI which was negative. She went on vacation and had no symptoms while on vacation but her symptoms returned when shegot back. She does do a low caffeine/low salt diet. SUBJECTIVE: I reviewed the allergies, medications, problem list, PMH/PSH, FmHx and SocHx as documented in Epic chart. PHYSICAL EXAM: VS: BP 110/60 Pulse 68 Resp 16 Ht 167.6 cm (5' 6) Wt 79.8 kg (176 lb) BMI 28.41 kg/m CONST/MS: The patient appears to be in NAD and has a normal voice quality. H/F/N: The facial motion is overall normal. There are no palpable salivary gland, thyroid or neck masses. Ears: The external ears and canals are without lesions. Each TM is intact and mobile on pneumatic otoscopy. Nose: The external nose has a left alar piercing. The nasal mucosa appears healthy on nasal speculum exam. The septum has right deviation. The IT are not hypertrophic. OC/OP: The lips and gums are without lesions. The tongue/oral mucosa is healthy. The hard/soft palate, tonsil fossa and posterior pharynx are without lesions. The teeth have some crowns and fillings. DELI CUTTER SLICER: The mirror exam is without obvious lesions. HP/LX: The mirror exam is without obvious lesion hypopharynx but the epiglottis blocked view of thelarynx. OBJECTIVE: I reviewed an outside audiogram 05/29/2023 which showed the left side normal and the right side mildSNHL at 250 and 500 Hz. Word scores 100. Tympanograms normal peaks. I reviewed an outside audiogram 05/28/2024 which showed left mild SNHL and right LF moderate slopingup to HF mild SNHL. I reviewed a brain MRI report 01/29/2024 which showed no tumor. ASSESSMENT & PLAN: I counseled the patient about the differential diagnosis, natural course, treatment options and answered their questions for all diagnoses and orders: 1. 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 Ear pressure, right - ICD9: 388.8, ICD10: H93.8X1 3. Sensorineural hearing loss (SNHL) of right ear with restricted hearing of left ear - ICD9: 389.22, ICD10: H90.A21 4. Hypokalemia - ICD9: 276.8, ICD10: E87.6 I counseled her we could increase his spironolactone dose. A prescription for spironolactone 50 mg #30, 1 RF was sent. She was counseled to get a BMP in 2 weeks as we may need to increase her potassium dose. We could consider Diamox. She was counseled to come in sooner if there are problems. Return in about 3 months (around 10/13/2024) for Ears, cochlear hydrops. Cipriano Wong MD 50 minutes Total time including preparation, obtaining/reviewing history, exam, interpreting results, ordering, counseling/education, referring/communicating and documentation. Created using voice recognition software, some errors may have occurred. Corrections may be performed at a later date. [facility] Instructions* Patient Instructions* Cipriano Wong MD - 07/13/2024 4:06 PM EDT Continue diet changes and eating high potassium food. Get lab work in a couple of weeks. Let us know if the higher dose of spironolactone is helping or not. We might consider changing to a different diuretic. documented in this encounterM[facility] HospitalEvaluation + Plan note No data available for this section [facility] Evaluation noteNo assessment information available [facility] Work Phone: Evaluation note* Diagnosis Onset Date Resolution Status Impingement syndrome, shoulder, left acute Impingement syndrome, shoulder, left acute [facility] Work Phone: Evaluation note* Diagnosis Onset Date Resolution Status Impingement syndrome, shoulder, left acute [facility] Work Phone: Evaluation note* Diagnosis Cochlear hydrops of right ear Ear pressure, right Sensorineural hearing loss (SNHL) of right ear with restricted hearing of left ear Hypokalemia Hypopotassemia [facility]* Diagnosis Hypokalemia Hypopotassemia [facility]* Diagnosis Sensorineural hearing loss (SNHL) of right ear with unrestricted hearing of left ear- Primary [facility]* Diagnosis Cochlear hydrops of right ear Hypokalemia Hypopotassemia [facility]* Diagnosis Cochlear hydrops of right ear Ear pressure, right Sensorineural hearing loss (SNHL) of right ear with restricted hearing of left ear Hypokalemia Hypopotassemia documented [facility]* Diagnosis Cochlear hydrops of right ear Sensorineural hearing loss (SNHL) of right ear with unrestricted hearing of left ear Ear pressure, right Tinnitus, right Unspecified tinnitus [facility]* Diagnosis Asymmetrical sensorineural hearing loss- Primary Sensorineural hearing loss, asymmetrical Meniere's disease, right [facility]* Diagnosis Onset Date Resolution Status Admit Date Impingement syndrome, should er, left acute March 03, 2025 1 0:54am Left rotator cuff tear acute 2024 10:54am [facility] Work Phone: Evaluation note* Diagnosis Meniere's disease, right Otalgia, right Ear pressure, right Tinnitus, right Unspecified tinnitus Sensorineural hearing loss (SNHL) of right ear with unrestricted hearing of left ear [facility] encounter [facility]* Diagnosis Hypokalemia Hypopotassemia [facility] Additional Instructions Take prednisone as prescribed. If feeling dizzy, sit or lay down to avoid injury. Call Dr. Saldivar's office for follow-up including possible MRI.[facility] Work Phone: Reazfw for referral (narrative)No reason for referral information availableWSelect [facility] Work Phone: Reason for referral (narrative)* Consult, Test, Treat (Routine) - New Request Specialty Diagnoses / Procedures Referred By Contac t Referred To Contact Procedures HEARING TEST/AUDIOGRAM COMPRE AUDIOMETRY THRESHOLD SUPAAL Julien Montilla, AUD [address] [place] [address] Phone: tel: fax: [facility] [address] [place] [phone] Referral ID Status Reason Start Date Expiration Date Visits Requested Visits Authorized [id number] New Request Auto-Generat ed Referral 03/02/2025 03/03/2026 1 1 [facility] Summary Purpose Family History No Family History Records Found Relationship Condition Age at Onset Recorded Date/T trisha mother Malignant neoplasm of breast Unknown Arthritis Unknown Depression Unknown Hypertension Unknown High blood cholesterol Unknown Advance Directives No Advanced Directives Records Found Advance Directive Response Recorded Date/ Time Living Will No January 06, 2024 1:29pm Power of Veterinary Technician No January 05 1:29pm Chief Complaint and Reason for Visit Chief Complaint XRAY LEFT SHOULDER P AIN Chief Complaint PINCH NERVE LEFT SHOULDER LEFT SHOULDER SCREENING LT BREAST ABN MAMM Reason for Visit Impingement syndrome , shoulder, left Impingement syndrome, shoulder, left Chief Complaint Asymptomatic [place] Chief Complaint left shoulder SCREENING Reason for Visit Impingement syndrome , shoulder, left Chief Complaint SCREENING Chief Complaint SCREENING HEAD PRESSURE Chief Complaint HEAD PRESSURE Chief Complaint HEAD PRESSURE RT EAR HEARING LOSS Chief Complaint Admit Date SCREEN October 25, 2024 9 :10am Chief Complaint Admit Date LEFT SHOULDER March 03, 2025 10:54 am Reason for Visit Admit Date Impingement syndrome, shoulder, left March 03, 2025 10:54am Left rotator cuff tear March 03, 2025 10 :54am Chief Complaint Admit Date LEFT SHOULDER March 03, 2025 10:54 am LEFT SHOULDER May 16, 2025 10 :41am Reason for Visit Admit Date Impingement syndrome, shoulder, left March 03, 2025 10:54am Left rotator cuff tear March 03, 2025 10 :54am Impingement syndrome, shoulder, left Aug us2024 10:41am Left rotator cuff tear May 16, 2025 10:41am Reason for Referral Specialty Diagnoses / Procedures Referred By Contac t Referred To Contact Procedures HEARING TEST/AUDIOGRAM COMPRE AUDIOMETRY THRESHOLD EVAL SP ARIJ Julien Becerra, AUD [address] [place] [address] [facility] [address] [place] [address] Referral ID Status Reason Start Date Expiration Date Visits Requested Visits Authorized [id number] New Request Auto-Generat ed Referral 10/14/2024 10/15/2025 1 1 Additional Source Comments INFORMATION SOURCE (unrecogn ized section and content) DATE CREATED AUTHOR 03/31/2018 [facility] DATE CREATED AUTHOR AUTHOR'S ORGANIZ ATION 11/25/2018 [facility] DATE CREATED AUTHOR AUTHOR'S ORGANIZ ATION 11/25/2018 [employer] DATE CREATED AUTHOR AUTHOR'S ORGANIZ ATION 11/26/2024 [facility] DATE CREATED AUTHOR AUTHOR'S ORGANIZ ATION 03/23/2025 [facility] DATE CREATED AUTHOR AUTHOR'S ORGANIZ ATION 04/10/2025 [facility] DATE CREATED AUTHOR AUTHOR'S ORGANIZ ATION 05/18/2025 [facility] Goals (unrecognized section and content) Goals may be documented in a n alternate sectionGoals may be documented in an alternate sectionGoals may be documented in an alternate sectionGoals may be documented in an alternate sectionGoals may be documented in an alternate sectionGoals may be documented in an alternate sectionGoals may be documented in an alternate sectionGoals may be documented in an alternate sectionGoals may be documented in an alternate sectionGoals may be documented in an alternate sectionGoals may be documented in an alternate section No data available for this sectionGoals may be documented in an alternate sectionGoals may be documented in an alternate sectionGoals may be documented in an alternate section Care Teams (unrecognized sec tion and content) Team Status: Active Member Role Status Dates Dr. Dirk Delgado MD Family Provider Active Dr. Dirk Delgado MD Primary Care Provider Active Team Status: Inactive Member Role Status Dates Dr. Dirk Delgado MD Primary Care Provi elena, Attending Provider, Referring Provider Active Team Status: Inactive Member Role Status Dates Dr. Dirk Delgado MD Primary Care Provider, Attending Provider Active Team Status: Inactive Member Role Status Dates Dr. Dirk Delgado MD Primary Care Provider, Referring Provider Active Pepe Garcia MD Attending Provider Active Team Status: Inactive Member Role Status Dates Dr. Dirk Delgado MD Primary Care Provider Active Dr. Aleksandar Cason MD Emergency Provider Active Team Status: Inactive Member Role Status Dates Dr. Dirk Delgado MD Primary Care Provider Active Dr. Aleksandar Cason MD Attending Provider, Emergency Provi elena Active Team Status: Active Member Role Status Dates Dr. Dirk Delgado MD Primary Care Provider Active Dr. Enrique Saldivar MD Attending Provider, Referring Pr ovider Active Team Status: Inactive Member Role Status Dates Dr. Dirk Delgado MD Primary Care Provider Active Dr. Enrique Saldivar MD Attending Provider, Referring Pr ovider Active Assistant Food Service Manager Relationship Specialty Start Date End Date Dirk Delgado MD [address] [facility] [address] [place] [address] PCP - General Family Medicine 07/13/24 Assistant Food Service Manager Relationship Specialty Start Date End Date Dirk Delgado MD [address] [facility] [address] [place] [address] PCP - General Family Medicine 07/13/24 Assistant Food Service Manager Relationship Specialty Start Date End Date Dirk Delgado MD [address] [facility] [address] [place] [address] PCP - General Family Medicine 07/13/24 Assistant Food Service Manager Relationship Specialty Start Date End Date Dirk Delgado MD [address] [facility] [address] [place] [address] PCP - General Family Medicine 07/13/24 Assistant Food Service Manager Relationship Specialty Start Date End Date Dirk Delgado MD [address] [facility] [address] [place] [address] PCP - General Family Medicine 07/13/24 Team Status: Inactive Member Role Status Dates Dr. Dirk Delgado MD Primary Care Provider Active Start: October 25, 2024 End: October 25, 2024 Dr. Dirk Delgado MD Attending Provider Active Start: October 25, 2024 End: October 25, 2024 Dr. Dirk Delgado MD Referring Provider Active Start: October 25, 2024 End: October 25, 2024 Team Status: Inactive Member Role Status Dates Dr. Dirk Delgado MD Primary Care Provider Active Start: December 22, 2024 End: December 22, 2024 Dr. Dirk Delgado MD Attending Provider Active Start: December 22, 2024 End: December 22, 2024 Dr. Dirk Delgado MD Referring Provider Active Start: December 22, 2024 End: December 22, 2024 Assistant Food Service Manager Relationship Specialty Start Date End Date Dirk Delgado MD [address] [facility] [address] [place] [address] PCP - General Family Medicine 07/13/24 Assistant Food Service Manager Relationship Specialty Start Date End Date Dirk Delgado MD [address] [facility] [address] [place] [address] PCP - General Family Medicine 07/13/24 Assistant Food Service Manager Relationship Specialty Start Date End Date Dirk Delgado MD [address] [facility] [address] [place] [address] PCP - General Family Medicine 07/13/24 Team Status: Active Member Role Status Dates Dr. Dirk Delgado MD Primary Care Provider Active Team Status: Inactive Member Role Status Dates Dr. Dirk Delgado MD Primary Care Provider Active Start: March 03, 2025 End: March 03, 2025 Dr. Dirk Delgado MD Referring Provider Active Start: March 03, 2025 End: March 03, 2025 Pepe Garcia MD Attending Provider Active St art: March 03, 2025 End: March 03, 2025 Assistant Food Service Manager Relationship Specialty Start Date End Date Dirk Delgado MD [address] [facility] [address] [place] [address] PCP - General Family Medicine 07/13/24 Assistant Food Service Manager Relationship Specialty Start Date End Date Dirk Delgado MD [address] [facility] [address] [place] [address] PCP - General Family Medicine 07/13/24 Assistant Food Service Manager Relationship Specialty Start Date End Date Dirk Delgado MD [address] [place] [address] PCP - General Family Medicine 07/13/24 Team Status: Active Member Role/Relationship Status Dates Dr. Dirk Delgado MD Primary Care Provider Active Team Status: Inactive Member Role/Relationship Status Dates Dr. Dirk Delgado MD Primary Care Provider Active Start: March 03, 2025 End: March 03, 2025 Dr. Dirk Delgado MD Referring Provider Active Start: March 03, 2025 End: March 03, 2025 Pepe Garcia MD Attending Provider Active St art: March 03, 2025 End: March 03, 2025 Team Status: Inactive Member Role/Relationship Status Dates Dr. Dirk Delgado MD Primary Care Provider Active Start: May 16, 2025 End: May 16, 2025 Dr. Dirk Delgado MD Referring Provider Active Start: May 16, 2025 End: May 16, 2025 Pepe Garcia MD Attending Provider Active St art: May 16, 2025 End: May 16, 2025 Source Comments (unrecognize d section and content) In the event this informatio n is protected by the Federal Confidentiality of Alcohol and Drug Abuse Patient Records regulations: The Federal rules restrict any use of the information to criminally investigate or prosecute any alcohol or drug abuse patient.[facility] the event this information is protected by the Federal Confidentiality of Alcohol and Drug Abuse Patient Records regulations: The Federal rules restrict any use of the information to criminally investigate or prosecute any alcohol or drug abuse patient.[facility] HospitalIn the event this information is protected by the Federal Confidentiality of Alcohol and Drug Abuse Patient Records regulations: The Federal rules restrict any use of the information to criminally investigate or prosecute any alcohol or drug abuse patient.[facility] the event this information is protected by the Federal Confidentiality of Alcohol and Drug Abuse Patient Records regulations: The Federal rules restrict any use of the information to criminally investigate or prosecute any alcohol or drug abuse patient.[facility] HospitalIn the event this information is protected by the Federal Confidentiality of Alcohol and Drug Abuse Patient Records regulations: The Federal rules restrict any use of the information to criminally investigate or prosecute any alcohol or drug abuse patient.[facility] HospitalIn the event this information is protected by the Federal Confidentiality of Alcohol and Drug Abuse Patient Records regulations: The Federal rules restrict any use of the information to criminally investigate or prosecute any alcohol or drug abuse patient.[facility] Hospital[facility] the event this information is protected by the Federal Confidentiality of Alcohol and Drug Abuse Patient Records regulations: The Federal rules restrict any use of the information to criminally investigate or prosecute any alcohol or drug abuse patient.[facility] HospitalIn the event this information is protected by the Federal Confidentiality of Alcohol and Drug Abuse Patient Records regulations: The Federal rules restrict any use of the information to criminally investigate or prosecute any alcohol or drug abuse patient.[facility] HospitalIn the event this information is protected by the Federal Confidentiality of Alcohol and Drug Abuse Patient Records regulations: The Federal rules restrict any use of the information to criminally investigate or prosecute any alcohol or drug abuse patient.[facility] HospitalIn the event this information is protected by the Federal Confidentiality of Alcohol and Drug Abuse Patient Records regulations: The Federal rules restrict any use of the information to criminally investigate or prosecute any alcohol or drug abuse patient.[facility] the event this information is protected by the Federal Confidentiality of Alcohol and Drug Abuse Patient Records regulations: The Federal rules restrict any use of the information to criminally investigate or prosecute any alcohol or drug abuse patient.[facility] HospitalIn the event this information is protected by the Federal Confidentiality of Alcohol and Drug Abuse Patient Records regulations: The Federal rules restrict any use of the information to criminally investigate or prosecute any alcohol or drug abuse patient.[facility] HospitalIn the event this information is protected by the Federal Confidentiality of Alcohol and Drug Abuse Patient Records regulations: The Federal rules restrict any use of the information to criminally investigate or prosecute any alcohol or drug abuse patient.[facility] the event this information is protected by the Federal Confidentiality of Alcohol and Drug Abuse Patient Records regulations: The Federal rules restrict any use of the information to criminally investigate or prosecute any alcohol or drug abuse patient.[facility] Reason for Visit (unrecogniz ed section and content) Reason Comments Ear Problem Cochlear hydrops--ri ght ear fullness, pressure in mastoid bone Reason Comments Med Change Request Reason Comments Pressure In Ear(s) Fullness In Ear(s) Reason Comments Results, Lab Reason Comments Follow Up Right ear Reason Comments Follow Up she has improvement Reason Comments Patient Question Reason Comments Ear Pain Pressure In Ear(s) Hearing Loss Vertigo Reason Comments Follow Up Right ear, pressure, pain in mastoid, jaw and down neck Reason Comments Patient Update Reason Comments Medication Request Patient Update FOR RECORDS PERTAINING TO PATIENTS WHO ARE OR HAVE BEEN ENROLLED IN A CHEMICAL DEPENDENCY/SUBSTANCEABUSE PROGRAM, SOME INFORMATION MAY BE OMITTED. This clinical summary was aggregated from multiple sources. Caution should be exercised in using it in the provision of clinical care. This summary normalizes information from multiple sources, and as a consequence, information in this document may materially change the coding, format and clinical context of patient data. In addition, data may be omitted in some cases. CLINICAL DECISIONS SHOULD BE BASED ON THE PRIMARY CLINICAL RECORDS. [facility]. provides no warranty or guarantee of the accuracy or completeness of information in this document.
--- NOTE | 2025-06-15 10:50 | NEURO ---
NCS and/or EMG Patient Report Ordering Doctor: Dirk Hayes DATE OF SERVICE: 06/15/25 Cristine presents with complaints of frequent muscle cramps in the lower legs, worse on the left side. Electrodiagnostic findings: Peroneal motor nerve demonstrates normal distal latency, amplitude and conduction velocity bilaterally. Normal tibial motor response bilaterally. Normal tibial and peroneal F-waves. H?reflex within normal limits bilaterally. Sensory responses are normal. Needle EMG testing was performed in the lower limbs. All muscles tested showed no evidence of denervation with normal motor unit action potentials. Electrodiagnostic impression: Is a normal electrodiagnostic study of the lower limbs. There is no electrodiagnostic evidence for peripheral polyneuropathy or lumbosacral radiculopathy. Multi Select Codes Neurology Neurology Interp Codes: 87714-72 Musc test done w/n test comp (interp) (2) and 78486-19 Nrv cndj test 9-10 studies (interp)
== END | disposition home or self-care (01) ==
PROVIDERS: PCP Family Medicine; Referring Provider Family Medicine; Visit Provider Family Medicine
DX: G57.93 Unspecified mononeuropathy of bilateral lower limbs (principal)
CPT/HCPCS: 95886; 95911

== ENCOUNTER 2025-07-20 06:17 | Day surgery (SDC) | payer BC, SELFPAY ==
--- NOTE | 2025-07-07 13:15 | EKG12_ITS ---
Test Reason : PREOP Blood Pressure : */* mmHG Vent. Rate : 72 BPM Atrial Rate : 72 BPM P-R Int : 144 ms QRS Dur : 70 ms QT Int : 388 ms P-R-T Axes : 57 -6 49 degrees QTcB Int : 424 ms Normal sinus rhythm Normal ECG Confirmed by Edgardo Mace ([id number]), manager editorial GRABIEL AUGUSTINE ([id number]) on 07/08/2025 7:21:37 AM Referred By: Pepe Garcia Confirmed By: Edgardo Mace
[2025-07-07 14:54] LABS: Anion Gap 13 (5-15); BUN 8 mg/dL (4-19); BUN/Creat Ratio 9.3 RATIO (10-20); Calcium,Total 9.7 mg/dL (7.6-11.0); Carbon Dioxide 24.8 mmol/L (21.0-32.0); Chloride 101 mmol/L (98-108); Glucose 90 mg/dL (70-99); Potassium 4.4 mmol/L (3.3-5.1)
[2025-07-20] VITALS (13 sets, daily range): BP systolic 93–108; BP diastolic 64–75; PULSE 69–97; RESP 16–18; TEMP 36.1–36.6; O2SAT 94–99; BMI 27.3
--- NOTE | 2025-07-20 07:14 | HP.PCM_ITS ---
HPI - General HPI Narrative MARVIN MARIANO, is a 55 F who presents for left shoulder arthroscopy, subacromial decompression, rotator cuff repair. no change to h and p. left shoulder marked. rab, post op instructions, narcotic counselling. ok to proceed. MR#: [id number] Acct: [id number] Name: MARVIN MARIANO Rep #: [id number] : 1970 Provider: Dr. Pepe Garcia MD Age/Sex: 55/F Location: [facility] [place] Status: Signed Intake Vital Signs 01/05/2413:01 05/16/2510:52 Height 5 ft 6 in 5 ft 6 in Weight: 170 lb BMI 27.4 Intake Visit Reasons: LEFT SHOULDER Chief Complaint: left shoulder discuss about surgery Accompanied by: Self Is patient in pain?: No Allergies bupropion (From Wellbutrin) Allergy (Mild, Verified 05/16/25 10:55) Itching Medications ?Medication ?Instructions ?Recorded ?Confirmed ?Type fluticasone propionate 50 gm intranasal 05/24/22 05/16/25 History mcg/actuation nasal spray,suspension prednisone 10 mg tablet 10 mg PO UD #33 tabs 01/06/24 05/16/25 R x zolpidem 5 mg tablet 5 mg PO DAILY Insomnia 05/20/24 05/16/25 History potassium chloride 20 mEq 20 meq PO ONCE Hypokalemia 08/16/2405/06 History tablet,extended release 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 5 05/16/25 History betahistine (bulk) 100 % powder ea miscellaneous 05/16/25 05/16/25 History Have you fallen in the past year?: No PFSH Medical History Left rotator cuff tear FH: cholecystectomy IBS (irritable bowel syndrome) Gallstones History of back problems Seasonal allergies Surgical History History of lumbar surgery Hx of section History of hysterectomy Family History Mother Breast cancer Arthritis Depression Hypertension High cholesterol Social History Smoking Status: Former smoker alcohol intake: never substance use type: does not use HPI LEFT SHOULDER Details: This documentation accurately reflects the service provided and the decisions made by me, Dr. Pepe Garcia MD 05/16/25 1018. Part of today?s visit was documented by [ ], acting as scribe. MARVIN MARIANO is a 55 year old F here today for FU L shoulder pain. 2 injections now, last one 2 months ago. Has PASTA SS tear. injection still working well. Supplemental Info MRI/Upper Ext Joint Only(Routine) IMPRESSION: Low to moderate grade partial-thickness articular sided tearing of the anterior fibers of supraspinatus tendon with failure at the footprint. Subacromial/subdeltoid bursitis. Low-grade partial-thickness tearing involving the supraspinatus tendon. Electronically Signed: Vikram Drew MD at 22:50 EDT Coding Level of Care Code Off vis,est,level 4 Diagnoses Left rotator cuff tear M75.102 Impingement syndrome, shoulder, left M75.42 Assessment and Plan Assessment and Plan (1) Left rotator cuff tear: Status: Acute Plan: MARVIN MARIANO is a 55 year old F here today for FU L shoulder pain. 2 injections now, last one 2 months ago. Has PASTA SS tear. Patient would like to proceed with surgery we have discussed this prior. Recovery 2 weeks in a sling 6 weeks gentle range of motion and after 3 to 6 months before going back to heavy lifting pushing and pulling. Patient understands wants to go ahead with left shoulder arthroscopy, subacromial decompression, rotator cuff repair. Pros and cons risks and benefits were discussed with the patient including but not limited to infection, pain, stiffness, bleeding, damage to surrounding structures, neurovascular injury, recurrence or retear, failure or wear of hardware or fixation, instability, fracture, deep vein thrombosis and pulmonary embolism, anesthetic risks, , patient dissatisfaction, need for further surgery and other risks. Patient understood and wished to proceed with surgery, and signed the informed consent documentation. Patient counselled on non-operative and operative means of treating shoulder pain. Conservative options include but not limited to: 1. Rest and Activity Modification: Giving your shoulder time to heal by avoiding movements that cause pain can help. This may involve limiting overhead activities or heavy lifting. 2. Physical Therapy: A physical therapist can guide you through exercises that strengthen the muscles around the shoulder, improve flexibility, and reduce strain on the rotator cuff tendon. 3. Ice and Heat Therapy: Applying ice to the shoulder can help reduce swelling and pain, especially after activity. Heat can be helpful to relax tense muscles and improve blood flow before exercises. 4. Anti-Inflammatory Medications: Dkqy-kxz-elsgkfk medications like ibuprofen or naproxen can help reduce pain and inflammation in the tendon. 5. Corticosteroid Injections: If the pain is more severe, a steroid injection can reduce inflammation in the shoulder and provide relief for a longer period. 6. Platelet-Rich Plasma (PRP) Injection: This treatment involves using your own blood to promote healing in the tendon. The plasma is rich in growth factors that can encourage tissue repair. 7. TENS (Transcutaneous Electrical Nerve Stimulation): This therapy uses a small electrical current to help manage pain and promote healing by stimulating nerves. (2) Impingement syndrome, shoulder, left: Status: Acute Clinical Quality Measures Falls Risk Screening/Assistive Devices Have you fallen in the past year?: No Ortho Exam General General: Yes no acute distress Neurologic: Yes alert and Yes oriented x3 Psychologic: Yes reasonable and appropriate Left Shoulder Skin/Wound: Yes CDI, No ecchymosis, No erythema and No swelling Testing: Yes Hawkin's, Yes Neer's, No TTP Biceps, No TTP AC Joint, Yes AROM- Forward Elevation 0-180, Yes AROM-External Rotation at 90 0-60, Yes AROM- External Rotation at side 0-60 and Yes empty can [facility] Medical History (Updated 07/06/25 @ 08:36 by Maria Elena Lozano) Loss of hearing Wears glasses Former smoker Non-smoker Left rotator cuff tear FH: cholecystectomy IBS (irritable bowel syndrome) Gallstones History of back problems Seasonal allergies Home Medications ?Medication ?Instructions ?Recorded ?Last Taken ?Type fluticasone propionate 50 1 spray intranasal DAILY PRN 05/24/22 Unknown History mcg/actuation nasal allergy symptoms spray,suspension zolpidem 5 mg tablet 5 mg PO QHS Insomnia 05/20/ 4 07/19/25 History potassium chloride 20 mEq 20 meq PO ONCE Hypokalemia 1 10/16/23 07/19/25 History tablet,extended release spironolactone 25 mg tablet 100 mg PO DAILY Menieres d isease 03/03/25 07/19/25 History betahistine (bulk) 100 % powder 1 ea miscellaneous TID 05/16/25 07/19/25 History fezolinetant 45 mg tablet (Veozah) 45 mg PO DAILY 10/3007/19/25 History gabapentin 300 mg capsule 300 mg PO QHS 07/06/2507/19 History prednisone 10 mg tablet 10 mg PO UD PRN MENIERES 10/30 Unknown History semaglutide 0.25 mg or 0.5 mg (2 0.25 mg subcut TH 10/3007/07/25 History mg/3 mL) subcutaneous pen injector Allergy/AdvReac Type Severity Reaction Status Date / Time bupropion (From Wellbutrin) Allergy Mild Itching Verified 07/20/25 07:00 Family History Mother Breast cancer Arthritis Depression Hypertension High cholesterol Surgical History (Updated 07/06/25 @ 08:36 by Maria Elena Lozano) History of colonoscopy History of lumbar surgery Hx of section History of hysterectomy Social History Smoking Status: Former smoker alcohol intake: never substance use type: does not use Vital Signs Vital Signs Vital Signs: 07/20/25 07:03 07/20/25 07:03 Temperature 97.9 F Temperature Source Temporal Pulse Rate 76 Respiratory Rate 18 Respiratory Pattern Normal Blood Pressure 105/75 Blood Pressure Mean 85 Blood Pressure Source Monitor Blood Pressure Position Semi-Fowlers Blood Pressure Location Left Arm Pulse Ox 99 Oxygen Delivery Method Room Air Weight Weight: 169 lb 12.095 oz Body Mass Index (BMI) 27.3 Results Lab / Micro Data 07/07/25 13:34
[2025-07-20] MEDS: Lactated Ringers 1,000 ML 15 ML IV (07:16)
--- NOTE | 2025-07-20 07:26 | PCM.PRE.AN2 ---
ASA Classification* ASA Classification ASA Classification: 2 Assessment & Plan Anesthesia* Anesthesia Assessment Anesthesia Assessment: Discussed sedation and/or anesthesia options, risks, benefits, and alternatives with patient/parents/legal guardian/POA. Questions invited. The patient/parents/legal guardian/POA seems to understand and agrees to proceed with anesthesia plan. Reviewed the physical assessment, medical history, allergy history and patient home medications list prior to surgery/procedure/anesthetic and documented any changes. Performed airway and anesthesia risk assessments. Anesthesia Type Anesthesia Type: General and Block History Source History Obtained from:: Patient Anesthesia Focused Assessment* Temperature: 97.9 F Pulse Rate: 76 Blood Pressure: 105/75 Respiratory Rate: 18 Pulse Ox: 99 Oxygen Delivery Method: Room Air Airway Assessment Mouth opens: >3 cm Mallampati Score: II Teeth Condition: Intact Neck Range of motion (ROM): Full ROM Labs Anesthesia Preop lab: CBC WBC, (4.4-11.0) 6.3 K/mm3 01/25/22, 14:39 RBC, (4.2-5.4) 4.41 M/mm3 01/25/22, 14:39 Hgb, (12.0-15.0) 13.1 g/dL 01/25/22, 14:39 Hct, (37-47) 40.9 % 01/25/22, 14:39 Plt Count, (150-450) 341 K/mm3 01/25/22, 14:39 CHEMISTRY Potassium, (3.3-5.1) 4.4 mmol/L 07/07/25, 13:34 Sodium, (133-145) 138 mmol/L 07/07/25, 13:34 Magnesium, (1.5-2.2) 2.1 mg/dL 12/22/24, 16:50 BUN, (4-19) 8 mg/dL 07/07/25, 13:34 Creatinine, (0.70-1.20) 0.81 mg/dL 07/07/25, 13:34 Glucose, (70-99) 90 mg/dL 07/07/25, 13:34 TSH, (0.358-3.74) 2.31 uIU/mL 11/24/23, 17:01 COAG PT, (11.9-14.4) 13.4 SECONDS 08/27/13, 07:34 Pre-Assessment Diagnosis/Proposed Procedure Planned Operative Procedure(s): (L) Left shoulder Arthroscopy, subacromial decompression, rotator cuff repair Anesthesia History 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 When Was Last Pacemaker Check QUESTION #4 FULL TEXT: You/Your Family Experience fever (hyperthermia) with Anesthesia Last Oral Intake Last Oral intake: Last Oral Intake NPO since 18:30 07/20/25 07:03 Meds taken in AM with sips of water? 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 Female Yes 07/06/25 08:31 HX of Motion Sickness Yes 07/06/25 08:31 HX of N/V After Surgery No 07/06/25 08:31 Non-Smoker Yes 07/06/25 08:31 Duration of Surgery greater Yes 07/06/25 08:31 than 60 minutes Number of Risk Factors 4 07/06/25 08:31 PONV Score Severe Risk 07/06/25 08:31 Height & Weight Height & Weight: Anesthesia: Height & Weight Height 5 ft 6 in 07/20/25 07:03 Weight: 77 kg 07/20/25 07:03 Body Mass Index (BMI) 27.3 07/20/25 07:03 Respiratory Assessment Respiratory Assessment - door technician: Respiratory Tract Infection Hx - door technician Hx Respiratory Tract Infection No 07/06/25 08:31 STOP Sleep Apnea STOP Sleep Apnea - door technician: STOP Sleep Apnea - door technician Hx Hypertension No 07/06/25 08:31 Hx Sleep Apnea No 07/06/25 08:31 CPAP BIPAP Do you snore loudly (louder No 07/06/25 08:31 than talking or can be heard Do you often feel tired/ No 07/06/25 08:31 fatigued/ sleepy during daytime? Has anyone observed you stop No 07/06/25 08:31 breathing during sleep? STOP Results Negative 07/06/25 08:31 QUESTION #5 FULL TEXT : Do you snore loudly (louder than talking or can be heard through closed doors)? 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 Specify any problems Hx of Preganancy in last 3 N/A 07/06/25 08:31 Months Nurse Filling Out Transfusion NBUCHER 07/06/25 08:31 & Questions: Date: 07/06/25 07/06/25 08:31 Time: 08:32 10 08:31 Patient unable to answer at this time (ie. confused, unrespo /Reproduction History /Reproductive History - door technician: /Reproductive Hx- door technician Hx Now No 07/06/25 08:31 Gestational Age (in weeks): EDC: Hx Hx Para Hx Section SAB No 07/06/25 08:31 Active Medications Active Medications: Current Medications Generic Name Dose Route Start Last Admin Trade Name Freq PRN Reason Stop Dose Admin Cefazolin Sodium 2 gm/ Sodium 110 mls @ 200 mls/hr 07/20/25 08:15 Chloride IV 07/20/25 08:47 INTRAOP ONE Lactated Ringer's 1,000 mls @ 15 mls/hr 07/20/25 06:45 07/20/25 07:16 IV 15 mls/hr .Q48H RUSSELL Administration PFSH Medical History Loss of hearing Wears glasses Former smoker Non-smoker Left rotator cuff tear FH: cholecystectomy IBS (irritable bowel syndrome) Gallstones History of back problems Seasonal allergies Home Medications ?Medication ?Instructions ?Recorded ?Last Taken ?Type fluticasone propionate 50 1 spray intranasal DAILY PRN 05/24/22 Unknown History mcg/actuation nasal allergy symptoms spray,suspension zolpidem 5 mg tablet 5 mg PO QHS Insomnia 05/20/24 07/19/25 History potassium chloride 20 mEq 20 meq PO ONCE Hypokalemia 08/16/24 07/19/25 History tablet,extended release 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 03/03/25 07/19/25 History betahistine (bulk) 100 % powder 1 ea miscellaneous TID 05/16/25 07/19/25 History fezolinetant 45 mg tablet (Veozah) 45 mg PO DAILY 07/06/25 07/19/25 History gabapentin 300 mg capsule 300 mg PO QHS 07/06/25 07/19/25 History prednisone 10 mg tablet 10 mg PO UD PRN MENIERES 07/06/25 Unknown History semaglutide 0.25 mg or 0.5 mg (2 0.25 mg subcut TH 07/06/25 07/07/25 History mg/3 mL) subcutaneous pen injector Allergy/AdvReac Type Severity Reaction Status Date / Time bupropion (From Wellbutrin) Allergy Mild Itching Verified 07/20/25 07:00 Family History Mother Breast cancer Arthritis Depression Hypertension High cholesterol Surgical History History of colonoscopy History of lumbar surgery Hx of section History of hysterectomy Social History Smoking Status: Former smoker alcohol intake: never substance use type: does not use Review of Systems (Anesthesia) ROS Narrative System reviewed and no additional complaints, except as documented.
[2025-07-20] MEDS: Epinephrine (1 mg/ml) 1 MG/ML VIAL (08:03)
[2025-07-20] MEDS: Midazolam 2 MG/2 ML Syringe IV (08:11)
[2025-07-20] MEDS: Cefazolin 1 GM/5 ML Vial 2 GM IV (08:26)
[2025-07-20] MEDS: Lactated Ringers 1,000 ML 1000 ML IV (08:26)
[2025-07-20] MEDS: Lidocaine 1% (5 ml sdv) 5 ML Vial 6 ML IV (08:31)
--- NOTE | 2025-07-20 09:29 | OP.PCM_ITS ---
Procedures Musculoskeletal 20xxx-29xxx: Other Procedure See Report Operative Report (Standard) Operative Information Date of Procedure: 07/20/25 Pre-Operative Diagnosis: L shoulder impingement, rotator cuff tear Post-Operative Diagnosis: same Surgery/Procedure Performed: L shoulder arthroscopy, SAD, RC repair fitting room associate: Yes Visual Display Associate: bharathi Tasks completed by assistant offset press operator: Retracting Type of Anesthesia: Block,Regional and General RN Documented Start/Stop Times: Operation Date: 07/20/25 08:15 Case Time Into Pre-Op 07/20/25 06:32 Anesthesia Start 07/20/25 08:26 Into Room 07/20/25 08:26 Out of Pre-Op 07/20/25 08:26 Procedure Start 07/20/25 08:53 Into Recovery Procedure Start Time: 08:53 Procedure Stop Time: 09:35 Select all DRAINS/GRAFTS/IMPLANTS that apply: Implanted device Implanted device details: as described in op note Estimated Blood Loss: 25 Specimen collected: No Description of surgery: Patient brought to the operating room theater. Placed supine on the table. General anesthesia induced. Ancef 2g IV administered prior to the start of the case. All bony prominences padded. SCDs on the legs. Patient transferred left side up lateral decubitus beanbag positioner used as well as axillary roll placed. SCDs on the legs. Upper extremity in traction 10 pounds in line with the arm in 40 degrees of abduction. Upper extremity prepped and draped in the usual sterile fashion with chlorhexidine-based prep solution allowing over 3 minutes drying time prior to draping. Preoperative timeout performed to confirm the site patient and the surgery. Began by inserting the arthroscope into the intra-articular portion of the shoulder. Made a anterior portal through the rotator interval using inside-out spinal needle localization. Did a full diagnostic arthroscopy. Cartilage on the glenoid and humeral head was normal. Normal labrum. Normal infraspinatus. Normal subscapularis stable attachment. Axillary right recess entered no loose bodies. Normal long head of the biceps normal biceps root attachment. There is a partial thickness thinning and tearing anterior leading edge of the supraspinatus. I identified this from the intra-articular portion of the shoulder and then inserted the arthroscope into the subacromial space. I gently debrided the edge of the tear. About 50% thickness isolated to anterior leading edge, but cable intact. I inserted a cannula laterally. I did a complete bursectomy. Moderate inflammatory bursitis. I did a subacromial decompression for 5mm, type 2 acromion, released the CA ligament and made the undersurface the acromion flat and collinear. Used a high-speed pratibha for this. I passed 2 trans tendon arthrex fibertak all suture knotless anchors anterior and posterior to the tear. Then used the repair suture from 1 anchor converted through the shuttling mechanism of the other anchor. I did this twice, then went back and forth to achieve good tension on the repair. I then used the 2 free ends to pass laterally into a separate Arthrex 4.75 mm bio composite swivel lock anchor, to create a triangular repair configuration. Sutures were removed and cut short. The repair was stable solid watertight good with good compression at the repair site. Final arthroscopy pictures taken and saved onto the system. Arthroscope withdrawn wounds thoroughly cleaned. Wet and dry dressings portal sites closed with 3-0 Monocryl sutures. Skin cleaned with wet and dry dressing followed application of Steri-Strips Adaptic 4 x 4 gauze ABD dressing cloth tape with an abduction pillow sling for the upper extremity. Patient woken up from a general anesthetic transit left operating table taken to postanesthetic care unit in stable condition. All sponge needle instrument counts were correct no complications. Plan for patient discharged home according to day surgery criteria follow-up in the office within 2 weeks time. CPT 29945, 07895 Surgical Findings: as above Complications Complications: No Admit VTE Documentation VTE Present on Admission: No VTE Mechan Device Prophylaxis: SCD's VTE Pharm Prophylaxis ordered?: No Reason prophylaxis not ordered: Treatment Not Indicated
--- NOTE | 2025-07-20 09:37 | EX.PCM.DISCH ---
Discharge Instructions Diet Discharge Diet: No restrictions Activity Discharge Activity: Return to Normal Activity Ice area for (Minutes): 10 Lifting Restrictions: no lifting over 1 pound, ok to remove sling at rest Additional Activity Instructions:: pendulums and hand/wrist/elbow rom 4x/day Dressing / Incision Call your doctor if your incision/area has: Continuous Slow Oozing, Sudden Increased Bleeding, Increased Pain/ Swelling, Increased Redness, Foul Smelling Discharge and Swelling at the incision site Call your doctor if you observe: Fever of 101 or Higher, Coldness, Increased Pain and Numbness or Tingling Change Dressing in: leave in place till F/U Cleanse incision/area with: Do not get Incision Wet Additional Dressing/Incision Instructions:: ok to change dressing, but keep covered. Follow Up Care Please Follow Up With: Pepe Garcia MD When: within 2 weeks Test Results: Test results from this visit will be discussed in further detail at your follow-up appointment, if applicable. Discharge Plan Admission Attending Provider: Pepe Garcia Primary Care Provider: Dirk Hayes Instructions Print Language: Danish Discharge Orders/Prescriptions Prescriptions: New oxycodone-acetaminophen [Percocet] 5-325 mg tablet 1 tab PO Q4H MDD 6 PRN (Reason: pain) 3 Days Qty: 20 0RF No Action fluticasone propionate 50 mcg/actuation spray,suspension 1 spray intranasal DAILY PRN (Reason: allergy symptoms) Patient Comments: USE 1 SPRAY IN THE NOSTRIL TWICE A DAY zolpidem 5 mg tablet 5 mg PO QHS potassium chloride 20 mEq tablet extended release 20 meq PO ONCE spironolactone 25 mg tablet 100 mg PO DAILY betahistine (bulk) 100 % powder 1 ea miscellaneous TID Patient Comments: [NO ORIGINAL SIG] Rx Instructions: 16 mg TID Veozah 45 mg tablet 45 mg PO DAILY gabapentin 300 mg capsule 300 mg PO QHS semaglutide 0.25 mg or 0.5 mg (2 mg/3 mL) pen injector 0.25 mg subcut TH Rx Instructions: for 4 weeks prednisone 10 mg tablet 10 mg PO UD PRN (Reason: MENIERES ) Rx Instructions: Take 4 tablets daily for 3 days, then 3 daily for 3 days, then 2 daily for 3 days, then 1 a day for 3 days then 1 QOD for 3 doses. Other Ambulatory Orders: 12 Lead EKG (Routine) Location: None Selected Ordered By: Dr. Maurizio Bailey Referrals / Follow Up: Dirk Hayes MD [Primary Care Provider, Family Practice] Pepe Garcia MD [Med Staff - Active Staff, Orthopedics] Disposition Disposition (needs filled in before D/C Order can be placed): Home, Self Care
--- NOTE | 2025-07-20 12:24 | PCM.POST.ANE ---
Anesthesia: Postop Eval I Current Vital Signs Temperature: 97 F Pulse Rate: 97 Blood Pressure: 102/64 Respiratory Rate: 16 Pulse Ox: 97 Assessment Airway patent: Yes Spontaneous unlabored respirations: Yes nausea: No Vomiting: No Anesthesia Complication: No Fluid Hydration Crystalloid volume administer (ml): 1,000 Total IV fluid infused: 1,000 Progress Note Anesthesia document: Postop Eval 1 completed: Yes
--- NOTE | 2025-07-20 13:56 | POSTOPAN2_ITS ---
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
--- NOTE | 2025-07-20 13:56 | PCM.POSTANE2 ---
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 Spontaneous unlabored Yes 07/20/25 12:24 [email or web address] respirations Mental status nausea No 07/20/25 12:24 [email or web address] Vomiting No 07/20/25 12:24 [email or web address] Anesthesia Postop Eval I: Fluid Summary Crystalloid volume administer 1,000 07/20/25 12:24 [email or web address] (ml) Colloids volume administered ( ml) Blood Product volume administered (ml) Total IV fluid infused 1,000 07/20/25 12:24 [email or web address] Anesthesia Postop Eval I: Summary Notes Anesthesia Complication No 07/20/25 12:24 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
== END 2025-07-20 11:50 | disposition home or self-care (01) ==
LOC: SDC 06:18 → AC 06:21
PROVIDERS: Anesthesiology; PCP Family Medicine; Referring Provider Orthopaedic Surgery Sports Medicine; Visit Provider Orthopaedic Surgery Sports Medicine
PROC: (CPT 29805; principal; 2025-07-20 07:55)
DX: M75.102 Unspecified rotator cuff tear or rupture of left shoulder, not specified as traumatic (principal); M75.42 Impingement syndrome of left shoulder; Z87.891 Personal history of nicotine dependence; Z79.899 Other long term (current) drug therapy; X58.XXXA Exposure to other specified factors, initial encounter
CPT/HCPCS: 29827; 29826; 64450; 01630; 36415; 80048; 93005; C1713; J2405